=== PATIENT | female | born 1965 | race Caucasian/White ===

== ENCOUNTER → 2016-09-20 | Outpatient (CLI) | payer MEDICARE ==
--- NOTE | 2016-09-21 13:15 | XR ---
EXAMINATION TYPE: XR Hip Bilateral and AP pelvis DATE OF EXAM: 09/20/2016 2:24 PM COMPARISON: NONE HISTORY: Gait disturbance, multiple sclerosis, spasm TECHNIQUE: A single AP view of the pelvis is obtained. Two views of the bilateral hips are obtained. FINDINGS: There is no acute fracture/dislocation evident in the pelvis. The hip and sacroiliac join ts appear symmetric and unremarkable. The overlying soft tissue appears unremarkable. There is a lum bar scoliosis. Two views of bilateral hips show no acute fracture or dislocation. Loss of joint space present at the right hip with subchondral sclerosis, geode formation. Coxa valga deformity is suspected in the righ t hip, acetabular coverage thought to be shallow possibly due to developmental dysplasia of the hip. The overlying soft tissue is unremarkable. IMPRESSION: There is no acute fracture or dislocation in the pelvis or bilateral hips. Osteoarthriti c change in the right hip. Additional findings above.
== END | disposition home or self-care (01) ==
LOC: RADXRYALE 13:55
PROVIDERS: ATTEND Physical Medicine & Rehabilitation
DX: G35 Multiple sclerosis (principal); M16.11 Unilateral primary osteoarthritis, right hip
CPT/HCPCS: 73521

== ENCOUNTER → 2017-01-10 | Outpatient (CLI) | payer MEDICARE ==
[2017-01-10 11:56] LABS: Basophils % (A) 1 %; CHCM 31.7; Eosinophils # (A) 0.1 k/uL (0-0.7); Eosinophils % (A) 2 %; HCT 40.6 % (34.0-46.0); HDW 2.44; HGB 12.8 gm/dL (11.4-16.0); Luc # (Auto) 0.11; Luc % (Auto) 2; Lymphocytes # (A) 1.7 k/uL (1.0-4.8); Lymphocytes % (A) 24 %; MCH 29.1 pg (25.0-35.0); MCHC 31.6 g/dL (31.0-37.0); MCV 91.9 fL (80.0-100.0); Mean Platelet Volume 6.9; Monocytes # (A) 0.5 k/uL (0-1.0); Monocytes % (A) 7 %; Neutrophils # (A) 4.7 k/uL (1.3-7.7); Neutrophils % (A) 66 %; RBC 4.42 m/uL (3.80-5.40); RDW 13.5 % (11.5-15.5); WBC 7.1 k/uL (3.8-10.6); WBC (Perox) 7.16
[2017-01-10 11:59] LABS: Non-African American GFR(MDRD) >60 (>60 ml/min/1.73 sqM)
[2017-01-10 12:42] LABS: ALT 30 U/L (9-52); AST 17 U/L (14-36); Alkaline Phosphatase 69 U/L (38-126); Anion Gap 7 mmol/L; Blood Urea Nitrogen 13 mg/dL (7-17); Calcium 9.4 mg/dL (8.4-10.2); Carbon Dioxide 31 mmol/L (22-30); Chloride 104 mmol/L (98-107); Glucose 99 mg/dL (74-99); Non-African American GFR(MDRD) >60 (>60 ml/min/1.73 sqM); Potassium 4.2 mmol/L (3.5-5.1); Sodium 142 mmol/L (137-145); Total Bilirubin 0.4 mg/dL (0.2-1.3); Total Protein 6.6 g/dL (6.3-8.2)
[2017-01-10 13:14] LABS: Hepatitis B Surface Ag Index 0.07
[2017-01-10 13:19] LABS: Hepatitis B Core IgM Index 0.02
[2017-01-10 13:31] LABS: Hepatitis C Virus IgG Ab Negative (Negative); Hepatitis C Virus IgG Index 0.13
--- NOTE | 2017-01-10 15:34 | MR ---
MRI brain with and without contrast EXAMINATION TYPE: MR brain wo/w con DATE OF EXAM: 01/10/2017 1:02 PM COMPARISON: NONE HISTORY: ms TECHNIQUE: Multiplanar, multisequence images of the brain and brainstem is performed without and with utilizing 15 mL intravenous MultiHance gadolinium contrast. Demyelinating disease protocol with additional Sag ittal Flair sequence performed. FINDINGS: T2 Lesions Present : Yes Approximate Number of Lesions: Stable, similar number, periventricular confluent and scattered hyperi ntensities are present on T2 and inversion recovery Locations Identified : Pericallosal, periventricular, juxtacortical Enhancing Lesion(s) Present: No T1 Hypointense Lesion(s) Present: Yes Change from Prior: None Diffusion weighted images demonstrate no evidence of a recent infarct or other diffusion abnormality. Stable probable arachnoid cyst at the level of the posterior lateral ventricles. The ventricular sys tem and cisternal spaces are otherwise normal in size and appearance. The brain volume is age approp riate. Corpus callosum and pituitary, cervical medullary junction are stable. The craniocervical junction a ppears within normal limits. Post contrast images demonstrate no abnormal enhancement. The dural bhakti ous sinuses appear patent. The visualized sinuses are clear and the globes are intact. IMPRESSION: Stable exam, findings compatible with patient's history of multiple sclerosis
== END | disposition home or self-care (01) ==
LOC: RADMRIMAIN 11:21
PROVIDERS: ATTEND Psychiatry & Neurology Neurology
DX: G35 Multiple sclerosis (principal); N28.9 Disorder of kidney and ureter, unspecified; E55.9 Vitamin D deficiency, unspecified; R60.9 Edema, unspecified
CPT/HCPCS: 82784 ×3; 82785; 80053; 80074; 82565; 85025; 82306; 70553; A9577

== ENCOUNTER → 2017-03-02 | Outpatient (CLI) | payer MEDICARE ==
--- NOTE | 2017-03-06 07:34 | MM ---
Reason for exam: screening (asymptomatic). Last mammogram was performed 10 years and 11 months ago. History: Patient had first child at age 38. Family history of breast cancer in grandmother. Physical Findings: A clinical breast exam by your physician is recommended on an annual basis and results should be correlated with mammographic findings. MG 3D Screening Mammo W/Cad Bilateral CC and MLO view(s) were taken. No prior studies available for comparison. The breast tissue is heterogeneously dense. This may lower the sensitivity of mammography. Subtle partially obscured, partially circumscribed nodularity in the left anterior upper outer quadrant warrants further evaluation. Patient previous 2005 exam is no longer available. ASSESSMENT: Incomplete: need additional imaging evaluation, BI-RAD 0 RECOMMENDATION: Special view mammogram of the left breast. If lesion persists on supplemental views, image directed ultrasound is recommended. [facility] will attempt to contact patient to return for supplemental views and ultrasound if indicated.
== END | disposition home or self-care (01) ==
LOC: RADMAMWWP 13:23
PROVIDERS: ATTEND Family Medicine
DX: Z12.31 Encounter for screening mammogram for malignant neoplasm of breast (principal); R92.8 Other abnormal and inconclusive findings on diagnostic imaging of breast
CPT/HCPCS: 77063; G0202

== ENCOUNTER → 2017-03-14 | Outpatient (CLI) | payer MEDICARE ==
--- NOTE | 2017-03-15 08:48 | MM ---
Reason for exam: additional evaluation requested from abnormal screening. Last mammogram was performed less than 1 month ago. History: Patient had first child at age 38. Family history of breast cancer in grandmother. Physical Findings: Nurse did not find any significant physical abnormalities on exam. MG 3D Work Up W/Cad LT CC and MLO view(s) were taken of the left breast. Prior study comparison: March 02, 2017, bilateral MG 3d screening mammo w/cad. The breast tissue is heterogeneously dense. This may lower the sensitivity of mammography. 5mm nodularity persists in the anterior upper outer quadrant. Ultrasound is recommended. These results were verbally communicated with the patient and result sheet given to the patient on 03/14/17. ASSESSMENT: Incomplete: need additional imaging evaluation, BI-RAD 0 RECOMMENDATION: Ultrasound of the left breast. (upper outer quadrant)
--- NOTE | 2017-03-15 08:52 | USB ---
Reason for exam: additional evaluation requested from abnormal screening. History: Patient had first child at age 38. Family history of breast cancer in grandmother. US Breast Workup Limited LT Right breast ultrasound demonstrates a 0.7 x 0.3 x 0.5cm oval, mixed lesion at 12 o'clock and a 0.5 x 0.3 x 0.5cm oval, mixed lesion at 12 o'clock, both possibly 1 contiguous lesion. As no other lesion is seen in the upper outer quadrant, this probably corresponds to the mammographic finding. Biopsy with clip placement is recommended. These results were verbally communicated with the patient and result sheet given to the patient on 03/14/17. ASSESSMENT: Suspicious, BI-RAD 4 RECOMMENDATION: Surgical consultation and ultrasound core biopsy of the left breast. Called Dr. Johnson with mammographic findings and has scheduled an appointment for the patient for 04/06/17 at 9:[address] Harris. Biopsy schedule for 03/21/17 at 12:20. PRELIMINARY REPORT CALLED AND FAXED TO DR. HARRIS ON 03/15/17 /ROWAN. RYAN
== END | disposition home or self-care (01) ==
LOC: RADMAMWWP 13:09
PROVIDERS: ATTEND Family Medicine
DX: R92.8 Other abnormal and inconclusive findings on diagnostic imaging of breast (principal)
CPT/HCPCS: 76642; G0206; G0279

== ENCOUNTER → 2017-03-21 | Day surgery (SDC) | payer MEDICARE ==
[2017-03-21 12:11] VITALS: RESP 16; TEMP 97.9; BMI 29.9
[2017-03-21 14:03] VITALS: BP 130/80; PULSE 74
--- NOTE | 2017-03-21 15:49 | USB ---
EXAMINATION TYPE: US biopsy breast VAD LT DATE OF EXAM: 03/21/2017 CLINICAL HISTORY: R92.8 ABN Mammogram. TECHNIQUE: Ultrasound guided core biopsy of left breast. COMPARISON: NONE FINDINGS: The procedure of ultrasound guided core biopsy was explained to the patient. Benefits, alt ernatives, and risks were discussed. An informed consent was then obtained. The patient was placed in supine positioning for imaging and for the procedure. The overlying skin w as prepped and draped in usual sterile fashion. Lidocaine was used as anesthetic into the skin and s ubcutaneous tissue up to area of concern in the left breast. A luis was made with surgical scalpel. Under ultrasound guidance, a 12-gauge vacuum assisted biopsy gun device was used to obtain 13 core sa mples. The mammotome needle was placed under the lesion and upward sequential samples were obtained. Following 6 samples did not appear to be significant reduction in the size of the lesion. The lesion appeared very hard during the biopsy there was some upward movement of the lesion with the cutting s ection of the core. For this reason additional sections are obtained. The second set of 7 core sample s obtained following additional lidocaine administration did appear to reduce the size of the lesion and with adequate samples competently obtained the procedure was finished. Following this, a biopsy c lip was left in lesion. No significant hemorrhaging was evident. The patient tolerated the procedure well without any immediate complication. The patient was kept in the radiology department for short stay after the procedure and then discharged home in stable condi tion. Discharge instructions were discussed patient. Postprocedure mammogram is obtained. Clip placement is in the anterior upper outer left breast. IMPRESSION: Successful ultrasound guided core biopsy of area of concern in the left breast. Recommendations: 1. Recommendations are pending pathology results.
== END ==
LOC: RADUSWWP 11:50
PROVIDERS: ATTEND Surgery
DX: N60.12 Diffuse cystic mastopathy of left breast (principal); N60.82 Other benign mammary dysplasias of left breast; R92.8 Other abnormal and inconclusive findings on diagnostic imaging of breast
CPT/HCPCS: 88305; 19083; G0206; A4648; J2001

== ENCOUNTER → 2017-05-12 | Outpatient (CLI) | payer MEDICARE ==
[2017-05-12 13:15] LABS: Blood Urea Nitrogen 15 mg/dL (7-17); Non-African American GFR(MDRD) >60 (>60 ml/min/1.73 sqM)
--- NOTE | 2017-05-12 14:14 | MR ---
EXAMINATION TYPE: MR lumbar spine wo con DATE OF EXAM: 05/12/2017 COMPARISON: 08/10/2015 HISTORY: ms TECHNIQUE: T1 and T2 axial and sagittal images of the lumbar spine are submitted. Correlate with th e numbering system prior to any surgical intervention used on the MRI. FINDINGS: There is no abnormal signal seen within the visualized spinal cord or paraspinal soft tissu es. Multilevel degenerative disc disease noted. At T12-L1, diffuse disc bulge mild facet arthropathy. Changes mildly narrow the spinal canal without significant foraminal stenosis. Hypertrophic change of the facets. At L1-L2, trace retrolisthesis with right paracentral bulging disc and facet arthropathy. Changes cau se mild spinal canal stenosis without significant foraminal stenosis. There is facet arthropathy. At L2-L3, diffuse disc bulge with posterior annular tear and hypertrophic facet arthropathy. Changes result in moderate spinal canal stenosis with mild bilateral neuroforaminal stenosis. At L3-L4, there is trace retrolisthesis with diffuse disc bulge greater paracentrally and laterally t o the right and hypertrophic facet arthropathy. Additional ligamentum flavum thickening and resultant mild left and moderate right neuroforaminal stenosis with mild spinal canal stenosis. At L4-L5, there is anterolisthesis with broad-based disc bulging with a more focal right paracentral disc protrusion. And facet arthropathy with ligamentum flavum thickening. Changes result in moderate right neuroforaminal stenosis with mild spinal canal stenosis. There appears to be abutment of the tr aversing right L5 nerve. At L5-S1, diffuse bulging disc with hypertrophic facet arthropathy. Changes result in moderate left a nd mild right neuroforaminal stenosis without spinal canal stenosis. No prevertebral or paravertebral soft tissue abnormality seen. IMPRESSION: 1. Multilevel disc/endplate degenerative change as well as hypertrophic facet arthropathy, progressed from 04/11/2012. Posterior annular fissure is at T12-L1, L2-L3, and L5-S1. 2. New edematous Modic type I endplate change towards the right at L4-L5. Rightward truncal shift or leftward spinal curvature probably positional or due to muscle spasm as this is new from 2011. 3. New grade 1 anterolisthesis at L4-L5 and new trace retrolisthesis at L1-L2, L2-L3, and L4-L5. 4. Mild spinal canal stenoses throughout, though, moderate at L2-L3. 5. Variable mild to moderate neuroforaminal stenoses as outlined above. There is also abutment of the traversing right L5 nerve root at the L4-L5 level. IMPRESSION: 1.
--- NOTE | 2017-05-12 19:01 | MR ---
EXAMINATION TYPE: MR cervical spine wo/w con DATE OF EXAM: 05/12/2017 COMPARISON: Prior cervical MRI 10/30/2015 HISTORY: ms TECHNIQUE: Multiplanar, multisequence images of the cervical spine were acquired utilizing 8 mL intravenous Gada vist gadolinium contrast. Diffusion weighted imaging was performed. C2-C3: No evidence for degenerative disc disease. No disc bulge/herniation or protrusion. No Canal stenosis. Foramina are patent bilaterally. C3-C4: Posterior disc bulge in the left posterior paracentral location is again noted causing anterol ateral mass effect on the thecal sac. There is some left-sided foraminal encroachment.. C4-C5: Small posterior disc bulge causes minimal anterior mass effect on the thecal sac. Right-sided foraminal encroachment is present greater than left. C5-C6: Stable posterior disc herniation is present contacting the anterior cervical cord.. C6-C7: Small posterior disc bulge causes minimal anterior mass effect on the thecal sac. C7-T1: No evidence for degenerative disc disease. No disc bulge/herniation or protrusion. No Canal stenosis. Foramina are patent bilaterally. Cervical segments are intact. There is normal alignment. Cervical spinal cord shows stable abnormal signal. Increased signal on T2-weighted sequences is present at C5-6. Increased signal more inferio rly within the cord is not as well seen but is present. Suspect abnormal signal also present within t he medulla seen on sagittal image is similar to prior exam as well as likely within the cervical cord at C2-3 seen on axial images at or than on sagittal images. No abnormal enhancement following contra st administration.. Craniovertebral junction relationships are within normal limits. IMPRESSION: Stable abnormal signal within the cervical cord is suspected, correlate for multiple sclerosis. Addit ional findings above. Degenerative disc changes are again noted.
== END | disposition home or self-care (01) ==
LOC: RADMRIMAIN 12:15
PROVIDERS: ATTEND Psychiatry & Neurology Neurology
DX: M48.06 Spinal stenosis, lumbar region (principal); M43.16 Spondylolisthesis, lumbar region; M47.816 Spondylosis without myelopathy or radiculopathy, lumbar region; M46.86 Other specified inflammatory spondylopathies, lumbar region; M47.812 Spondylosis without myelopathy or radiculopathy, cervical region; G35 Multiple sclerosis; N28.9 Disorder of kidney and ureter, unspecified
CPT/HCPCS: 82565; 84520; 72148; 72156; 36415; A9581

== ENCOUNTER → 2017-10-09 | Outpatient (CLI) | payer MEDICARE ==
--- NOTE | 2017-10-09 11:21 | MM ---
Reason for exam: follow-up at short interval from prior study. Last mammogram was performed 7 months ago. History: Patient had first child at age 38. Family history of breast cancer in grandmother. Benign US biopsy breast VAD LT of the left breast, March 21, 2017. Physical Findings: Nurse did not find any significant physical abnormalities on exam. MG 3D Diag Mammo W/Cad LT CC and MLO view(s) were taken of the left breast. Prior study comparison: March 21, 2017, left breast MG diagnostic mammo LT wo CAD. March 14, 2017, left breast MG 3d work up w/cad LT. The breast tissue is heterogeneously dense. This may lower the sensitivity of mammography. 1 o'clock focal asymmetry redemonstrated. Coil clip is located here. These results were verbally communicated with the patient and result sheet given to the patient on 10/06/17. ASSESSMENT: Incomplete: need additional imaging evaluation, BI-RAD 0 RECOMMENDATION: Ultrasound of the left breast.
--- NOTE | 2017-10-09 11:23 | USB ---
Reason for exam: additional evaluation requested from abnormal screening. History: Patient had first child at age 38. Family history of breast cancer in grandmother. Benign US biopsy breast VAD LT of the left breast, March 21, 2017. US Breast LT Left breast ultrasound includes all four quadrants, the retroareolar region and axilla. Finding demonstrates a 0.5 x 0.5 x 0.3cm area of previous biopsy at 12 o'clock. This is smaller post biopsy, previously measuring 7 x 5 x 3mm. As the patient's baseline exam was performed on 03/02/17, additional short term mammogram follow up recommended. These results were verbally communicated with the patient and result sheet given to the patient on 10/09/17. ASSESSMENT: Probably benign, BI-RAD 3 RECOMMENDATION: Follow-up diagnostic mammogram of both breasts in 6 months.
== END | disposition home or self-care (01) ==
LOC: RADMAMWWP 09:28
PROVIDERS: ATTEND Surgery
DX: R92.8 Other abnormal and inconclusive findings on diagnostic imaging of breast (principal); Z80.3 Family history of malignant neoplasm of breast
CPT/HCPCS: 77065; 76641; G0279

== ENCOUNTER → 2017-10-12 | Outpatient (CLI) | payer MEDICARE ==
[2017-10-12 10:28] LABS: Blood Urea Nitrogen 18 mg/dL (7-17)
--- NOTE | 2017-10-12 11:45 | MR ---
EXAMINATION TYPE: MR brain wo/w con DATE OF EXAM: 10/12/2017 COMPARISON: 01/10/2017 HISTORY: 52 year-old female follow-up Multiple sclerosis TECHNIQUE: Multiplanar, multisequence images of the brain and brainstem is performed without and with utilizing 8.5 mL intravenous Gadavist gadolinium contrast. Demyelinating disease protocol with eli tional Sagittal Flair sequence performed. FINDINGS: T2 Lesions Present : Yes Approximate Number of Lesions: Approximately 20-25 in the left cerebral hemisphere and 15 in the righ t cerebral hemisphere. Locations Identified : Only a couple juxta cortical. Many periventricular and deep white matter lesio ns with Posey finger appearance. Size of Reference Lesion(s): 1. 7 x 7 mm in the left periatrial white matter, axial image 18, unchanged. 2. 1.7 x 0.6 cm left paraventricular region between the atrium and temporal horn, sagittal image 10, unchanged. Enhancing Lesion(s) Present: No T1 Hypointense Lesion(s) Present: Yes Change from Prior: None Diffusion weighted images demonstrate no evidence of a recent infarct or other diffusion abnormality. There is some T2 shine through in the left paraventricular region. Incidental choroid plexus cysts are unchanged. There is no worrisome extra-axial fluid collection. The ventricular system and cisternal spaces are normal in size and appearance. The brain volume is age appropriate. Persistent cavum vergae. Midline structures otherwise demonstrate normal morphology. The craniocervi nadja junction appears within normal limits. Post contrast images demonstrate no abnormal enhancement. The dural venous sinuses appear patent. Mild mucosal thickening left maxillary sinus. Globes are intact. IMPRESSION: 1. Stable chronic T2 bright white matter change with moderate scattered burden primarily in the periv entricular and deep white matter. Findings in keeping with the patient's MS. 2. No appreciable change or enhancing lesions.
== END | disposition home or self-care (01) ==
LOC: RADMRIMAIN 09:47
PROVIDERS: ATTEND Psychiatry & Neurology Neurology
DX: R93.0 Abnormal findings on diagnostic imaging of skull and head, not elsewhere classified (principal); G35 Multiple sclerosis; I10 Essential (primary) hypertension
CPT/HCPCS: 82565; 84520; 70553; 36415; A9581

== ENCOUNTER → 2018-03-30 | Outpatient (CLI) | payer MEDICARE ==
--- NOTE | 2018-03-31 15:06 | MR ---
EXAMINATION TYPE: MR brain wo/w con DATE OF EXAM: 03/30/2018 COMPARISON: 10/12/2017 HISTORY: MS CONTRAST: Performed utilizing 8.5 mL intravenous Gadavist gadolinium contrast. TECHNIQUE: Multiplanar, multisequence imaging of the brain is performed on a 3.0 [place] magnet. Demye linating disease protocol with additional Sagittal Flair sequence is performed. Study is performed wi thin 24 hours of arrival to the hospital. FINDINGS: T2 White Matter Lesions Present : Yes Approximate Number of Lesions: Multiple scattered Locations Identified : Periventricular oriented perpendicular to the corpus callosum, centrum semiova le ovale bilaterally. Size of Largest Lesion(s): 1. 1.2 x 0.8 x 0.7 cm. Location: Posterior right periventricular. Sequence 501 Image 21 (axial) and Sequence 601 Image 22 (sagittal). 2. 0.8 x 0.6 x 0.6 cm. Location: Periventricular adjacent to the occipital horn of the left lateral ventricle Sequence 501 Image 18 (axial) and Sequence 601 Image 11 (sagittal). Enhancing Lesion(s) Present: No Change from Prior: Stable Diffusion-weighted imaging is performed. There may be some stable subtle uptake in the left centrum semiovale this area appears to correspond to hyperintensity on T2 and inversion recovery weighted seq uences. This could be an active plaque. This was present previously and appears stable in size and co nfiguration. Ventricles and sulci are appropriate for the patient age. There is a patent cavum vergae, a normal va riant. There are no abnormal extra-axial fluid collections. The ventricular system and cisternal spaces are normal in size and appearance. The brain volume is age appropriate. The craniocervical junction homero ears within normal limits. The dural venous sinuses appear patent. No abnormal enhancement is present on post contrast images. . The visualized sinuses are clear. Visu alized orbits are unremarkable. IMPRESSION: 1. Scattered multiple bilateral periventricular lesions and atypical configuration from multiple scl erosis. Findings are stable from the comparison of 10/12/2017. A subtle active plaque may be adjacent to the superior left lateral ventricle and appears stable from October 10, 2017
== END ==
LOC: RADMRIMAIN 11:31
PROVIDERS: ATTEND Psychiatry & Neurology Neurology
DX: G35 Multiple sclerosis (principal)
CPT/HCPCS: 70553; A9581

== ENCOUNTER → 2018-03-30 | Outpatient (CLI) | payer MEDICARE ==
--- NOTE | 2018-03-31 10:55 | MM ---
Reason for exam: additional evaluation requested from prior study. Last mammogram was performed 6 months ago. History: Patient had first child at age 38. Family history of breast cancer in grandmother. Benign US biopsy breast VAD LT of the left breast, March 21, 2017. Physical Findings: Nurse did not find any significant physical abnormalities on exam. MG 3D Diag Mammo W/Cad [place] Bilateral CC and MLO view(s) were taken. Prior study comparison: October 09, 2017, left breast MG 3d diag mammo w/cad LT. March 21, 2017, left breast MG diagnostic mammo LT wo CAD. The breast tissue is heterogeneously dense. This may lower the sensitivity of mammography. Left breast biopsy marker noted around stable subcentimeter masses. These results were verbally communicated with the patient and result sheet given to the patient on 03/30/18. ASSESSMENT: Benign, BI-RAD 2 RECOMMENDATION: Routine screening mammogram of both breasts in 1 year.
== END | disposition home or self-care (01) ==
LOC: RADMAMWWP 10:35
PROVIDERS: ATTEND Surgery
DX: R92.8 Other abnormal and inconclusive findings on diagnostic imaging of breast (principal)
CPT/HCPCS: 77066; G0279; 77062

== ENCOUNTER → 2018-09-28 | Outpatient (CLI) | payer MEDICARE ==
[2018-09-28 16:19] LABS: ALT 40 U/L (9-52); AST 22 U/L (14-36); Albumin 3.9 g/dL (3.5-5.0); Alkaline Phosphatase 64 U/L (38-126); Anion Gap 5 mmol/L; Blood Urea Nitrogen 14 mg/dL (7-17); Calcium 9.9 mg/dL (8.4-10.2); Carbon Dioxide 33 mmol/L (22-30); Chloride 104 mmol/L (98-107); Glucose 92 mg/dL (74-99); Potassium 4.2 mmol/L (3.5-5.1); Sodium 142 mmol/L (137-145); Total Bilirubin 0.4 mg/dL (0.2-1.3); Total Protein 6.9 g/dL (6.3-8.2)
[2018-09-28 16:30] LABS: Basophils % (A) 1 %; Eosinophils # (A) 0.1 k/uL (0-0.7); Eosinophils % (A) 2 %; HCT 43.9 % (34.0-46.0); HGB 14.1 gm/dL (11.4-16.0); Lymphocytes # (A) 1.4 k/uL (1.0-4.8); Lymphocytes % (A) 23 %; MCH 28.4 pg (25.0-35.0); MCHC 32.2 g/dL (31.0-37.0); MCV 88.2 fL (80.0-100.0); Mean Platelet Volume 7.1; Monocytes # (A) 0.5 k/uL (0-1.0); Monocytes % (A) 8 %; Neutrophils % (A) 66 %; Platelet Count 309 k/uL (150-450); RBC 4.98 m/uL (3.80-5.40); RDW 14.5 % (11.5-15.5)
[2018-09-28 23:10] LABS: Immunoglobulin E 13.4 IU/mL (0.00-114.00)
--- NOTE | 2018-09-29 19:13 | MR ---
EXAMINATION TYPE: MR brain wo/w con DATE OF EXAM: 09/28/2018 COMPARISON: 03/30/2018 and 10/12/2017 HISTORY: HX of MS, Previous MRI on PACS, Gadavist 7.5ml TECHNIQUE: Multiplanar, multisequence images of the brain and brainstem is performed without and with utilizing 7.5 mL intravenous Gadavist gadolinium contrast. Demyelinating disease protocol with additional Sagi ttal Flair sequence performed. FINDINGS: T2 Lesions Present : Yes Approximate Number of Lesions: Multiple scattered, predominantly in a pericallosal distribution with a Posey finger appearance typical of multiple sclerosis. Overall there are approximately 26 within t he left cerebral hemisphere and 15 within the right cerebral hemisphere. Locations Identified : Pericallosal and periventricular again with a Posey's finger appearance. Size of Reference Lesion(s): 1. 0.8 cm x 0.6 cm x 0.6 cm on axial image 18 and sagittal image 15 , stable from the prior 2 1.1 cm x 0.5 cm x 0.9 cm on axial image 22 and sagittal image 25 , stable from the prior Enhancing Lesion(s) Present: No T1 Hypointense Lesion(s) Present: Yes Change from Prior: No significant change Diffusion weighted images demonstrate no evidence of a recent infarct or other diffusion abnormality. There is no worrisome extra-axial fluid collection. The ventricular system and cisternal spaces ar e prominent in size symmetrically compatible with mild age-related volume loss incidentally noted cav um septum pellucidum et verge, normal variant. Incidentally noted choroid plexus cysts are again pres ent. Midline structures demonstrate normal morphology. The craniocervical junction appears within normal limits. Post contrast images demonstrate no abnormal enhancement. The dural venous sinuses appear pa tent. The visualized sinuses are clear and the globes are intact. IMPRESSION: Overall stable appearance of the pericallosal demyelinating plaques in keeping with the patient's his tory of multiple sclerosis. No enhancing lesions or lesions that demonstrate restricted diffusion to indicate active demyelination at this time.
== END | disposition home or self-care (01) ==
LOC: RADMRIMAIN 15:41
PROVIDERS: ATTEND Psychiatry & Neurology Neurology
DX: G35 Multiple sclerosis (principal)
CPT/HCPCS: 80053; 85025; 82784 ×3; 82785; 70553; A9585; 86355; 86357; 86359; 86360

== ENCOUNTER → 2020-01-31 | Outpatient (CLI) | payer MEDICARE ==
--- NOTE | 2020-02-02 19:11 | MR ---
EXAMINATION TYPE: MR brain wo/w con DATE OF EXAM: 01/31/2020 COMPARISON: 09/28/2018 HISTORY: 54-year-old female MS follow-up TECHNIQUE: Multiplanar, multisequence images of the brain and brainstem is performed without and with utilizing 8.5 mL intravenous Gadavist gadolinium contrast. Demyelinating disease protocol with eli tional Sagittal Flair sequence performed. FINDINGS: T2 Lesions Present : Yes Approximate Number of Lesions: 20 - 25 in the left cerebral hemisphere and 10 - 15 in the right cereb ral hemisphere. Locations Identified : Pericallosal, periatrial, deep white matter. Some Posey finger configuration. Size of Reference Lesion(s): 1. 7 mm left periatrial region, axial image 20, unchanged. 2. 1.2 x 0.6 cm in the right pericallosal region, axial image 23, unchanged. Enhancing Lesion(s) Present: None T1 Hypointense Lesion(s) Present: Yes Change from Prior: None Diffusion weighted images demonstrate no evidence of a recent infarct or other diffusion abnormality. There is no worrisome extra-axial fluid collection. The ventricular system and cisternal spaces ar e normal in size and appearance. The brain volume is age appropriate. Redemonstrated normal variation cavum vergae. Midline structures demonstrate normal morphology. The craniocervical junction appears within normal limits. Post contrast images demonstrate no abnormal enhancement. The dural venous sinuses appear patent. The visualized sinuses are clear and the globes are intact. IMPRESSION: Stable moderate scattered burden of pericallosal and periatrial white matter change in keeping with p atient's history of multiple sclerosis. No enhancing plaques or acute intracranial abnormality seen.
== END | disposition home or self-care (01) ==
LOC: RADMRIMAIN 13:48
PROVIDERS: ATTEND Psychiatry & Neurology Neurology
DX: G35 Multiple sclerosis (principal)
CPT/HCPCS: 70553; A9585

== ENCOUNTER → 2020-08-07 | Outpatient (CLI) | payer MEDICARE ==
--- NOTE | 2020-08-07 11:10 | US ---
EXAMINATION TYPE: US kidneys/renal and bladder DATE OF EXAM: 08/07/2020 COMPARISON: NONE CLINICAL HISTORY: N39.0 frequent uti. HX uti. Patient was scanned in a motorized chair. EXAM MEASUREMENTS: Right Kidney: 8.9 x 3.8 x 3.8 cm Left Kidney: 7.8 x 3.7 x 4.0 cm Limited visualization due to bowel gas and patient position Right Kidney: Limited visualization of medial and lower pole kidney Left Kidney: Lateral mid cystic appearing lesion = 1.1 x 1.2 x 1.2 cm Bladder: Internal debris seen Bilateral Jets seen IMPRESSION: 1. Left small renal cyst. 2. Debris within the urinary bladder
== END | disposition home or self-care (01) ==
LOC: RADUSWWP 10:27
PROVIDERS: ATTEND Urology
DX: N28.1 Cyst of kidney, acquired (principal); N39.0 Urinary tract infection, site not specified
CPT/HCPCS: 76770

== ENCOUNTER → 2020-08-24 | Outpatient (CLI) | payer MEDICARE ==
[2020-08-24 12:25] LABS: Basophils # (A) 0.1 k/uL (0-0.2); Basophils % (A) 1 %; Eosinophils # (A) 0.3 k/uL (0-0.7); Eosinophils % (A) 5 %; HCT 40.9 % (34.0-46.0); HGB 13.7 gm/dL (11.4-16.0); Lymphocytes # (A) 1.3 k/uL (1.0-4.8); Lymphocytes % (A) 25 %; MCH 30.2 pg (25.0-35.0); MCHC 33.5 g/dL (31.0-37.0); MCV 90.3 fL (80.0-100.0); Mean Platelet Volume 7.3; Monocytes # (A) 0.5 k/uL (0-1.0); Monocytes % (A) 10 %; Neutrophils % (A) 57 %; Platelet Count 242 k/uL (150-450); RBC 4.53 m/uL (3.80-5.40); RDW 13.8 % (11.5-15.5); WBC 5.2 k/uL (3.8-10.6)
[2020-08-24 12:43] LABS: Appearance,Urine Cloudy (Clear); Bilirubin,Urine Negative (Negative); Blood,Urine Negative (Negative); Calcium Oxalate Crystals,Urine Few /hpf; Color,Urine Yellow; Glucose,Urine (UA) Negative (Negative); Ketones,Urine Negative (Negative); Leukocyte Esterase,Urine Moderate (Negative); Mucus,Urine Rare /hpf; Nitrite,Urine Negative (Negative); Protein,Urine Negative (Negative); Specific Gravity,Urine 1.016 (1.001-1.035); Squamous Epithelial Cell,Urine 2 /hpf (0-4); Urobilinogen,Urine <2.0 mg/dL (<2.0); WBC,Urine 22 /hpf (0-5)
[2020-08-24 13:54] LABS: Erythrocyte Sedimentation Rate 11 mm/hr (0-20)
[2020-08-24 19:55] LABS: African American GFR (CKD) 120.6 (60.0-200.0); Anion Gap 4.6 mmol/L (4.00-12.00); BUN/Creat Ratio 26.67 Ratio (12.00-20.00); Calcium 9.6 mg/dL (8.7-10.3); Carbon Dioxide 31.4 mmol/L (21.6-31.8); Non-African American GFR(CKD) 104.1 (60.0-200.0); Potassium 4.1 mmol/L (3.5-5.5); Total Bilirubin 0.6 mg/dL (0.3-1.2)
[2020-08-24 21:14] LABS: Immunoglobulin E 7.07 IU/mL (0.00-114.00)
[2020-08-25 12:31] LABS: Natural Killer Cell (CD16/56) 145 cell/ul (60-500); Natural Killer Cell (CD16/56)% 10 % (3-24); T Helper Cell (CD4) 1065 cell/ul (443-1471); T Helper Cell (CD4) % 69 % (35-66); T Suppressor Cell (CD8) 289 cell/ul (190-832); T Suppressor Cell (CD8) % 19 % (9-37); T4/T8 Ratio (CD4:CD8) 3.7 (1.0-3.7); Total B Cell (CD19) <5 cell/ul (100-524); Total T Cell (CD3) 1365 cell/ul (704-2138); Total T Cell (CD3)% 89 % (55-86)
== END | disposition home or self-care (01) ==
LOC: LABWHC1 11:02
PROVIDERS: ATTEND Internal Medicine Infectious Disease
DX: N39.0 Urinary tract infection, site not specified (principal); N31.9 Neuromuscular dysfunction of bladder, unspecified; G35 Multiple sclerosis
CPT/HCPCS: 36415; 80053; 81001; 82784; 82785; 85025; 85652; 86355; 86357; 86359; 86360; 87040; 87086

== ENCOUNTER 2020-10-23 11:31 | Emergency (ER) | payer MEDICARE ==
[2020-10-23] MEDS ORDERED: ONDANSETRON 4 MG/2 ML VIAL IVP STA (11:52)
[2020-10-23] MEDS ORDERED: SODIUM CHLORIDE 0.9% 1,000 ML IV STA (11:52)
--- NOTE | 2020-10-23 12:04 | ED ---
Weakness HPI - General Source: patient, EMS Mode of arrival: EMS Limitations: physical limitation <Kathryn Johnson - Last Filed: 10/23/20 12:01> <Rui Andrade - Last Filed: 10/23/20 14:17> - General Chief complaint: Weakness Stated complaint: Weakness Time Seen by Provider: 10/23/20 11:35 - History of Present Illness Initial comments: Patient is a 55-year-old female with history of multiple sclerosis, uses w heelchair, presenting to the emergency Department with complaints of weakness, and poor appetite as been increasing over the past few days. Patient states that she finished a course of Keflex for a UTI about 3 days ago but feels like she is still having symptoms and concerned that the infection did not clear up. She states she's been having intermittent fevers at home. She does have some intermittent nausea, no vomiting, no diarrhea. She denies any abdominal pain. She denies chest pain or shortness of breath. She does admit to a cough over the last few days. She denies having a headache. She has no further complaints at this time. Upon arrival to the ER, patient's temperature is 99.0, pulse is 101, BP is 129/91, respiratory rate 20. (Kathryn Johnson) - Related Data Home Medications Medication Instructions Recorded Confirmed Gabapentin [Neurontin] 600 mg PO BID 03/16/17 10/23/20 tiZANidine HCL [Zanaflex] 8 mg PO BID 03/16/17 10/23/20 Gabapentin 600 mg PO DAILY PRN 10/23/20 10/23/20 Omeprazole [PriLOSEC] 20 mg PO DAILY 10/23/20 10/23/20 Solifenacin Succinate [Vesicare] 10 mg PO HS 10/23/20 10/23/20 Previous Rx's Medication Instructions Recorded Levofloxacin [Levaquin] 750 mg PO DAILY 10 Days #10 tab 10/23/20 Allergies Allergy/AdvReac Type Severity Reaction Status Date / Time No Known Allergies Allergy Verified 10/23/20 14:00 Review of Systems ROS Other: All systems not noted in ROS Statement are negative. <Kathryn Johnson - Last Filed: 10/23/20 12:01> ROS Other: All systems not noted in ROS Statement are negative. <Rui Andrade - Last Filed: 10/23/20 14:17> ROS Statement: Those systems with pertinent positive or pertinent negative responses have been documented in the HPI. Past Medical History Additional Past Medical History / Comment(s): Multiple sclerosis, spastic colon, left leg edema History of Any Multi-Drug Resistant Organisms: None Reported Past Surgical History: No Surgical Hx Reported Additional Past Surgical History / Comment(s): MS Past Anesthesia/Blood Transfusion Reactions: No Reported Reaction Past Psychological History: No Psychological Hx Reported Smoking Status: Never smoker Past Alcohol Use History: None Reported Past Drug Use History: None Reported <Kathryn Johnson - Last Filed: 10/23/20 12:01> General Exam Limitations: physical limitation <Kathryn Johnson - Last Filed: 10/23/20 12:01> - General Exam Comments Initial Comments: GENERAL: Patient is well-developed and well-nourished. Patient is nontoxic and in no acute distress, does appear fatigued. HEAD: Atraumatic, normocephalic. EYES: Pupils equal round and reactive to light, extraocular movements intact, sclera anicteric, conjunctiva are normal. Eyelids were unremarkable. ENT: TMs normal, nares patent, oropharynx clear without exudates. Dry mucous membranes. NECK: Normal range of motion, supple without lymphadenopathy or JVD. LUNGS: Unlabored respirations. Breath sounds clear to auscultation bilaterally and equal. No wheezes rales or rhonchi. HEART: Regular rate and rhythm without murmurs, rubs or gallops. ABDOMEN: Soft, nontender, normoactive bowel sounds. No guarding, no rebound. No masses appreciated. : Deferred MUSCULOSKELETAL: Patient has history of MS, multiple muscle contractures, patient uses wheelchair. No swelling or erythema, neurovascular intact. NEUROLOGICAL: Patient is alert and oriented x 3. Motor and sensory are also intact. Cranial nerves II through XII grossly intact. Symmetrical smile. Normal speech. PSYCH: Normal mood, normal affect. SKIN: Warm, Dry, normal turgor, no rashes or lesions noted. (Kathryn Johnson) Course Vital Signs 10/23/20 10/23/20 11:32 13:29 Temperature 99.0 F Pulse Rate 101 H 99 Respiratory 20 20 Rate Blood Pressure 129/91 130/86 O2 Sat by Pulse 99 99 Oximetry EKG Findings - EKG Comments: EKG Findings:: Ventricular rate 97 bpm, HI interval 130 ms, QRS duration 82 ms, QT/QTC 344/436 ms, PareT axes 46/49/28. Normal sinus rhythm, low voltage QRS, borderline ECG. <Rui Andrade - Last Filed: 10/23/20 14:17> Medical Decision Making - Lab Data Result diagrams: 10/23/20 12:11 10/23/20 12:11 - EKG Data -: EKG Interpreted by Me EKG shows normal: sinus rhythm Rate: normal - Radiology Data Radiology results: report reviewed, image reviewed <Rui Andrade - Last Filed: 10/23/20 14:17> - Medical Decision Making Case was taken over from Sherrill Johnson PA-C. She ordered labs, 4 mg Zofran, 1 L normal saline, EKG. Urine showed high levels white blood cells, 1 g of Rocephin ordered. Case discussed with Dr. Bro, decided was located discharge patient home with follow-up to urologist. (Rui Andrade) - Lab Data Lab Results 10/23/20 10/23/20 10/23/20 Range/Units 12:11 12:11 12:11 WBC 7.0 (3.8-10.6) k/uL RBC 5.19 (3.80-5.40) m/uL Hgb 14.6 (11.4-16.0) gm/dL Hct 44.0 (34.0-46.0) % MCV 84.7 D (80.0-100.0) fL MCH 28.2 (25.0-35.0) pg MCHC 33.3 (31.0-37.0) g/dL RDW 13.6 (11.5-15.5) % Plt Count 253 (150-450) k/uL MPV 7.5 Neutrophils % 83 % Lymphocytes % 7 % Monocytes % 8 % Eosinophils % 0 % Basophils % 1 % Neutrophils # 5.8 (1.3-7.7) k/uL Lymphocytes # 0.5 L (1.0-4.8) k/uL Monocytes # 0.6 (0-1.0) k/uL Eosinophils # 0.0 (0-0.7) k/uL Basophils # 0.1 (0-0.2) k/uL PT 11.3 (9.0-12.0) sec INR 1.1 (<1.2) APTT 27.8 (22.0-30.0) sec Sodium 136 L (137-145) mmol/L Potassium 4.1 (3.5-5.1) mmol/L Chloride 96 L (98-107) mmol/L Carbon Dioxide 33 H (22-30) mmol/L Anion Gap 7 mmol/L BUN 14 (7-17) mg/dL Creatinine 0.71 (0.52-1.04) mg/dL Est GFR (CKD-EPI)AfAm >90 (>60 ml/min/1.73 sqM) Est GFR (CKD-EPI)NonAf >90 (>60 ml/min/1.73 sqM) Glucose 139 H (74-99) mg/dL Plasma Lactic Acid Gavino (0.7-2.0) mmol/L Calcium 9.4 (8.4-10.2) mg/dL Magnesium 2.1 (1.6-2.3) mg/dL Total Bilirubin 0.6 (0.2-1.3) mg/dL AST 40 H (14-36) U/L ALT 21 (4-34) U/L Alkaline Phosphatase 78 (38-126) U/L Troponin I (0.000-0.034) ng/mL Total Protein 6.0 L (6.3-8.2) g/dL Albumin 3.2 L (3.5-5.0) g/dL Urine Color Urine Appearance (Clear) Urine pH (5.0-8.0) Ur Specific Forman (1.001-1.035) Urine Protein (Negative) Urine Glucose (UA) (Negative) Urine Ketones (Negative) Urine Blood (Negative) Urine Nitrite (Negative) Urine Bilirubin (Negative) Urine Urobilinogen (<2.0) mg/dL Ur Leukocyte Esterase (Negative) Urine RBC (0-5) /hpf Urine WBC (0-5) /hpf Urine WBC Clumps (None) /hpf Ur Squamous Epith Cells (0-4) /hpf Urine Bacteria (None) /hpf Urine Mucus (None) /hpf 10/23/20 10/23/20 10/23/20 Range/Units 12:11 12:11 12:58 WBC (3.8-10.6) k/uL RBC (3.80-5.40) m/uL Hgb (11.4-16.0) gm/dL Hct (34.0-46.0) % MCV (80.0-100.0) fL MCH (25.0-35.0) pg MCHC (31.0-37.0) g/dL RDW (11.5-15.5) % Plt Count (150-450) k/uL MPV Neutrophils % % Lymphocytes % % Monocytes % % Eosinophils % % Basophils % % Neutrophils # (1.3-7.7) k/uL Lymphocytes # (1.0-4.8) k/uL Monocytes # (0-1.0) k/uL Eosinophils # (0-0.7) k/uL Basophils # (0-0.2) k/uL PT (9.0-12.0) sec INR (<1.2) APTT (22.0-30.0) sec Sodium (137-145) mmol/L Potassium (3.5-5.1) mmol/L Chloride (98-107) mmol/L Carbon Dioxide (22-30) mmol/L Anion Gap mmol/L BUN (7-17) mg/dL Creatinine (0.52-1.04) mg/dL Est GFR (CKD-EPI)AfAm (>60 ml/min/1.73 sqM) Est GFR (CKD-EPI)NonAf (>60 ml/min/1.73 sqM) Glucose (74-99) mg/dL Plasma Lactic Acid Gavino 1.3 (0.7-2.0) mmol/L Calcium (8.4-10.2) mg/dL Magnesium (1.6-2.3) mg/dL Total Bilirubin (0.2-1.3) mg/dL AST (14-36) U/L ALT (4-34) U/L Alkaline Phosphatase (38-126) U/L Troponin I <0.012 (0.000-0.034) ng/mL Total Protein (6.3-8.2) g/dL Albumin (3.5-5.0) g/dL Urine Color Yellow Urine Appearance Cloudy H (Clear) Urine pH 6.0 (5.0-8.0) Ur Specific Forman 1.014 (1.001-1.035) Urine Protein 1+ H (Negative) Urine Glucose (UA) Negative (Negative) Urine Ketones Trace H (Negative) Urine Blood Small H (Negative) Urine Nitrite Negative (Negative) Urine Bilirubin Negative (Negative) Urine Urobilinogen <2.0 (<2.0) mg/dL Ur Leukocyte Esterase Large H (Negative) Urine RBC 15 H (0-5) /hpf Urine WBC 135 H (0-5) /hpf Urine WBC Clumps Moderate H (None) /hpf Ur Squamous Epith Cells <1 (0-4) /hpf Urine Bacteria Rare H (None) /hpf Urine Mucus Rare H (None) /hpf - EKG Data EKG Comments: Ventricular rate 97 bpm, HI interval 130 ms, QRS duration 82 ms, QT/QTC 344/436 ms, PareT axes 46/49/28. Normal sinus rhythm, low voltage QRS, borderline ECG. (Rui Andrade) - Radiology Data Chest x-ray: Some probable subsegmental atelectasis noted, consider follow-up (Rui Andrade) Disposition <Kathryn Johnson - Last Filed: 10/23/20 12:01> Is patient prescribed a controlled substance at d/c from ED?: No Time of Disposition: 14:17 <Rui Andrade - Last Filed: 10/23/20 14:17> Clinical Impression: Chronic urinary tract infection Disposition: HOME SELF-CARE Condition: Stable Instructions (If sedation given, give patient instructions): Urinary Tract Infection in Women (ED) Additional Instructions: Please return to the Emergency Department if symptoms worsen or any other concerns. Line take antibiotics as prescribed until complete. Follow-up with primary care 1-2 days. Follow-up with urologist as soon as possible. Increase oral fluid intake. Prescriptions: Levofloxacin [Levaquin] 750 mg PO DAILY 10 Days #10 tab Referrals: Myranda Pascual MD [Primary Care Provider] - 1-2 days
[2020-10-23 12:22] LABS: Basophils # (A) 0.1 k/uL (0-0.2); Basophils % (A) 1 %; Eosinophils % (A) 0 %; HGB 14.6 gm/dL (11.4-16.0); Lymphocytes # (A) 0.5 k/uL (1.0-4.8); Lymphocytes % (A) 7 %; MCH 28.2 pg (25.0-35.0); MCHC 33.3 g/dL (31.0-37.0); Mean Platelet Volume 7.5; Monocytes # (A) 0.6 k/uL (0-1.0); Monocytes % (A) 8 %; Neutrophils # (A) 5.8 k/uL (1.3-7.7); Neutrophils % (A) 83 %; Platelet Count 253 k/uL (150-450); RBC 5.19 m/uL (3.80-5.40); RDW 13.6 % (11.5-15.5)
[2020-10-23 12:34] LABS: ALT 21 U/L (4-34); AST 40 U/L (14-36); African American GFR (CKD) >90 (>60 ml/min/1.73 sqM); Albumin 3.2 g/dL (3.5-5.0); Alkaline Phosphatase 78 U/L (38-126); Anion Gap 7 mmol/L; Blood Urea Nitrogen 14 mg/dL (7-17); Calcium 9.4 mg/dL (8.4-10.2); Carbon Dioxide 33 mmol/L (22-30); Chloride 96 mmol/L (98-107); Glucose 139 mg/dL (74-99); Magnesium 2.1 mg/dL (1.6-2.3); Non-African American GFR(CKD) >90 (>60 ml/min/1.73 sqM); Potassium 4.1 mmol/L (3.5-5.1); Sodium 136 mmol/L (137-145); Total Bilirubin 0.6 mg/dL (0.2-1.3)
[2020-10-23 12:37] LABS: MCV 84.7 fL (80.0-100.0)
[2020-10-23 12:40] LABS: INR 1.1 (<1.2); Partial Thromboplastin Time 27.8 sec (22.0-30.0); Prothrombin Time 11.3 sec (9.0-12.0)
[2020-10-23 13:26] LABS: Appearance,Urine Cloudy (Clear); Bacteria,Urine Rare /hpf; Bilirubin,Urine Negative (Negative); Blood,Urine Small (Negative); Color,Urine Yellow; Glucose,Urine (UA) Negative (Negative); Ketones,Urine Trace (Negative); Leukocyte Esterase,Urine Large (Negative); Mucus,Urine Rare /hpf; Nitrite,Urine Negative (Negative); Protein,Urine 1+ (Negative); RBC,Urine 15 /hpf (0-5); Specific Gravity,Urine 1.014 (1.001-1.035); Squamous Epithelial Cell,Urine <1 /hpf (0-4); Urobilinogen,Urine <2.0 mg/dL (<2.0); WBC,Urine 135 /hpf (0-5)
--- NOTE | 2020-10-23 13:27 | XR ---
EXAMINATION TYPE: XR chest 2V DATE OF EXAM: 10/23/2020 COMPARISON: Prior chest x-ray 12/22/2014 HISTORY: Weakness TECHNIQUE: Frontal and lateral views of the chest are obtained. FINDINGS: There is no pleural effusion or pneumothorax seen. Bandlike area of increased attenuation is superimposed over the heart the lateral exam and is present in the right middle lobe. The cardiac silhouette size is within normal limits. The osseous structures are intact, there is a spinal curva ture and the patient is rotated, there are overlying leads. IMPRESSION: Some probable subsegmental atelectasis is noted, consider follow-up.
[2020-10-23] MEDS ORDERED: cefTRIAXone IN SWFI 1,000 MG/10 ML SYRINGE IVP STA (13:43)
[2020-10-23 15:22] VITALS: BP 135/78; PULSE 94; RESP 16; TEMP 98
== END 2020-10-23 18:56 | disposition home or self-care (01) ==
LOC: EC 11:31
DX: N39.0 Urinary tract infection, site not specified (principal); G35 Multiple sclerosis; Z79.899 Other long term (current) drug therapy
CPT/HCPCS: 36415; 93005; 80053; 83605; 83735; 84484; 85025; 85610; 85730; 81001; 87086; 87077; 87186; 71046; 99285; 96374; 96375; 96361; J2405; J0696

== ENCOUNTER 2020-10-30 17:29 | Inpatient (IN) | payer MEDICARE ==
[2020-10-30] MEDS ORDERED: CEFEPIME 1 GM in SODIUM CHLORIDE 0.9% 50 ML IVPB STA (17:55)
[2020-10-30] MEDS ORDERED: SODIUM CHLORIDE 0.9% 1,000 ML IV ONE (17:56)
--- NOTE | 2020-10-30 17:56 | ED ---
Female Urogenital HPI - General Chief complaint: Urogenital Stated complaint: UTI Time Seen by Provider: 10/30/20 17:33 Source: patient Mode of arrival: wheelchair Limitations: physical limitation - History of Present Illness Initial comments: 55-year-old female presenting to the ER today for chief complaint of called back for a urine sensitivities. Patient states she was called secondary to her urine cultures. Patient states that she has MS and has been struggling with recurrent UTIs since April. Patient states that she was told that no oral medication would be sufficient to cover the bacteria growing in the culture and patient was told to return. Patient states she has felt overall unwell decreased appetite with generalized weakness. She states she does not feel like she is having a MS exacerbation she denies any eye pain localized weakness speech changes. Patient denies any known fevers denies chills. Patient admits to some nausea. She denies any chest pain short of breath abdominal pain back pain. Patient denies any history of stones. Remaining review of system negative patient's heart rate elevated upon arrival. - Related Data Home Medications Medication Instructions Recorded Confirmed Gabapentin [Neurontin] 600 mg PO BID 03/16/17 10/23/20 tiZANidine HCL [Zanaflex] 8 mg PO BID 03/16/17 10/23/20 Gabapentin 600 mg PO DAILY PRN 10/23/20 10/23/20 Omeprazole [PriLOSEC] 20 mg PO DAILY 10/23/20 10/23/20 Solifenacin Succinate [Vesicare] 10 mg PO HS 10/23/20 10/23/20 Previous Rx's Medication Instructions Recorded Levofloxacin [Levaquin] 750 mg PO DAILY 10 Days #10 tab 10/23/20 Allergies Allergy/AdvReac Type Severity Reaction Status Date / Time No Known Allergies Allergy Verified 10/30/20 17:32 Review of Systems ROS Statement: Those systems with pertinent positive or pertinent negative responses have been documented in the HPI. ROS Other: All systems not noted in ROS Statement are negative. Past Medical History Additional Past Medical History / Comment(s): Multiple sclerosis, spastic colon, left leg edema History of Any Multi-Drug Resistant Organisms: None Reported Past Surgical History: No Surgical Hx Reported Additional Past Surgical History / Comment(s): MS Past Anesthesia/Blood Transfusion Reactions: No Reported Reaction Past Psychological History: No Psychological Hx Reported Smoking Status: Never smoker Past Alcohol Use History: None Reported Past Drug Use History: None Reported General Exam - General Exam Comments Initial Comments: General: The patient is awake and alert, in no distress Eye: Pupils are equal, round and reactive to light, extra-ocular movements are intact. No nystagmus. There is normal conjunctiva bilaterally. No signs of icterus. Ears, nose, mouth and throat: There are moist mucous membranes and no oral lesions. Neck: The neck is supple, there is no tenderness or JVD. Cardiovascular: There is a regular rate and rhythm. No murmur, rub or gallop is appreciated. Respiratory: Lungs are clear to auscultation, respirations are non-labored, breath sounds are equal. No wheezes, stridor, rales, or rhonchi. Gastrointestinal: Soft, non-distended, non-tender abdomen without masses or organomegaly noted. There is no rebound or guarding present. No CVA tenderness. Musculoskeletal: Normal ROM, no tenderness. Strength 5/5 of the UE. weakness appreciated of the LE b/l (pt states this is baseline-she is wheelchair bound). Sensation intact. Radidal and DP pulses equal bilaterally 2+. Neurological: A&O x 3. CN II-XII intact grossly, There are no obvious motor or sensory deficits. Coordination appears grossly intact. Speech is normal. Skin: Skin is warm and dry and no rashes or lesions are noted. Psychiatric: Cooperative, appropriate mood & affect, normal judgment. Limitations: physical limitation Course Vital Signs 10/30/20 17:29 Temperature 97.9 F Pulse Rate 122 H Respiratory 20 Rate Blood Pressure 121/78 O2 Sat by Pulse 96 Oximetry Medical Decision Making - Medical Decision Making 55-year-old female presenting today for chief complaint of oral abx resistant UTI. Sensitivities reviewed by attending provider Dr. Mishra. Only IV agents appear to cover the bacteria grown. pt has some constitutional symptoms, tachycardia on arrival. blood cultures pending. Discussed case with Juanita [facility] covering for Dr. Mckinney she is agreeable to admission. Cefepime initiated. Disposition Clinical Impression: Failure of outpatient treatment, Antibiotic-resistant bacterial infection, UTI (urinary tract infection), Generalized weakness Disposition: ADMITTED IP TO THIS HOSP Condition: Stable Is patient prescribed a controlled substance at d/c from ED?: No Referrals: Myranda Pascual MD [Primary Care Provider] - 1-2 days Time of Disposition: 17:56 Decision to Admit Reason: Admit from EC Decision Date: 10/30/20 Decision Time: 17:56
[2020-10-30] MEDS ORDERED: NALOXONE 0.4 MG/ML 1 ML VIAL IV PRN (18:01)
[2020-10-30 18:46] LABS: Basophils # (A) 0.1 k/uL (0-0.2); Basophils % (A) 1 %; Eosinophils # (A) 0.1 k/uL (0-0.7); Eosinophils % (A) 1 %; Lymphocytes # (A) 1.1 k/uL (1.0-4.8); Lymphocytes % (A) 14 %; MCH 27.9 pg (25.0-35.0); MCHC 33.3 g/dL (31.0-37.0); MCV 83.8 fL (80.0-100.0); Mean Platelet Volume 7.4; Monocytes # (A) 0.6 k/uL (0-1.0); Monocytes % (A) 8 %; Neutrophils # (A) 5.7 k/uL (1.3-7.7); Neutrophils % (A) 75 %; Platelet Count 320 k/uL (150-450); RBC 5.37 m/uL (3.80-5.40); RDW 13.9 % (11.5-15.5); WBC 7.6 k/uL (3.8-10.6)
[2020-10-30 18:56] LABS: ALT 32 U/L (4-34); AST 32 U/L (14-36); African American GFR (CKD) >90 (>60 ml/min/1.73 sqM); Albumin 3.6 g/dL (3.5-5.0); Alkaline Phosphatase 76 U/L (38-126); Anion Gap 10 mmol/L; Blood Urea Nitrogen 13 mg/dL (7-17); Carbon Dioxide 31 mmol/L (22-30); Chloride 93 mmol/L (98-107); Glucose 107 mg/dL (74-99); Non-African American GFR(CKD) >90 (>60 ml/min/1.73 sqM); Potassium 3.8 mmol/L (3.5-5.1); Sodium 134 mmol/L (137-145); Total Bilirubin 0.8 mg/dL (0.2-1.3); Total Protein 6.6 g/dL (6.3-8.2)
[2020-10-30 20:15] LABS: Appearance,Urine Cloudy (Clear); Bacteria,Urine Rare /hpf; Bilirubin,Urine Negative (Negative); Blood,Urine Small (Negative); Color,Urine Yellow; Glucose,Urine (UA) Negative (Negative); Ketones,Urine 1+ (Negative); Leukocyte Esterase,Urine Large (Negative); Mucus,Urine Rare /hpf; Nitrite,Urine Positive (Negative); Protein,Urine 1+ (Negative); RBC,Urine 10 /hpf (0-5); Squamous Epithelial Cell,Urine <1 /hpf (0-4); Urobilinogen,Urine <2.0 mg/dL (<2.0); WBC,Urine 33 /hpf (0-5)
[2020-10-30] MEDS: SODIUM CHLORIDE 0.9% 1,000 ML IV SCH (21:16)
[2020-10-30] MEDS ORDERED: GABAPENTIN 300 MG CAP PO PRN (21:45)
[2020-10-30] MEDS: GABAPENTIN 300 MG CAP PO SCH (22:22)
[2020-10-30] MEDS: tiZANidine 4 MG TAB PO SCH (22:22)
[2020-10-30] MEDS: TROSPIUM CHLORIDE 20 MG TABLET PO SCH (22:22)
[2020-10-31] MEDS: SODIUM CHLORIDE 0.9% 1,000 ML IV SCH ×2 (04:45→20:13)
[2020-10-31] MEDS: GABAPENTIN 300 MG CAP PO SCH ×2 (08:05→20:13)
[2020-10-31] MEDS: PANTOPRAZOLE 40 MG TABLET PO SCH (08:05)
[2020-10-31] MEDS: tiZANidine 4 MG TAB PO SCH ×2 (08:06→20:13)
[2020-10-31] MEDS: TROSPIUM CHLORIDE 20 MG TABLET PO SCH ×2 (08:06→20:13)
[2020-10-31 11:49] VITALS: BMI 31.6
[2020-10-31] MEDS: CEFEPIME 2 GM in SODIUM CHLORIDE 0.9% 100 ML IVPB SCH ×2 (12:33→20:13)
--- NOTE | 2020-10-31 14:33 | P.HPIM ---
History of Present Illness 55-year-old pleasant female came in for possibility of urinary tract infection patient history is vague she says she always has UTI symptoms including dysuria. Patient urine is fairly abnormal with highly elevated white blood cell count and RBCs. Patient does have history of seconded progressive multiple sclerosis. She does have fevers and chills patient the symptoms of fever has been going on for last couple days. Patient was having some nausea as well patient denied any increased weakness or new weakness of sensory changes. Patient is found to have Covid 19. Patient has Pseudomonas in the urine in the past because of which patient was given a dose of cefepime which will be continued during this hospital physician as well. Because of the complicated urinary tract infection, infectious disease will be consulted. Patient was comparing of lightheadedness and is bit hyponatremic and probably bit dehydrated Review of Systems PHYSICAL EXAMINATION: GENERAL: The patient is alert and oriented x3, not in any acute distress. Well developed, well nourished. HEENT: Pupils are round and equally reacting to light. EOMI. No scleral icterus. No conjunctival pallor. Normocephalic, atraumatic. No pharyngeal erythema. No thyromegaly. CARDIOVASCULAR: S1 and S2 present. No murmurs, rubs, or gallops. PULMONARY: Chest is clear to auscultation, no wheezing or crackles. ABDOMEN: Soft, nontender, nondistended, normoactive bowel sounds. No palpable organomegaly. MUSCULOSKELETAL: No joint swelling or deformity. EXTREMITIES: No cyanosis, clubbing, or pedal edema. NEUROLOGICAL: Gross neurological examination did not reveal any focal deficits. SKIN: No rashes. Past Medical History Additional Past Medical History / Comment(s): Multiple sclerosis, spastic colon, left leg edema, right buttocks decub History of Any Multi-Drug Resistant Organisms: None Reported Past Surgical History: No Surgical Hx Reported Additional Past Surgical History / Comment(s): MS Past Anesthesia/Blood Transfusion Reactions: No Reported Reaction Past Psychological History: No Psychological Hx Reported Smoking Status: Never smoker Past Alcohol Use History: None Reported Past Drug Use History: None Reported Medications and Allergies Home Medications Medication Instructions Recorded Confirmed Type Gabapentin [Neurontin] 600 mg PO BID 03/16/17 10/30/20 History tiZANidine HCL [Zanaflex] 8 mg PO BID 03/16/17 10/30/20 History Gabapentin 600 mg PO DAILY PRN 10/23/20 10/30/20 History Levofloxacin [Levaquin] 750 mg PO DAILY 10 Days #10 tab 10/23/20 10/30/20 Rx Omeprazole [PriLOSEC] 20 mg PO DAILY 10/23/20 10/30/20 History Solifenacin Succinate [Vesicare] 10 mg PO HS 10/23/20 10/30/20 History Allergies Allergy/AdvReac Type Severity Reaction Status Date / Time No Known Allergies Allergy Verified 10/30/20 19:40 Physical Exam Vitals: Vital Signs Temp Pulse Pulse Resp BP BP Pulse Ox 10/31/20 09:34 97.7 F 96 16 113/70 98 10/31/20 08:06 96 16 10/31/20 04:56 97.7 F 79 15 101/67 98 10/31/20 02:22 97.7 F 77 16 99/62 98 10/30/20 21:58 97.9 F 104 H 16 131/86 99 10/30/20 17:29 97.9 F 122 H 20 121/78 96 Intake and Output 10/30/20 10/31/20 10/31/20 22:59 06:59 14:59 Other: Voiding Method Bedside Commode Bedpan Bedpan Diaper Diaper Incontinent Incontinent # Voids 1 Weight 86.183 kg 86.183 kg PHYSICAL EXAMINATION: GENERAL: The patient is alert and oriented x3, not in any acute distress. Well developed, well nourished. HEENT: Pupils are round and equally reacting to light. EOMI. No scleral icterus. No conjunctival pallor. Normocephalic, atraumatic. No pharyngeal erythema. No thyromegaly. CARDIOVASCULAR: S1 and S2 present. No murmurs, rubs, or gallops. PULMONARY: Chest is clear to auscultation, no wheezing or crackles. ABDOMEN: Soft, nontender, nondistended, normoactive bowel sounds. No palpable organomegaly. MUSCULOSKELETAL: No joint swelling or deformity. EXTREMITIES: No cyanosis, clubbing, or pedal edema. NEUROLOGICAL: No new focal deficits SKIN: No rashes. Results CBC & Chem 7: 10/30/20 18:42 10/30/20 18:42 Labs: Abnormal Lab Results - Last 24 Hours (Table) 10/30/20 10/30/2010/30/21 Range/Units 18:42 18:44 20:03 Sodium 134 L (137-145) mmol/L Chloride 93 L (98-107) mmol/L Carbon Dioxide 31 H (22-30) mmol/L Creatinine 0.51 L (0.52-1.04) mg/dL Glucose 107 H (74-99) mg/dL Urine Appearance Cloudy H (Clear) Urine Protein 1+ H (Negative) Urine Ketones 1+ H (Negative) Urine Blood Small H (Negative) Urine Nitrite Positive H (Negative) Ur Leukocyte Esterase Large H (Negative) Urine RBC 10 H (0-5) /hpf Urine WBC 33 H (0-5) /hpf Urine WBC Clumps Few H (None) /hpf Urine Bacteria Rare H (None) /hpf Urine Mucus Rare H (None) /hpf Coronavirus (PCR) Detected A (Not Detectd) Microbiology - Last 24 Hours (Table) 10/30/20 20:03 Urine Culture - Preliminary Urine,Catheterized Thrombosis Risk Factor Assmnt - Choose All That Apply Each Factor Represents 1 point: Age 41-60 years, Medical pt on bed rest, Obesity (BMI >25), Swollen legs (current) Thrombosis Risk Factor Assessment Total Risk Factor Score: 4 Thrombosis Risk Factor Assessment Level: Moderate Risk Assessment and Plan Plan: -sepsis most probably secondary to urinary tract infection patient has Pseudomonas urinary UTI in the past patient will be started on cefepime infectious disease will be consulted. Patient has Covid 19 as well. -Dizziness: Secondary to hypervolemia patient was started on IV fluids -hypovolemic hyponatremia -Tachycardia secondary to fever and hypokalemia IV fluids as mentioned above -History of multiple sclerosis: Supportive care. -Gastroesophageal reflux disease Hyperlipidemia -DVT prophylaxis with Lovenox
[2020-10-31] MEDS ORDERED: CEFEPIME 2 GM in SODIUM CHLORIDE 0.9% 100 ML IVPB SCH (16:00)
[2020-11-01] MEDS: CEFEPIME 2 GM in SODIUM CHLORIDE 0.9% 100 ML IVPB SCH ×3 (04:02→20:26)
[2020-11-01] MEDS: SODIUM CHLORIDE 0.9% 1,000 ML IV SCH ×3 (04:02→20:28)
[2020-11-01] MEDS: PANTOPRAZOLE 40 MG TABLET PO SCH (07:34)
[2020-11-01] MEDS: ENOXAPARIN 40 MG/0.4 ML SYRINGE SQ SCH (07:34)
[2020-11-01] MEDS: TROSPIUM CHLORIDE 20 MG TABLET PO SCH ×2 (07:34→20:25)
[2020-11-01] MEDS: GABAPENTIN 300 MG CAP PO SCH ×2 (07:34→20:26)
[2020-11-01] MEDS: tiZANidine 4 MG TAB PO SCH ×2 (07:35→20:25)
--- NOTE | 2020-11-01 07:57 | XR ---
EXAMINATION TYPE: XR chest 1V portable DATE OF EXAM: 11/01/2020 COMPARISON: 10/23/2020 HISTORY: Shortness of breath TECHNIQUE: Single frontal view of the chest is obtained. FINDINGS: There are new partially consolidative airspace opacities in the right lung base laterally. Left lung remains clear. The pulmonary vasculature is not congested and the heart size is normal. The osseous structures are intact. IMPRESSION: Multifocal consolidative opacities in the right lung base laterally consistent with inflammation or e pao. Follow-up to resolution is recommended.
--- NOTE | 2020-11-01 09:11 | US ---
EXAMINATION TYPE: US kidneys/renal and bladder DATE OF EXAM: 11/01/2020 COMPARISON: 2019 CLINICAL HISTORY: uti and bacteremia Exam done portable. EXAM MEASUREMENTS: Right Kidney: 9.0 x 4.6 x 5.0 cm Left Kidney: 9.1 x 3.9 x 4.1 cm Difficult and limited study due to rib shadowing, overlying bowel gas and patient position Right Kidney: visualized portions appear wnl Left Kidney: 1.2 x 1.2cm cystic lesion lateral inferior pole Bladder: not distended There is no evidence for hydronephrosis at this point in time. No nephrolithiasis is seen. No oneil s are identified. The urinary bladder is anechoic. Bilateral ureteral jets are seen. IMPRESSION: No significant abnormality seen. There is no renal calcification or hydronephrosis.
--- NOTE | 2020-11-01 09:25 | CONS ---
CONSULTATION DATE OF SERVICE: 10/31/2020 REASON FOR CONSULTATION: 1. Recurrent urinary tract infection. 2. Positive Covid test. HISTORY OF PRESENT ILLNESS: The patient is a 55-year-old female with a past medical history significant for MRSA in this patient who did have a history of recurrent UTI infection in April 2020. The patient apparently did have a recent urine culture done in outpatient setting by her primary care physician that did grow Pseudomonas resistant to Cipro. Hence, the patient was advised to go to the hospital. The patient denies having any high-grade fever, rigors or chills. The patient denies any headache no chest pain, shortness of breath or cough. No abdominal pain. No diarrhea. Patient has been complaining of generalized not feeling well. Decreased appetite and weakness. The patient did have some incontinence of urine. Denies significant burning or frequency though. No flank pain. On presentation to the hospital, the patient has been was afebrile. No fever has been recorded in the last 24 hours. The patient is currently sating 98% on room air. The patient did have normal white count with no left shift. BUN of 13, creatinine 0.51. Urine was cloudy with large leukocyte esterase, 33 WBCs. [place] PCR came back positive. Urine culture done on the shows a Pseudomonas and E coli. The patient was started on cefepime. Infectious Disease was consulted for further management of antibiotic therapy. REVIEW OF SYSTEMS: Positive points have been mentioned in HPI. Rest of the systems are negative. PAST MEDICAL HISTORY: Multiple sclerosis, recurrent urinary tract infection. PAST SURGICAL HISTORY: No major surgery. SOCIAL HISTORY: Denies smoking, drinking or drug use. FAMILY HISTORY: No pertinent findings noticed. ALLERGIES: No known drug allergies. MEDICATIONS: The patient is currently Cefepime 2 grams q.8 hours, Lovenox, Neurontin, Narcan, Protonix, IV fluids and . PHYSICAL EXAMINATION: Her blood pressure 113/79 and pulse 105, temperature 97.8. She is 98% on room air. General description: The patient is a middle-aged female lying in bed in no distress. No tachypnea or accessory muscles of respiration use. HEENT: Examination shows no pallor or scleral icterus. Oral mucous membranes is dry. NECK: Trachea central. No thyromegaly. LUNGS: Unlabored breathing, clear to auscultation with no wheeze or crackles. HEART: S1-S2 regular rate and rhythm. ABDOMEN: Soft, no tenderness. No guarding. No rigidity. EXTREMITIES: No edema of the feet. SKIN EXAMINATION: No rash or mass palpable. NEUROLOGICAL: The patient is awake, alert and oriented times three. Mood and affect normal. LABS: Hemoglobin is 15.5, white count 7.7, BUN of 13, creatinine 0.51. Urine was positive. Urine culture on October 23 was positive for E coli and Pseudomonas. Covid testing is positive. DIAGNOSTIC IMPRESSION AND PLAN: 1. Patient admitted to the hospital with urinary symptoms and the outpatient urine culture positive for Pseudomonas that was resistant to the oral Cipro which could have been used to treat his infection. However, the patient does not have any fever or elevated white count. Clinical suspicion low for any deep infection. 2. Patient with a positive Covid test, but no need significant respiratory symptoms. PLAN: 1. We will obtain ultrasound of the kidney to make sure no evidence of any abnormality. 2. We will check a chest x-ray, CRP, procalcitonin and LDH to see any Covid infection. 3. Droplet isolation and respiratory support. 4. We will follow on clinical condition and investigation to further adjust medication if needed. Thank you for this consultation. Will follow this patient along with you. MMODL / IJN: [id number] /
--- NOTE | 2020-11-01 11:31 | P.GSCN ---
History of Present Illness Consult date: 11/01/20 History of present illness: I was asked to see this 55-year-old female for urinary retention. She has slowly progressive multiple sclerosis. She is immobilized by this. She has lower extremity spasticity. She has diminished hand usage. She is cared for by her most of the time. The patient was brought into the hospital for a urinary tract infection. The urine culture however is no growth. Her white count is normal. She has been found to be in urinary retention with a postvoid residual of 491 mL. The patient is interviewed at the bedside. She states she's had urologic evaluation in the past and was told she was not having recurrent infection. She has lower urinary tract symptoms. She had her renal ultrasound that showed no abnormalities. She does have spontaneous and occasional urgency incontinence. She has difficulty transferring by herself. Review of Systems All systems: negative - Constitutional Denies fever, Denies weight loss - EENT Eyes: denies blurred vision Ears, nose, mouth and throat: Denies dysphagia - Cardiovascular Denies chest pain, Denies shortness of breath - Respiratory Denies cough, Denies 7 - Gastrointestinal Reports as per HPI - Genitourinary Genitourinary: Reports as per HPI, Denies dysuria, Denies hematuria - Musculoskeletal Reports as per HPI - Integumentary Denies rash, Denies unusual bruising - Neurological Denies headaches, Denies syncope - Hematologic/Lymphatic Denies easy bleeding, Denies easy bruising Past Medical History Additional Past Medical History / Comment(s): Multiple sclerosis, spastic colon, left leg edema, right buttocks decub History of Any Multi-Drug Resistant Organisms: None Reported Past Surgical History: No Surgical Hx Reported Additional Past Surgical History / Comment(s): MS Past Anesthesia/Blood Transfusion Reactions: No Reported Reaction Past Psychological History: No Psychological Hx Reported Smoking Status: Never smoker Past Alcohol Use History: None Reported Past Drug Use History: None Reported Medications and Allergies Home Medications Medication Instructions Recorded Confirmed Type Gabapentin [Neurontin] 600 mg PO BID 03/16/17 10/30/20 History tiZANidine HCL [Zanaflex] 8 mg PO BID 03/16/17 10/30/20 History Gabapentin 600 mg PO DAILY PRN 10/23/20 10/30/20 History Levofloxacin [Levaquin] 750 mg PO DAILY 10 Days #10 tab 10/23/20 10/30/20 Rx Omeprazole [PriLOSEC] 20 mg PO DAILY 10/23/20 10/30/20 History Solifenacin Succinate [Vesicare] 10 mg PO HS 10/23/20 10/30/20 History Allergies Allergy/AdvReac Type Severity Reaction Status Date / Time No Known Allergies Allergy Verified 10/30/20 19:40 Surgical - Exam Vital Signs Temp Pulse Resp BP Pulse Ox 97.9 F 122 H 20 121/78 96 10/30/20 17:29 10/30/20 17:29 10/30/20 17:29 10/30/20 17:29 10/30/20 17:29 - General well developed, well nourished, no distress - Eyes PERRL - ENT no hearing loss - Neck trachea midline - Respiratory normal expansion, normal respiratory effort - Cardiovascular Rhythm: regular - Abdomen Abdomen: soft, non tender - Neurologic Lower extremity spasm - Psychiatric oriented to time, oriented to person, oriented to place, speech is normal, memory intact Results - Labs 10/30/20 18:42 10/30/20 18:42 Abnormal Lab Results - Last 24 Hours (Table) 11/01/20 11/01/20 Range/Units 06:09 06:09 D-Dimer 1.25 H (<0.60) mg/L FEU Procalcitonin 0.10 H (0.02-0.09) ng/mL Microbiology - Last 24 Hours (Table) 10/30/20 18:42 Blood Culture - Preliminary Blood No Growth after 24 hours 10/30/20 18:42 Blood Culture - Preliminary Blood No Growth after 24 hours 10/30/20 20:03 Urine Culture - Final Urine,Catheterized - Imaging US - kidney/bladder: report reviewed, image reviewed Assessment and Plan Assessment: Impression: Multiple sclerosis, advanced. Lower urinary tract issues including possible recurrent infection, incontinence and urine retention. Recommendations: I had a lengthy discussion with the patient about a neurogenic bladder associated with multiple sclerosis. She appears to have incomplete bladder emptying leading to aggravating situation such as incontinence, infection, smell and perhaps decubiti. We discussed management of this scenario including intermittent catheterization or indwelling catheter. Her , her laborer electroplating, was wondering about a suprapubic tube. I discussed the pros and cons of the suprapubic tube. I think she would be best served with a urethral Myers at present. She seems to want one as her incontinence and other issues have become bothersome to both her and her . Fortunately she does not have any upper tract issues. From a urologic standpoint it would be okay to discharge her home with a Myers and then see her in follow-up in the office with me. Time with Patient: Greater than 30
--- NOTE | 2020-11-01 15:28 | P.PN ---
Subjective 55-year-old pleasant female came in for possibility of urinary tract infection patient history is vague she says she always has UTI symptoms including dysuria. Patient urine is fairly abnormal with highly elevated white blood cell count and RBCs. Patient does have history of seconded progressive multiple sclerosis. She does have fevers and chills patient the symptoms of fever has been going on for last couple days. Patient was having some nausea as well patient denied any increased weakness or new weakness of sensory changes. Patient is found to have Covid 19. Patient has Pseudomonas in the urine in the past because of which patient was given a dose of cefepime which will be continued during this hospital physician as well. Because of the complicated urinary tract infection, infectious disease will be consulted. Patient was comparing of lightheadedness and is bit hyponatremic and probably bit dehydrated. 11/01/2020 Patient has stage II decubitus ulcers. Patient has a Myers cath. Urology evaluated the patient patient has a spastic bladder. Urine cultures so far did not show anything patient will be continued on cefepime discussed with the infectious disease plan is to continue cefepime for a total of 3 days depending on the culture patient will be made whether to continue this antibiotic. Objective - Vital Signs Vital signs: Vital Signs Temp 98.9 F 11/01/20 14:00 Pulse 85 11/01/20 14:00 Resp 17 11/01/20 14:00 BP 97/65 11/01/20 14:00 Pulse Ox 94 L 11/01/20 14:00 Intake & Output 10/31/20 11/01/20 11/01/20 17:59 06:59 18:59 Intake Total Output Total 300 Balance -300 Weight Intake: Intake, IV Titration Amount Cefepime 2 gm In Sodium Chloride 0.9% 100 ml @ 25 mls/hr IVPB Q8H IRCARDA Rx#: [id number] Sodium Chloride 0.9% 1, 000 ml @ 100 mls/hr IV . Q10H RICARDA Rx#:[id number] Output: Urine 300 Other: Voiding Method Bedpan Diaper - Exam PHYSICAL EXAMINATION: GENERAL: The patient is alert and oriented x3, not in any acute distress. Well developed, well nourished. HEENT: Pupils are round and equally reacting to light. EOMI. No scleral icterus. No conjunctival pallor. Normocephalic, atraumatic. No pharyngeal erythema. No thyromegaly. CARDIOVASCULAR: S1 and S2 present. No murmurs, rubs, or gallops. PULMONARY: Chest is clear to auscultation, no wheezing or crackles. ABDOMEN: Soft, nontender, nondistended, normoactive bowel sounds. No palpable organomegaly. MUSCULOSKELETAL: No joint swelling or deformity. EXTREMITIES: No cyanosis, clubbing, or pedal edema. NEUROLOGICAL: No new focal deficits, well bilateral lower extremity spasticity which is chronic SKIN: Stage II sacral decubitus ulcers - Labs CBC & Chem 7: 10/30/20 18:42 10/30/20 18:42 Labs: Abnormal Lab Results - Last 24 Hours (Table) 11/01/20 11/01/20 Range/Units 06:09 06:09 D-Dimer 1.25 H (<0.60) mg/L FEU Procalcitonin 0.10 H (0.02-0.09) ng/mL Microbiology - Last 24 Hours (Table) 10/31/20 10:00 Blood Culture - Preliminary Blood No Growth after 24 hours 10/30/20 18:42 Blood Culture - Preliminary Blood No Growth after 24 hours 10/30/20 18:42 Blood Culture - Preliminary Blood No Growth after 24 hours 10/30/20 20:03 Urine Culture - Final Urine,Catheterized Assessment and Plan Plan: -sepsis most probably secondary to urinary tract infection patient has Pseudomonas urinary UTI in the past patient will be continued on cefepime , continue with Myers catheter, urology evaluated the patient patient has a spastic urinary bladder from multiple sclerosis, no evidence of hydronephrosis on the ultrasound of the kidneys. Patient has stage II sacral decubitus ulcers. Patient has Covid 19 as well. -Dizziness: Secondary to hypervolemia patient was started on IV fluids -hypovolemic hyponatremia, resolved at this time -Tachycardia secondary to fever and hypokalemia IV fluids as mentioned above -History of multiple sclerosis: Supportive care. -Gastroesophageal reflux disease Hyperlipidemia -DVT prophylaxis with Lovenox
--- NOTE | 2020-11-01 18:50 | PN ---
PROGRESS NOTE DATE OF SERVICE: 11/01/2020 REASON FOR FOLLOWUP: 1. UTI. 2. Covid infection. 3. Right posterior thigh pressure ulcer stage II. INTERVAL HISTORY: Patient is currently afebrile. The patient is feeling better. Breathing comfortably. Denies having any chest pain or shortness of breath. Minimal cough. No sputum production. No abdominal pain or diarrhea. She did have a pressure ulcer to the right posterior upper thigh with no pain, swelling, redness or any drainage. PHYSICAL EXAMINATION: Blood pressure 160/79, pulse of 90, temperature 98.1. She is 97% on room air. General description is a middle-aged female lying in bed in no distress. Respiratory system: Unlabored breathing, decreased intensity of breath sounds. No wheeze. HEART: S1, S2. Regular rate and rhythm. ABDOMEN: Soft, no tenderness. Right upper posterior thigh stage II pressure ulcer with no cellulitis. LABS: Urine culture so far negative. DIAGNOSTIC IMPRESSION/PLAN: 1. Patient with recurrent Pseudomonas urinary tract infection, could be related to her urinary retention from underlying MS. Myers catheter has been placed with culture coming back negative at this time and possible mild cystitis adequately treated. No need for antibiotic on discharge. 2. Patient with Covid infection. The patient seems to be asymptomatic from it. Chest x-ray did show some infiltrate, however, the patient is afebrile. We will consider zinc, Lovenox, multivitamin, no need for steroids. 3. Patient with right upper posterior thigh pressure ulcer, local care with zinc, skin protective cream and keep the area off the pressure. MMODL / IJN: [id number] /
[2020-11-01] MEDS ORDERED: SODIUM CHLORIDE 0.9% 500 ML 500 ML IV ONE (22:21)
[2020-11-02] MEDS: CEFEPIME 2 GM in SODIUM CHLORIDE 0.9% 100 ML IVPB SCH ×2 (04:21→11:53)
[2020-11-02] MEDS: SODIUM CHLORIDE 0.9% 1,000 ML IV SCH (05:49)
[2020-11-02] MEDS: GABAPENTIN 300 MG CAP PO SCH (07:26)
[2020-11-02] MEDS: PANTOPRAZOLE 40 MG TABLET PO SCH (07:26)
[2020-11-02] MEDS: tiZANidine 4 MG TAB PO SCH (07:27)
[2020-11-02] MEDS: TROSPIUM CHLORIDE 20 MG TABLET PO SCH (07:27)
[2020-11-02] MEDS: ENOXAPARIN 40 MG/0.4 ML SYRINGE SQ SCH (07:28)
[2020-11-02 10:19] VITALS: BP 83/54; PULSE 75; RESP 19; TEMP 98.6
[2020-11-02 11:10] LABS: African American GFR (CKD) 137.8 (60.0-200.0); Anion Gap 2.1 mmol/L (4.00-12.00); BUN/Creat Ratio 12.5 Ratio (12.00-20.00); Calcium 8.6 mg/dL (8.7-10.3); Carbon Dioxide 29.9 mmol/L (21.6-31.8); Non-African American GFR(CKD) 118.9 (60.0-200.0); Potassium 3.6 mmol/L (3.5-5.5)
--- NOTE | 2020-11-02 13:43 | P.DS ---
Providers Date of admission: 10/30/20 18:01 Expected date of discharge: 11/02/20 Attending physician: Carol Mckinney Consults: 10/30/20 18:00 Consult Physician Routine Consulting Provider: Jessy Bacon Consult Reason/Comments: recurrent UTIs, requiring IV agents Do you want consulting provider notified?: Yes, Notify in am 11/01/20 10:30 Consult Physician Routine Consulting Provider: Brendan Sánchez Consult Reason/Comments: Retention Do you want consulting provider notified?: Yes Primary care physician: Myranda Pascual Hospital Course: Final diagnosis -sepsis most probably secondary to urinary tract infection patient has Pseudomonas urinary UTI in the past -spastic urinary bladder from multiple sclerosis, no evidence of hydronephrosis on the ultrasound of the kidneys -Patient has stage II sacral decubitus ulcers. -Covid 19 -Dizziness: Secondary to hypervolemia, improved -hypovolemic hyponatremia, resolved at this time -Tachycardia secondary to fever and hypokalemia, improved -History of multiple sclerosis: Supportive care. -Gastroesophageal reflux disease -Hyperlipidemia -DVT prophylaxis Discharge disposition Patient is being discharged in a stable condition with guarded prognosis to home. Patient will follow-up with Dr. Pascual in the outpatient setting upon discharge. Patient is to continue with indwelling Myers catheter and follow-up with urology outpatient. Patient also instructed to follow-up with neurology in the outpatient setting. She will continue with home care as needed. Total time taken is greater than 35 minutes. Hospital course 55-year-old pleasant female came in for possibility of urinary tract infection patient history is vague she says she always has UTI symptoms including dysuria. Patient urine is fairly abnormal with highly elevated white blood cell count and RBCs. Patient does have history of seconded progressive multiple sclerosis. She does have fevers and chills patient the symptoms of fever has been going on for last couple days. Patient was having some nausea as well patient denied any increased weakness or new weakness of sensory changes. Patient is found to have Covid 19. Patient has Pseudomonas in the urine in the past because of which patient was given a dose of cefepime which will be continued during this hospital physician as well. Because of the complicated urinary tract infection, infectious disease will be consulted. Patient was comparing of lightheadedness and is bit hyponatremic and probably bit dehydrated. 11/01/2020 Patient has stage II decubitus ulcers. Patient has a Myers cath. Urology evaluated the patient patient has a spastic bladder. Urine cultures so far did not show anything patient will be continued on cefepime discussed with the infectious disease plan is to continue cefepime for a total of 3 days depending on the culture patient will be made whether to continue this antibiotic. 11/02/2020 Patient is seen and evaluated in follow-up with no acute overnight issues. Patient was seen and evaluated by urology recommending outpatient follow-up and continued indwelling Myers catheter. Patient will not require antibiotics on discharge and infectious disease was following. Patient also instructed to continue with local wound care and will have home care in the outpatient setting. Patient was also found to have Covid 19. Patient instructed to continue to isolate for an additional 7 days along with wearing a mask, social distancing, and frequent handwashing. Patient also instructed to continue monitor for fevers or worsening shortness of breath. Currently no reports of chest pain, shortness of breath, or palpitations. Patient is afebrile. No reports of nausea or vomiting and patient is tolerating diet. Patient will be discharged home today. On exam vital signs are stable. Cardio S1, S2 are muffled. Respiratory system shows diminished breath sounds at the bases with no wheezing or rhonchi noted. Abdomen is soft and and nontender. Nervous system shows diffuse weakness. Please refer to medication reconciliation sheet for a list of medications. Patient Condition at Discharge: Stable Plan - Discharge Summary New Discharge Prescriptions: Continue tiZANidine HCL [Zanaflex] 8 mg PO BID Gabapentin [Neurontin] 600 mg PO BID Omeprazole [PriLOSEC] 20 mg PO DAILY Gabapentin 600 mg PO DAILY PRN PRN Reason: Pain Solifenacin Succinate [Vesicare] 10 mg PO HS Discontinued Levofloxacin [Levaquin] 750 mg PO DAILY 10 Days #10 tab Discharge Medication List Gabapentin [Neurontin] 600 mg PO BID 03/16/17 [History] tiZANidine HCL [Zanaflex] 8 mg PO BID 03/16/17 [History] Gabapentin 600 mg PO DAILY PRN 10/23/20 [History] Omeprazole [PriLOSEC] 20 mg PO DAILY 10/23/20 [History] Solifenacin Succinate [Vesicare] 10 mg PO HS 10/23/20 [History] Follow up Appointment(s)/Referral(s): [facility] , [REFERRING] - As Needed Myranda Pascual MD [Primary Care Provider] - 11/03/20 1:40 pm (TeleHealth. Please call office to set up for the telehealth) Patient Instructions/Handouts: Coronavirus Disease 2019 (COVID-19), Myers Catheter Placement and Care (DC) Activity/Diet/Wound Care/Special Instructions: Activity Limited until follow-up follow up with primary care provider upon discharge Follow-up with urology outpatient Follow-up Neurology outpatient Continue with home care and local wound care Discharge Disposition: HOME WITH HOME HEALTH SERVICES
--- NOTE | 2020-11-02 14:10 | PN ---
PROGRESS NOTE DATE OF SERVICE: 11/02/2020 REASON FOR FOLLOWUP: 1. Recurrent Pseudomonas urinary tract infection. 2. COVID-19. 3. Left posterior thigh stage II pressure ulcer. INTERVAL HISTORY: The patient is currently afebrile. Patient is breathing comfortably. Patient denies having any chest pain. Occasional cough. No nausea, no vomiting. No abdominal pain or diarrhea. PHYSICAL EXAMINATION: Blood pressure 108/69, pulse of 80, temperature 98.4. She is 95% on room air. General description is a middle-aged female lying in bed in no distress. RESPIRATORY SYSTEM: Unlabored breathing, clear to auscultation anteriorly. HEART: S1, S2. Regular rate and rhythm. ABDOMEN: Soft, no tenderness. LABS: BUN of 5 creatinine 0.4. Urine is negative. Blood culture negative. DIAGNOSTIC IMPRESSION AND PLAN: 1. Patient admitted to hospital with concern for a recurrent Pseudomonas urinary tract infection. However, urine culture has been negative so far. Some of her symptoms could be related to urinary retention from her multiple sclerosis and Myers catheter has been placed with the culture negative. No need for antibiotic on discharge. 2. Patient with COVID-19 infection, however, the patient is currently not hypoxic, though she has risk of thrombotic complication because of bedridden status and may benefit from a short course of anticoagulation, had discussion with family member. 3. Stage II pressure ulcer to the posterior upper thigh area. Local care with dry Aquacel Silver dressing, keep the area off the pressure. MMODL / IJN: [id number] /
== END 2020-11-02 14:50 | disposition home health service (06) | DRG 871 ==
LOC: EC 17:29 → 5NMEDONC 18:01 → 4SSUR 19:24
PROVIDERS: ADMIT Hospitalist; ATTEND Hospitalist
DX: A41.9 Sepsis, unspecified organism (principal); U07.1 COVID-19; N39.0 Urinary tract infection, site not specified; E87.1 Hypo-osmolality and hyponatremia; Z16.30 Resistance to unspecified antimicrobial drugs; N32.89 Other specified disorders of bladder; L89.152 Pressure ulcer of sacral region, stage 2; E78.5 Hyperlipidemia, unspecified; E86.0 Dehydration; E86.1 Hypovolemia; E87.6 Hypokalemia; G35 Multiple sclerosis; K21.9 Gastro-esophageal reflux disease without esophagitis; N39.41 Urge incontinence; Z74.01 Bed confinement status; Z79.899 Other long term (current) drug therapy; Z87.440 Personal history of urinary (tract) infections; E66.9 Obesity, unspecified; Z68.31 Body mass index [BMI] 31.0-31.9, adult
CPT/HCPCS: 36415; 71045; 76770; 80048; 80053; 81001; 83605; 83615; 84145; 85025; 85379; 87040; 87086; 87635; 96365; 99284

== ENCOUNTER 2021-04-18 18:54 | Inpatient (IN) | payer MEDICARE ==
[2021-04-18] MEDS ORDERED: ACETAMINOPHEN TAB 500 MG TAB PO STA (19:19)
--- NOTE | 2021-04-18 19:22 | ED ---
General Adult HPI - General Chief complaint: Fever Stated complaint: MS Exacerbation,UTI Time Seen by Provider: 04/18/21 19:05 Source: patient, EMS, RN notes reviewed Mode of arrival: EMS Limitations: no limitations - History of Present Illness Initial comments: Patient is a pleasant 55-year-old female presenting to the emergency department with fever and increased weakness. Patient has secondary progressive MS. Patient is not ambulatory. Patient recently was diagnosed with urinary tract infection. Patient was started on Macrobid around 5 days ago. Patient has fevers and general weakness increasing. No upper respiratory symptoms. No abdominal pain. - Related Data Home Medications Medication Instructions Recorded Confirmed Gabapentin [Neurontin] 600 mg PO BID 03/16/17 04/18/21 tiZANidine HCL [Zanaflex] 8 mg PO HS 03/16/17 04/18/21 Omeprazole [PriLOSEC] 20 mg PO DAILY 10/23/20 04/18/21 Solifenacin Succinate [Vesicare] 10 mg PO HS 10/23/20 04/18/21 Cholecalciferol [Vitamin D3 (25 25 mcg PO DAILY 04/18/21 04/18/21 Mcg = 1000 Iu)] Furosemide [Lasix] 20 mg PO DAILY 04/18/21 04/18/21 Multivitamins, Thera [Multivitamin 1 tab PO DAILY 04/18/21 04/18/21 (formulary)] Nitrofurantoin Monohyd/M-Cryst 100 mg PO Q12HR 04/18/21 04/18/21 [Macrobid] Ocrevus 1 dose IV Q182D 04/18/21 04/18/21 tiZANidine HCL 4 mg PO DAILY 04/18/21 04/18/21 traMADol HCL [Ultram] 50 mg PO BID 04/18/21 04/18/21 Allergies Allergy/AdvReac Type Severity Reaction Status Date / Time No Known Allergies Allergy Verified 04/18/21 20:13 Review of Systems ROS Statement: Those systems with pertinent positive or pertinent negative responses have been documented in the HPI. ROS Other: All systems not noted in ROS Statement are negative. Constitutional: Denies: fever Eyes: Denies: eye pain ENT: Denies: ear pain Respiratory: Denies: cough, dyspnea Cardiovascular: Denies: chest pain Endocrine: Denies: fatigue Gastrointestinal: Denies: abdominal pain Genitourinary: Reports: as per HPI (patient uses a Myers catheter) Musculoskeletal: Denies: back pain Skin: Denies: rash Neurological: Denies: weakness Past Medical History Additional Past Medical History / Comment(s): Multiple sclerosis, spastic colon, left leg edema, right buttocks decub History of Any Multi-Drug Resistant Organisms: None Reported Past Surgical History: No Surgical Hx Reported Additional Past Surgical History / Comment(s): MS Past Anesthesia/Blood Transfusion Reactions: No Reported Reaction Past Psychological History: No Psychological Hx Reported Smoking Status: Never smoker Past Alcohol Use History: None Reported Past Drug Use History: None Reported General Exam Limitations: no limitations General appearance: alert, in no apparent distress Head exam: Present: normocephalic Eye exam: Present: normal appearance ENT exam: Present: normal oropharynx Neck exam: Present: normal inspection Respiratory exam: Present: normal lung sounds bilaterally Cardiovascular Exam: Present: normal rhythm, tachycardia GI/Abdominal exam: Present: soft. Absent: distended, tenderness Extremities exam: Present: normal inspection Neurological exam: Present: alert Psychiatric exam: Present: normal affect, normal mood Skin exam: Present: normal color Course Vital Signs 04/18/21 19:00 Temperature 102.7 F H Pulse Rate 127 H Respiratory 18 Rate Blood Pressure 111/68 O2 Sat by Pulse 94 L Oximetry - Reevaluation(s) Reevaluation #1: 04/18/21 20:24 Patient meet sepsis criteria diagnosed at 2014. Blood culture and lactic acid ordered. IV antibiotics will be ordered. EKG Findings - EKG Comments: EKG Findings:: Sinus tachycardia 123. WI 136. QRS 86. QT 306. QTc 438. Left axis. Low QRS voltage. Nonspecific T waves. Medical Decision Making - Medical Decision Making Reevaluated and updated Case discussed with Dr. Mckinney, covering for Dr. Pascual, who will admit. - Lab Data Result diagrams: 04/18/21 19:40 04/18/21 19:40 Lab Results 04/18/21 04/18/21 04/18/21 Range/Units 19:40 19:40 19:40 WBC 14.8 H (3.8-10.6) k/uL RBC 4.84 (3.80-5.40) m/uL Hgb 15.2 (11.4-16.0) gm/dL Hct 44.6 (34.0-46.0) % MCV 92.1 (80.0-100.0) fL MCH 31.4 (25.0-35.0) pg MCHC 34.0 (31.0-37.0) g/dL RDW 14.4 (11.5-15.5) % Plt Count 248 (150-450) k/uL MPV 7.1 Neutrophils % 90 % Lymphocytes % 4 % Monocytes % 4 % Eosinophils % 0 % Basophils % 0 % Neutrophils # 13.3 H (1.3-7.7) k/uL Lymphocytes # 0.6 L (1.0-4.8) k/uL Monocytes # 0.6 (0-1.0) k/uL Eosinophils # 0.0 (0-0.7) k/uL Basophils # 0.1 (0-0.2) k/uL Sodium 138 (137-145) mmol/L Potassium 3.7 (3.5-5.1) mmol/L Chloride 100 (98-107) mmol/L Carbon Dioxide 26 (22-30) mmol/L Anion Gap 12 mmol/L BUN 13 (7-17) mg/dL Creatinine 0.77 (0.52-1.04) mg/dL Est GFR (CKD-EPI)AfAm >90 (>60 ml/min/1.73 sqM) Est GFR (CKD-EPI)NonAf 88 (>60 ml/min/1.73 sqM) Glucose 97 (74-99) mg/dL Plasma Lactic Acid Gavino (0.7-2.0) mmol/L Calcium 9.8 (8.4-10.2) mg/dL Total Bilirubin 0.7 (0.2-1.3) mg/dL AST 22 (14-36) U/L ALT 14 (4-34) U/L Alkaline Phosphatase 108 (38-126) U/L Creatine Kinase 21 L (30-135) U/L Total Protein 6.8 (6.3-8.2) g/dL Albumin 4.2 (3.5-5.0) g/dL Urine Color Yellow Urine Appearance Turbid H (Clear) Urine pH 7.5 (5.0-8.0) Ur Specific [place] 1.017 (1.001-1.035) Urine Protein 1+ H (Negative) Urine Glucose (UA) Negative (Negative) Urine Ketones 2+ H (Negative) Urine Blood Small H (Negative) Urine Nitrite Negative (Negative) Urine Bilirubin Negative (Negative) Urine Urobilinogen <2.0 (<2.0) mg/dL Ur Leukocyte Esterase Large H (Negative) Urine RBC 29 H (0-5) /hpf Urine WBC >182 H (0-5) /hpf Urine WBC Clumps Many H (None) /hpf Urine Bacteria Moderate H (None) /hpf Urine Mucus Rare H (None) /hpf 04/18/21 Range/Units 19:40 WBC (3.8-10.6) k/uL RBC (3.80-5.40) m/uL Hgb (11.4-16.0) gm/dL Hct (34.0-46.0) % MCV (80.0-100.0) fL MCH (25.0-35.0) pg MCHC (31.0-37.0) g/dL RDW (11.5-15.5) % Plt Count (150-450) k/uL MPV Neutrophils % % Lymphocytes % % Monocytes % % Eosinophils % % Basophils % % Neutrophils # (1.3-7.7) k/uL Lymphocytes # (1.0-4.8) k/uL Monocytes # (0-1.0) k/uL Eosinophils # (0-0.7) k/uL Basophils # (0-0.2) k/uL Sodium (137-145) mmol/L Potassium (3.5-5.1) mmol/L Chloride (98-107) mmol/L Carbon Dioxide (22-30) mmol/L Anion Gap mmol/L BUN (7-17) mg/dL Creatinine (0.52-1.04) mg/dL Est GFR (CKD-EPI)AfAm (>60 ml/min/1.73 sqM) Est GFR (CKD-EPI)NonAf (>60 ml/min/1.73 sqM) Glucose (74-99) mg/dL Plasma Lactic Acid Gavino 1.0 (0.7-2.0) mmol/L Calcium (8.4-10.2) mg/dL Total Bilirubin (0.2-1.3) mg/dL AST (14-36) U/L ALT (4-34) U/L Alkaline Phosphatase (38-126) U/L Creatine Kinase (30-135) U/L Total Protein (6.3-8.2) g/dL Albumin (3.5-5.0) g/dL Urine Color Urine Appearance (Clear) Urine pH (5.0-8.0) Ur Specific [place] (1.001-1.035) Urine Protein (Negative) Urine Glucose (UA) (Negative) Urine Ketones (Negative) Urine Blood (Negative) Urine Nitrite (Negative) Urine Bilirubin (Negative) Urine Urobilinogen (<2.0) mg/dL Ur Leukocyte Esterase (Negative) Urine RBC (0-5) /hpf Urine WBC (0-5) /hpf Urine WBC Clumps (None) /hpf Urine Bacteria (None) /hpf Urine Mucus (None) /hpf Critical Care Time Critical Care Time: Yes Total Critical Care Time: 31 Disposition Clinical Impression: UTI (urinary tract infection), Sepsis Disposition: ADMITTED IP TO THIS HOSP Is patient prescribed a controlled substance at d/c from ED?: No Referrals: Myranda Pascual MD [Primary Care Provider] - 1-2 days Decision Time: 20:24
--- NOTE | 2021-04-18 19:46 | XR ---
EXAMINATION TYPE: XR chest 1V portable DATE OF EXAM: 04/18/2021 COMPARISON: 11/01/2020 HISTORY: Fever TECHNIQUE: Single view FINDINGS: Heart and mediastinum are normal. Lungs are clear. Diaphragm is normal. There are chest bienvenido ds. The bony thorax is intact. IMPRESSION: Normal chest. There is complete clearing of the bilateral lower lobe pneumonia compared t o old exam.
[2021-04-18] MEDS: SODIUM CHLORIDE 0.9% 1,000 ML IV SCH (19:54)
[2021-04-18 20:04] LABS: Basophils # (A) 0.1 k/uL (0-0.2); Basophils % (A) 0 %; Eosinophils % (A) 0 %; HCT 44.6 % (34.0-46.0); HGB 15.2 gm/dL (11.4-16.0); Lymphocytes # (A) 0.6 k/uL (1.0-4.8); Lymphocytes % (A) 4 %; MCH 31.4 pg (25.0-35.0); MCV 92.1 fL (80.0-100.0); Mean Platelet Volume 7.1; Monocytes # (A) 0.6 k/uL (0-1.0); Monocytes % (A) 4 %; Neutrophils # (A) 13.3 k/uL (1.3-7.7); Neutrophils % (A) 90 %; Platelet Count 248 k/uL (150-450); RBC 4.84 m/uL (3.80-5.40); RDW 14.4 % (11.5-15.5); WBC 14.8 k/uL (3.8-10.6)
[2021-04-18 20:15] LABS: Appearance,Urine Turbid (Clear); Bacteria,Urine Moderate /hpf; Bilirubin,Urine Negative (Negative); Blood,Urine Small (Negative); Color,Urine Yellow; Glucose,Urine (UA) Negative (Negative); Ketones,Urine 2+ (Negative); Leukocyte Esterase,Urine Large (Negative); Mucus,Urine Rare /hpf; Nitrite,Urine Negative (Negative); PH, Urine 7.5 (5.0-8.0); Protein,Urine 1+ (Negative); RBC,Urine 29 /hpf (0-5); Specific Gravity,Urine 1.017 (1.001-1.035); Urobilinogen,Urine <2.0 mg/dL (<2.0); WBC,Urine >182 /hpf (0-5)
[2021-04-18 20:17] LABS: ALT 14 U/L (4-34); AST 22 U/L (14-36); African American GFR (CKD) >90 (>60 ml/min/1.73 sqM); Albumin 4.2 g/dL (3.5-5.0); Alkaline Phosphatase 108 U/L (38-126); Anion Gap 12 mmol/L; Blood Urea Nitrogen 13 mg/dL (7-17); Calcium 9.8 mg/dL (8.4-10.2); Carbon Dioxide 26 mmol/L (22-30); Chloride 100 mmol/L (98-107); Creatine Kinase 21 U/L (30-135); Glucose 97 mg/dL (74-99); Non-African American GFR(CKD) 88 (>60 ml/min/1.73 sqM); Potassium 3.7 mmol/L (3.5-5.1); Sodium 138 mmol/L (137-145); Total Bilirubin 0.7 mg/dL (0.2-1.3); Total Protein 6.8 g/dL (6.3-8.2)
[2021-04-18] MEDS ORDERED: cefTRIAXone IN SWFI 1,000 MG/10 ML SYRINGE IVP STA (20:25)
[2021-04-18] MEDS ORDERED: NALOXONE 0.4 MG/ML 1 ML VIAL IV PRN (20:25)
[2021-04-18 20:31] LABS: Partial Thromboplastin Time 26.1 sec (22.0-30.0); Prothrombin Time 10.8 sec (9.0-12.0)
[2021-04-18] MEDS ORDERED: SODIUM CHLORIDE 0.9% 500 ML 500 ML IV STA (20:46)
[2021-04-18] MEDS: IBUPROFEN 400 MG TAB PO PRN (20:49)
--- NOTE | 2021-04-18 21:52 | HP ---
HISTORY AND PHYSICAL DATE OF SERVICE: 04/18/2021 CHIEF COMPLAINTS: Fever and UTI. HISTORY OF PRESENT ILLNESS: This 55-year-old woman with a past medical history of multiple medical problems, including multiple sclerosis, spastic colon, history of left leg edema, history of right buttock decubitus, being followed by Dr. Pascual in the outpatient setting, was also seeing Dr. Mejia for multiple sclerosis. The patient is currently having fever, rigor, chills, and the patient was being treated with outpatient Macrobid for about 5 days. Because of lack of improvement in the symptoms and increasing weakness, the patient came to [facility] and was admitted for further evaluation and treatment. There is no history of any headache, loss of consciousness, seizures. UA showed significant UTI. Covid-19 is negative. PAST MEDICAL HISTORY: History of multiple sclerosis, spastic colon, left leg edema, right buttock decubitus. HOME MEDICATIONS: Zanaflex, Vesicare, Ultram, multivitamins, vitamin D3, tizanidine, Prilosec, Macrobid, Neurontin, Lasix. ALLERGIES: NONE. FAMILY HISTORY: No history of heart disease or strokes. SOCIAL HISTORY: No history of smoking. No history of alcohol intake. REVIEW OF SYSTEMS: ENT: No diminished hearing. No diminished vision. CARDIOVASCULAR SYSTEM: No angina, palpitations. RESPIRATORY SYSTEM: No cough, hemoptysis. GI: As mentioned earlier. : As mentioned earlier. NERVOUS SYSTEM: As mentioned earlier. ALLERGY/IMMUNOLOGY: No asthma or hay fever. MUSCULOSKELETAL: As mentioned earlier. HEMATOLOGY/ONCOLOGY: No history of anemia. ENDOCRINE: No history of diabetes, hypothyroidism. CONSTITUTIONAL: As mentioned earlier. DERMATOLOGY: Negative. RHEUMATOLOGY: Negative. PSYCHIATRY: As mentioned earlier. PHYSICAL EXAMINATION: Patient alert and oriented x3. Pulse is 127, blood pressure 111/68, respiration 18, temperature 100.2, pulse ox 94% on room air. HEENT: Conjunctivae normal. Oral mucosa moist. NECK: No jugular venous distention. No carotid bruit. No lymph node enlargement. CARDIOVASCULAR: S1, S2 muffled. RESPIRATION: Breath sounds diminished at the bases. A few scattered rhonchi. ABDOMEN: Soft, nontender. No mass palpable. LEGS: No edema. No swelling. NERVOUS SYSTEM: Higher functions as mentioned earlier. Moves all 4 limbs. Mild diffuse weakness and wasting and contractures also present. SKIN: No ulcer, rash, bleeding. JOINTS: No active deforming arthropathy. LABS: WBC 14.8, hemoglobin 15.8. UA noted. ASSESSMENT: 1. Acute urinary tract infection with sepsis with failure of outpatient treatment. 2. Increased white count. 3. History of multiple sclerosis. 4. History of spastic colon. 5. History of left leg edema. 6. History of right buttock decubitus. 7. FULL CODE. RECOMMENDATIONS AND DISCUSSION: In this 55-year-old woman who presented with multiple complex medical issues, we will monitor the patient closely, continue the current medications, continue symptomatic treatment. Broad-spectrum IV antibiotics. Cultures. Otherwise, continue to monitor. PT/OT evaluation. Repeat labs. Prognosis guarded because of multiple complex medical problems. Further recommendations to follow. A copy of this dictation is being forwarded to Dr. Pascual, who is the primary physician. MMODL / KERAN: [id number] /
[2021-04-18] MEDS: ACETAMINOPHEN TAB 325 MG TAB PO PRN (22:15)
[2021-04-18] MEDS: tiZANidine 4 MG TAB PO SCH (22:15)
[2021-04-18] MEDS: GABAPENTIN 300 MG CAP PO SCH (22:15)
[2021-04-18] MEDS: traMADol 50 MG TAB PO SCH (22:16)
[2021-04-18] MEDS: TROSPIUM CHLORIDE 20 MG TABLET PO SCH (22:16)
[2021-04-19] MEDS: IBUPROFEN 400 MG TAB PO PRN ×2 (02:02→18:39)
[2021-04-19] MEDS: ACETAMINOPHEN TAB 325 MG TAB PO PRN ×2 (04:44→21:09)
[2021-04-19] MEDS: SODIUM CHLORIDE 0.9% 1,000 ML IV SCH ×3 (04:51→18:55)
--- NOTE | 2021-04-19 07:59 | P.EN ---
I responded to a rapid response called by nursing staff secondary to hypotension. On arrival to the room, patient was awake and alert. Blood pressure was 74/45. Patient was afebrile and heart rate was 89. Nursing staff informed me that patient received 500 mL IV bolus in the ER. Upon chart review, patient is a 55-year-old female admitted to the hospital with sepsis secondary to catheter associated UTI. Patient herself reports feeling fairly well. I ordered a stat lactic acid. Ordered 1.5 L of normal saline as a bolus. After 400 mL of fluid infusion recheck blood pressure was 82/54. Advised to finish IV bolus as directed. Awaiting lactic acid. Notify attending provider. If blood pressure not improving consider transfer to the ICU. Patient is maintained on ceftriaxone 1 g twice a day.
[2021-04-19] MEDS: traMADol 50 MG TAB PO SCH ×3 (08:01→21:07)
[2021-04-19] MEDS: GABAPENTIN 300 MG CAP PO SCH ×2 (08:02→21:06)
[2021-04-19] MEDS: FUROSEMIDE 20 MG TAB PO SCH (08:02)
[2021-04-19] MEDS: tiZANidine 4 MG TAB PO SCH ×2 (08:05→22:24)
[2021-04-19] MEDS: TROSPIUM CHLORIDE 20 MG TABLET PO SCH ×3 (08:05→22:23)
[2021-04-19 08:09] LABS: Basophils % (A) 0 %; Eosinophils % (A) 0 %; HCT 31.7 % (34.0-46.0); Lymphocytes # (A) 0.9 k/uL (1.0-4.8); Lymphocytes % (A) 10 %; MCH 31.6 pg (25.0-35.0); MCHC 34.3 g/dL (31.0-37.0); MCV 92.1 fL (80.0-100.0); Mean Platelet Volume 7.1; Monocytes # (A) 0.4 k/uL (0-1.0); Monocytes % (A) 5 %; Neutrophils # (A) 7.8 k/uL (1.3-7.7); Neutrophils % (A) 84 %; Platelet Count 185 k/uL (150-450); RBC 3.44 m/uL (3.80-5.40); RDW 14.4 % (11.5-15.5); WBC 9.3 k/uL (3.8-10.6)
[2021-04-19 08:10] LABS: HGB 10.9 gm/dL (11.4-16.0)
[2021-04-19] MEDS ORDERED: PIPERACILLIN-TAZOBACTAM 3.375 GM in SODIUM CHLORIDE 0.9% 100 ML IVPB SCH (08:15)
[2021-04-19] MEDS: MULTIVITAMINS, THERA 1 EACH TAB PO SCH (08:20)
[2021-04-19] MEDS ORDERED: NON FORMULARY DRUG (Omeprazole 20 MG Capsule.Dr) PO SCH (09:00)
[2021-04-19] MEDS ORDERED: PANTOPRAZOLE 40 MG/10 ML VIAL IV SCH (09:00)
[2021-04-19] MEDS ORDERED: SODIUM CHLORIDE 0.9% 1,000 ML IV ONE ×2 (10:17→10:34)
[2021-04-19 10:30] LABS: Glucose,Whole Blood 173 mg/dL (75-99)
[2021-04-19] MEDS: CHOLECALCIFEROL 25 MCG (1000 IU) TABLET PO SCH (11:50)
--- NOTE | 2021-04-19 13:19 | P.CNPUL ---
History of Present Illness Consult date: 04/12/21 Requesting physician: Myranda Pascual Reason for consult: other Chief complaint: Hypotension, sepsis, urinary tract infection. History of present illness: Pulmonary consult dated 04/19/2021. 55-year-old female with a history of progressive multiple sclerosis, and indwelling Myers catheter. The patient presented to the emergency department on April 18, complaining of fever, weakness, and possible recurrent urinary tract infection. The patient was recently started on Macrobid, about 5 days prior to admission. Unfortunately, the patient got progressively weaker, with fevers, and came into the emergency room where she was admitted with a diagnosis of probable urinary tract infection/we were called to see her today because she became hypotensive. She received 1/2 L of fluid on the floor. She is currently on antibiotics. Despite that, she was still hypotensive, and we decided to transfer her to the intensive care unit. Reactive examine her and spoke to her on the floor. White count was 9.3, hemoglobin 10.9, hematocrit 31.7, and platelet count 185,000. Sodium 138, potassium 3.7, chlorides 100, CO2 26, anion gap 12, BUN 13, and creatinine 0.77. Urine from yesterday was yellow and turbid. It was 1+ protein 2+ ketones and small amount of blood. Leukocyte esterase was large positive. There are 29 RBCs, greater than then 182 WBCs, with a white blood cell clumps, and moderate bacteria. Coronavirus testing was negative. Currently, the patient is on Fortaz, because her previous pathogens were sensitive to this antibiotic. She is in no distress. Review of Systems REVIEW OF SYSTEMS: CONSTITUTIONAL: Fever and weakness. NEUROLOGIC: [ Negative.] HEENT: [ Negative.] CARDIAC: Hypotension. PULMONARY: [Negative.] GI: [Negative.] : Suspected recurrent urinary tract infection. RHEUMATOLOGIC: [ Negative.] IMMUNOLOGIC: [ Negative.] ENDOCRINE: [Negative. ] DERMATOLOGIC: [Negative.] Past Medical History Additional Past Medical History / Comment(s): Multiple sclerosis, spastic colon, left leg edema, right buttocks decub History of Any Multi-Drug Resistant Organisms: None Reported Past Surgical History: No Surgical Hx Reported Additional Past Surgical History / Comment(s): MS Past Anesthesia/Blood Transfusion Reactions: No Reported Reaction Past Psychological History: No Psychological Hx Reported Smoking Status: Never smoker Past Alcohol Use History: None Reported Past Drug Use History: None Reported - Past Family History Mother Additional Family Medical History / Comment(s): Brain tumor Father Family Medical History: CVA/TIA Additional Family Medical History / Comment(s): from stroke Medications and Allergies Home Medications Medication Instructions Recorded Confirmed Type Gabapentin [Neurontin] 600 mg PO BID 03/16/17 04/18/21 History tiZANidine HCL [Zanaflex] 8 mg PO HS 03/16/17 04/18/21 History Omeprazole [PriLOSEC] 20 mg PO DAILY 10/23/20 04/18/21 History Solifenacin Succinate [Vesicare] 10 mg PO HS 10/23/20 04/18/21 History Cholecalciferol [Vitamin D3 (25 25 mcg PO DAILY 04/18/21 04/18/21 History Mcg = 1000 Iu)] Furosemide [Lasix] 20 mg PO DAILY 04/18/21 04/18/21 History Multivitamins, Thera [Multivitamin 1 tab PO DAILY 04/18/21 04/18/21 History (formulary)] Nitrofurantoin Monohyd/M-Cryst 100 mg PO Q12HR 04/18/21 04/18/21 History [Macrobid] Ocrevus 1 dose IV Q182D 04/18/21 04/18/21 History tiZANidine HCL 4 mg PO DAILY 04/18/21 04/18/21 History traMADol HCL [Ultram] 50 mg PO BID 04/18/21 04/18/21 History Allergies Allergy/AdvReac Type Severity Reaction Status Date / Time No Known Allergies Allergy Verified 04/18/21 20:13 Physical Exam Osteopathic Statement: *. No significant issues noted on an osteopathic structural exam other than those noted in the History and Physical/Consult. Vitals: Vital Signs Temp Pulse Pulse Resp BP BP Pulse Ox 04/19/21 13:00 81 12 97/70 94 L 04/19/21 12:45 82 13 98/62 94 L 04/19/21 12:30 80 11 L 95/60 94 L 04/19/21 12:15 98 F 80 15 99/59 95 04/19/21 12:00 79 16 98/67 93 L 04/19/21 11:45 76 17 92/57 96 04/19/21 11:30 78 16 93/57 96 04/19/21 11:15 77 18 88/61 94 L 04/19/21 11:00 19 86/49 96 04/19/21 10:45 81 18 84/46 95 04/19/21 10:30 10 L 85/49 94 L 04/19/21 10:26 94 L 04/19/21 07:17 98.5 F 04/19/21 07:16 62/40 04/19/21 07:00 98.4 F 73 18 97 04/19/21 01:35 100.1 F H 112 H 19 115/68 99 04/18/21 21:55 99.5 F 122 H 18 122/77 96 04/18/21 21:38 18 04/18/21 20:44 102.2 F H 130 H 18 114/73 95 04/18/21 19:00 102.7 F H 127 H 18 111/68 94 L Intake and Output 04/18/21 04/19/21 04/19/21 22:59 06:59 14:59 Intake Total 200 Output Total 580 110 Balance -580 90 Intake: Oral 200 Output: Urine 580 110 Other: Voiding Method Indwelling Catheter Indwelling Catheter # Bowel Movements 0 Weight 70.624 kg No acute distress, oriented 3. Room air saturations are mid 90s. No respiratory distress. HEENT examination is grossly unremarkable. Neck supple. Full range of motion. No adenopathy thyromegaly or neck vein distention. Cardiovascular examination reveals regular rhythm rate. S1-S2 normal. No S3 or S4. No discernible murmur noted. Heart rate 82 bpm. Lungs reveal clear breath sounds. Breath sounds are equal bilaterally. No adventitious lung sounds including wheezes rhonchi or crackles. Abdomen soft with bowel sounds. Mild suprapubic tenderness is appreciated. Extremities are intact. No cyanosis clubbing or edema. Skin is without rash or lesion. Neurologic examination is brief but nonfocal. Results - Laboratory Findings CBC and BMP: 04/19/21 07:53 04/18/21 19:40 PT/INR, D-dimer PT 10.8 sec (9.0-12.0) 04/18/21 19:40 INR 1.0 (<1.2) 04/18/21 19:40 Abnormal lab findings: Abnormal Labs 0804/18/21 04/18/21 19:40 19:40 19:40 WBC 14.8 H RBC Hgb Hct Neutrophils # 13.3 H Lymphocytes # 0.6 L POC Glucose (mg/dL) Plasma Lactic Acid Gavino Creatine Kinase 21 L Urine Appearance Turbid H Urine Protein 1+ H Urine Ketones 2+ H Urine Blood Small H Ur Leukocyte Esterase Large H Urine RBC 29 H Urine WBC >182 H Urine WBC Clumps Many H Urine Bacteria Moderate H Urine Mucus Rare H 04/19/21 04/19/21 04/19/21 07:43 07:53 10:28 WBC RBC 3.44 L Hgb 10.9 L D Hct 31.7 L Neutrophils # 7.8 H Lymphocytes # 0.9 L POC Glucose (mg/dL) 173 H Plasma Lactic Acid Gavino 0.6 L Creatine Kinase Urine Appearance Urine Protein Urine Ketones Urine Blood Ur Leukocyte Esterase Urine RBC Urine WBC Urine WBC Clumps Urine Bacteria Urine Mucus - Diagnostic Findings Chest x-ray: image reviewed Assessment and Plan Assessment: Acute urinary tract infection, with possible bacteremia and septic shock. History of recurrent urinary tract infections, most recently secondary to pseudomonas aeruginosa and Escherichia coli. History of progressive multiple sclerosis. History of spastic colon. History of right buttock decubitus ulcer. Lifelong nontobacco user. Plan: Plan dated 04/19/2021. Because of her ongoing hypotension, despite 2-1/2 L of fluids, the patient be transferred to the intensive care unit. Also, because her previous urinary tract infection was caused by Pseudomonas aeruginosa and Escherichia coli, her antibiotic is switched to ceftazidime. We will continue to give her fluids. She seems relatively stable. We will check a TSH level and a random cortisol level. Additional recommendations and suggestions are forthcoming. Also, her that urine and blood cultures have been sent. Time with Patient: Greater than 30
[2021-04-19] MEDS ORDERED: HYDROcodone/APAP 5-325MG 1 EACH TAB PO PRN (14:16)
[2021-04-19] MEDS ORDERED: ALPRAZolam 0.25 MG TAB PO PRN (14:16)
[2021-04-19 14:26] LABS: Basophils # (A) 0.03 X 10*3/uL (0.00-0.10); Basophils % (A) 0.3 %; Eosinophils # (A) 0 X 10*3/uL (0.04-0.35); Eosinophils % (A) 0 %; HGB 11.1 g/dL (12.0-15.0); Lymphocytes # (A) 0.81 X 10*3/uL (0.90-5.00); Lymphocytes % (A) 8.1 %; MCH 30.7 pg (27.0-32.0); MCHC 32.6 g/dL (32.0-37.0); MCV 94.2 fL (80.0-97.0); Mean Platelet Volume 11.2 fL (9.5-12.2); Monocytes # (A) 0.83 X 10*3/uL (0.20-1.00); Monocytes % (A) 8.3 %; Neutrophils # (A) 8.32 X 10*3/uL (1.80-7.70); Neutrophils % (A) 82.9 %; Platelet Count 198 X 10*3/uL (140-440); RBC 3.61 X 10*6/uL (4.10-5.20); RDW 14.1 % (11.5-14.5); WBC 10.03 X 10*3/uL (4.50-10.00)
[2021-04-19] MEDS ORDERED: cefTAZidime 2 GM in SODIUM CHLORIDE 0.9% 50 ML IVPB SCH (16:00)
[2021-04-19 16:33] LABS: African American GFR (CKD) 114.6 (60.0-200.0); Albumin/Globulin Ratio 1.76 (1.60-3.17); Anion Gap 5.5 mmol/L (4.00-12.00); BUN/Creat Ratio 21.43 Ratio (12.00-20.00); Calcium 8.6 mg/dL (8.7-10.3); Carbon Dioxide 25.5 mmol/L (21.6-31.8); Globulin 1.7 g/dL (1.6-3.3); Non-African American GFR(CKD) 98.9 (60.0-200.0); Potassium 3.4 mmol/L (3.5-5.5); Total Bilirubin 0.4 mg/dL (0.3-1.2); Total Protein 4.7 g/dL (6.2-8.2)
--- NOTE | 2021-04-19 17:56 | PN ---
PROGRESS NOTE DATE OF SERVICE: 04/19/2021 This 55-year-old woman with a past medical history of multiple medical problems, including multiple sclerosis, was admitted with fever and UTI. The patient was started on IV antibiotics; however, the patient developed hypotension secondary to sepsis. The patient was given multiple IV fluid boluses. The blood pressures are in 100 systolic range. The patient was transferred to ICU. Lactic acid is only 0.6. Infectious disease as well as critical care consultation has been sought. Patient is being closely monitored at this time. Past medical history reviewed. REVIEW OF SYSTEMS: CARDIOVASCULAR SYSTEM: No angina, palpitations. RESPIRATORY SYSTEM: As mentioned earlier. GI: As mentioned earlier. : No dysuria. NERVOUS SYSTEM: No numbness, weakness. MEDICATIONS: Current medications are reviewed and include Tylenol, gabapentin, Motrin, Narcan, Protonix, Ultram. PHYSICAL EXAMINATION: Patient is alert, oriented x3. Pulse is 86, blood pressure 106/ respiration 18, temperature 97.7, pulse ox 94% on room air. HEENT: Conjunctivae normal. Oral mucosa moist. NECK: No jugular venous distention. No carotid bruit. No lymph node enlargement. CARDIOVASCULAR: S1, S2 muffled. RESPIRATION: Breath sounds diminished at the bases. A few scattered rhonchi and crackles. ABDOMEN: Soft, nontender. No mass palpable. LEGS: No edema. No swelling. NERVOUS SYSTEM: Diffusely weak. Some contractures and wasting also present. SKIN: No ulcer, rash, bleeding. LABS: Labs at this time show WBC 9.3, hemoglobin 10.9, glucose 173. Cortisol is 11. Previous cultures are showing Pseudomonas, E coli and Ludmila glabrata. ASSESSMENT: 1. Acute urinary tract infection with severe sepsis and septic shock and hypotension with failure of outpatient treatment. 2. Increased white count. 3. Previous history of Pseudomonas and multiple urinary tract infections. 4. History of multiple sclerosis. 5. History of spastic colon. 6. History of left leg edema. 7. History of right buttock decubitus. 8. FULL CODE. RECOMMENDATIONS AND DISCUSSION: I recommend to continue current medications, continue with symptomatic treatment. Continue with the broad-spectrum IV antibiotics. The patient is started on ceftazidime. We will follow the cultures. Other than that, continue to monitor. Repeat labs. DVT prophylaxis. Monitor closely. Prognosis guarded. Further recommendations to follow. I would also check a set of troponins. MMODL / IJN: [id number] /
[2021-04-19] MEDS: HEPARIN SODIUM,PORCINE/PF 5,000 UNIT/0.5 ML SYRINGE SQ SCH (21:06)
[2021-04-19] MEDS: PANTOPRAZOLE 40 MG/10 ML VIAL IVP SCH (21:07)
--- NOTE | 2021-04-19 22:37 | P.CONS ---
History of Present Illness - Reason for Consult Consult date: 04/19/21 sepsis Requesting physician: Carol Mckinney - Chief Complaint weakness and fever x few days - History of Present Illness History of present illness : Patient is 55-year female with a past medical history significant for MS history of recurrent urinary tract infection presenting to [facility] yesterday evening for evaluation of fever and increased weakness in this patient symptom has been going on for about 3 days patient was diagnosed with a UTI about 5 days ago and was started on Macrobid however the patient did have increasing weakness no energy and started having a fever over the weekend patient denies having any headache or URI symptoms no chest pain shortness of breath or cough no abdominal pain no diarrhea on presentation the hospital patient with did have a fever 102.7 degree form height patient was tachycardic no hypoxemia do not did have a white count of 10.03 with a left shift creatinine was normal did have a positive UA patient was started on Rocephin and was admitted to the floor patient did have a chest x-ray that was negative for any pneumonia early this morning the patient had did have a rapid response secondary to hypotension patient was noticed to have blood pressures in 74/45 he did receive 500 cc bolus and subsequently patient was transferred to the ICU antibiotic were adjusted to Fortaz 1 g every 12 as the patient has recently grown Pseudomonas infectious disease was consulted for further management of antibiotic therapy, patient did have indwelling Myers catheter that was changed over the weekend at home and home care nurse, patient be complaining of some dark urine and also complaining of some suprapubic discomfort but no flank pain did have nausea and vomiting no diarrhea Review of system: CONSTITUTIONAL: Positive for weakness along with the fever. EYES: No complaint. ENT: No complaint. RESPIRATORY: No complaint. CARDIOVASCULAR: No complaint. GENITOURINARY: As per history of present illness GASTROINTESTINAL: No complaint. MUSCULOSKELETAL: No complaint. INTEGUMENTARY: No complaint. PSYCHOLOGIC: No complaint. ENDOCRINE: No complaint. NEUROLOGIC: No complaint. Past medical history : Reviewed, documented below Past surgical history : Reviewed, documented below Social history: Reviewed, documented below Medications: Reviewed, as documented below GENERAL DESCRIPTION: Middle-aged female lying in bed, no distress. No tachypnea or accessory muscle of respiration use. HEENT: Shows Pallor , no scleral icterus. Oral mucous membrane is dry. NECK: Trachea central, no thyromegaly. LUNGS: Unlabored breathing. Clear to auscultation anteriorly. No wheeze or crackle. HEART: S1, S2, regular rate and rhythm. ABDOMEN: Soft, no tenderness , guarding or rigidity EXTREMITIES: No edema of feet. SKIN: No rash, no masses palpable. NEUROLOGICAL: The patient is awake, alert, oriented x3, mood and affect normal. LABS AND RADIOLOGY: Reviewed results see below Assessment : Patient presented to hospital with sepsis in this patient who did have a fever tachycardia hypotension secondary to urinary source this patient did have a significantly positive UA did have risk factors of Myers catheter and history of recurrent UTI last urine culture positive for Pseudomonas Plan: 1-adjust the dose of Fortaz to 2 g every 8 hour 2-IV fluid We will follow on clinical condition and cultures to further adjust medication if needed Thank you for this consultation we will follow the patient along with you Past Medical History Additional Past Medical History / Comment(s): Multiple sclerosis, spastic colon, left leg edema, right buttocks decub History of Any Multi-Drug Resistant Organisms: None Reported Past Surgical History: No Surgical Hx Reported Additional Past Surgical History / Comment(s): MS Past Anesthesia/Blood Transfusion Reactions: No Reported Reaction Past Psychological History: No Psychological Hx Reported Smoking Status: Never smoker Past Alcohol Use History: None Reported Past Drug Use History: None Reported - Past Family History Mother Additional Family Medical History / Comment(s): Brain tumor Father Family Medical History: CVA/TIA Additional Family Medical History / Comment(s): from stroke Medications and Allergies Home Medications Medication Instructions Recorded Confirmed Type Gabapentin [Neurontin] 600 mg PO BID 03/16/17 04/18/21 History tiZANidine HCL [Zanaflex] 8 mg PO HS 03/16/17 04/18/21 History Omeprazole [PriLOSEC] 20 mg PO DAILY 10/23/20 04/18/21 History Solifenacin Succinate [Vesicare] 10 mg PO HS 10/23/20 04/18/21 History Cholecalciferol [Vitamin D3 (25 25 mcg PO DAILY 04/18/21 04/18/21 History Mcg = 1000 Iu)] Furosemide [Lasix] 20 mg PO DAILY 04/18/21 04/18/21 History Multivitamins, Thera [Multivitamin 1 tab PO DAILY 04/18/21 04/18/21 History (formulary)] Nitrofurantoin Monohyd/M-Cryst 100 mg PO Q12HR 04/18/21 04/18/21 History [Macrobid] Ocrevus 1 dose IV Q182D 04/18/21 04/18/21 History tiZANidine HCL 4 mg PO DAILY 04/18/21 04/18/21 History traMADol HCL [Ultram] 50 mg PO BID 04/18/21 04/18/21 History Allergies Allergy/AdvReac Type Severity Reaction Status Date / Time No Known Allergies Allergy Verified 04/18/21 20:13 Physical Exam Vitals: Vital Signs Temp Pulse Pulse Resp BP BP Pulse Ox 04/19/21 11:00 19 86/49 96 04/19/21 10:45 81 18 84/46 95 04/19/21 10:30 10 L 85/49 94 L 04/19/21 10:26 94 L 04/19/21 07:17 98.5 F 04/19/21 07:16 62/40 04/19/21 07:00 98.4 F 73 18 97 04/19/21 01:35 100.1 F H 112 H 19 115/68 99 04/18/21 21:55 99.5 F 122 H 18 122/77 96 04/18/21 21:38 18 04/18/21 20:44 102.2 F H 130 H 18 114/73 95 04/18/21 19:00 102.7 F H 127 H 18 111/68 94 L Intake and Output 04/18/21 04/19/21 04/19/21 22:59 06:59 14:59 Intake Total 100 Output Total 580 75 Balance -580 25 Intake: Oral 100 Output: Urine 580 75 Other: Voiding Method Indwelling Catheter # Bowel Movements 0 Weight 70.624 kg Results CBC & Chem 7: 04/19/21 07:53 04/19/21 06:39 Labs: Abnormal Lab Results - Last 24 Hours (Table) 04/18/21 04/18/21 04/18/21 Range/Units 19:40 19:40 19:40 WBC 14.8 H (3.8-10.6) k/uL RBC (3.80-5.40) m/uL Hgb (11.4-16.0) gm/dL Hct (34.0-46.0) % Neutrophils # 13.3 H (1.3-7.7) k/uL Lymphocytes # 0.6 L (1.0-4.8) k/uL POC Glucose (mg/dL) (75-99) mg/dL Plasma Lactic Acid Gavino (0.7-2.0) mmol/L Creatine Kinase 21 L (30-135) U/L Urine Appearance Turbid H (Clear) Urine Protein 1+ H (Negative) Urine Ketones 2+ H (Negative) Urine Blood Small H (Negative) Ur Leukocyte Esterase Large H (Negative) Urine RBC 29 H (0-5) /hpf Urine WBC >182 H (0-5) /hpf Urine WBC Clumps Many H (None) /hpf Urine Bacteria Moderate H (None) /hpf Urine Mucus Rare H (None) /hpf 04/19/21 04/19/21 04/19/21 Range/Units 07:43 07:53 10:28 WBC (3.8-10.6) k/uL RBC 3.44 L (3.80-5.40) m/uL Hgb 10.9 L D (11.4-16.0) gm/dL Hct 31.7 L (34.0-46.0) % Neutrophils # 7.8 H (1.3-7.7) k/uL Lymphocytes # 0.9 L (1.0-4.8) k/uL POC Glucose (mg/dL) 173 H (75-99) mg/dL Plasma Lactic Acid Gavino 0.6 L (0.7-2.0) mmol/L Creatine Kinase (30-135) U/L Urine Appearance (Clear) Urine Protein (Negative) Urine Ketones (Negative) Urine Blood (Negative) Ur Leukocyte Esterase (Negative) Urine RBC (0-5) /hpf Urine WBC (0-5) /hpf Urine WBC Clumps (None) /hpf Urine Bacteria (None) /hpf Urine Mucus (None) /hpf Microbiology - Last 24 Hours (Table) 04/18/21 19:40 Urine Culture - Preliminary Urine,Voided
[2021-04-20] MEDS: SODIUM CHLORIDE 0.9% 1,000 ML IV SCH ×2 (03:35→11:23)
[2021-04-20 04:08] LABS: Basophils % (A) 0 %; Eosinophils % (A) 0 %; HCT 34.6 % (34.0-46.0); HGB 11.3 gm/dL (11.4-16.0); Lymphocytes # (A) 1.2 k/uL (1.0-4.8); Lymphocytes % (A) 14 %; MCH 31.1 pg (25.0-35.0); MCHC 32.8 g/dL (31.0-37.0); Mean Platelet Volume 8.2; Monocytes # (A) 0.5 k/uL (0-1.0); Monocytes % (A) 6 %; Neutrophils # (A) 6.4 k/uL (1.3-7.7); Neutrophils % (A) 77 %; Platelet Count 143 k/uL (150-450); RBC 3.65 m/uL (3.80-5.40); RDW 14.2 % (11.5-15.5); WBC 8.3 k/uL (3.8-10.6)
[2021-04-20 04:33] LABS: African American GFR (CKD) >90 (>60 ml/min/1.73 sqM); Anion Gap 6 mmol/L; Blood Urea Nitrogen 10 mg/dL (7-17); Carbon Dioxide 21 mmol/L (22-30); Chloride 112 mmol/L (98-107); Glucose 89 mg/dL (74-99); Non-African American GFR(CKD) >90 (>60 ml/min/1.73 sqM); Potassium 3.4 mmol/L (3.5-5.1); Sodium 139 mmol/L (137-145)
[2021-04-20] MEDS ORDERED: Potassium Replacement Protocol 1 EACH MISC MISCELLANE PRN ×2 (06:58→14:06)
[2021-04-20] MEDS: POTASSIUM CHLORIDE ER 20 MEQ TAB.ER PO SCH ×2 (07:09→09:28)
[2021-04-20] MEDS: IBUPROFEN 400 MG TAB PO PRN (07:12)
[2021-04-20] MEDS: traMADol 50 MG TAB PO SCH ×2 (09:24→21:11)
[2021-04-20] MEDS: GABAPENTIN 300 MG CAP PO SCH ×2 (09:25→21:11)
[2021-04-20] MEDS: tiZANidine 4 MG TAB PO SCH ×2 (09:26→21:14)
[2021-04-20] MEDS: PANTOPRAZOLE 40 MG/10 ML VIAL IVP SCH ×2 (09:27→21:13)
[2021-04-20] MEDS: TROSPIUM CHLORIDE 20 MG TABLET PO SCH ×2 (09:27→21:17)
[2021-04-20] MEDS: HEPARIN SODIUM,PORCINE/PF 5,000 UNIT/0.5 ML SYRINGE SQ SCH ×2 (09:28→21:12)
--- NOTE | 2021-04-20 10:55 | P.PN ---
Subjective Progress Note Date: 04/20/21 55-year-old female with a history of progressive multiple sclerosis, and indwelling Myers catheter. The patient presented to the emergency department on April 18, complaining of fever, weakness, and possible recurrent urinary tract infection. The patient was recently started on Macrobid, about 5 days prior to admission. Unfortunately, the patient got progressively weaker, with fevers, and came into the emergency room where she was admitted with a diagnosis of probable urinary tract infection/we were called to see her today because she became hypotensive. She received 1/2 L of fluid on the floor. She is currently on antibiotics. Despite that, she was still hypotensive, and we decided to ernandez sfer her to the intensive care unit. Reactive examine her and spoke to her on the floor. White count was 9.3, hemoglobin 10.9, hematocrit 31.7, and platelet count 185,000. Sodium 138, potassium 3.7, chlorides 100, CO2 26, anion gap 12, BUN 13, and creatinine 0.77. Urine from yesterday was yellow and turbid. It was 1+ protein 2+ ketones and small amount of blood. Leukocyte esterase was large positive. There are 29 RBCs, greater than then 182 WBCs, with a white blood cell clumps, and moderate bacteria. Coronavirus testing was negative. Currently, the patient is on Fortaz, because her previous pathogens were sensitive to this antibiotic. She is in no distress. The patient is seen today 04/20/2021 in follow-up in the intensive care unit. He was transferred here yesterday for hypotension secondary to sepsis. Currently she is awake and alert in no acute distress. She is maintaining O2 saturation on the 90s on room air. Blood cultures revealing no growth to date. Urine culture pending. White count 8.3. Hemoglobin 11.3. Platelet count 143. Sodium 139. Potassium 3.4. Bicarb 21. Creatinine 0.66. Cortisol level 11. She is currently afebrile. Did have a T-max last evening at 102.7. She has 0.9 normal saline 130 ML's per hour. She is on antibiotics in the form of cef tazidime. Objective - Vital Signs Vital signs: Vital Signs Temp 98.9 F 04/20/21 08:00 Pulse 93 04/20/21 10:00 Resp 15 04/20/21 10:00 BP 97/65 04/20/21 10:00 Pulse Ox 91 L 04/20/21 10:00 Intake & Output 04/19/21 04/20/21 04/20/21 18:59 06:59 18:59 Intake Total 300 1745 590 Output Total 515 510 180 Balance -215 1235 410 Weight 76.6 kg Intake: IV 260 Sodium Chloride 0.9% 1, 260 000 ml @ 130 mls/hr IV . Q7H42M [facility] Rx#:[id number] Intake, IV Titration 1555 130 Amount Sodium Chloride 0.9% 1, 1430 130 000 ml @ 130 mls/hr IV . Q7H42M [facility] Rx#:[id number] cefTAZidime 2 gm In 125 Sodium Chloride 0.9% 100 ml @ 25 mls/hr IVPB Q8HR [facility] Rx#:[id number] Oral 300 190 200 Output: Urine 515 510 180 Other: Voiding Method Indwelling Catheter Indwelling Catheter Indwelling Catheter - Exam GENERAL EXAM: Alert, pleasant 55-year-old female patient, on room air, comfortable in no apparent distress. HEAD: Normocephalic. EYES: Normal reaction of pupils, equal size. NOSE: Clear with pink turbinates. THROAT: No erythema or exudates. NECK: No masses, no JVD. CHEST: No chest wall deformity. LUNGS: Equal air entry with no crackles, wheeze, rhonchi or dullness. CVS: S1 and S2 normal with no audible murmur, regular rhythm. ABDOMEN: No hepatosplenomegaly, normal bowel sounds, no guarding or rigidity. SPINE: No scoliosis or deformity SKIN: No rashes CENTRAL NERVOUS SYSTEM: No focal deficits, tone is normal in all 4 extremities. EXTREMITIES: There is no peripheral edema. No clubbing, no cyanosis. Peripheral pulses are intact. - Labs CBC & Chem 7: 04/20/21 03:39 04/20/21 03:39 Labs: Abnormal Lab Results - Last 24 Hours (Table) 04/19/21 04/19/21 04/20/21 Range/Units 06:39 06:39 03:39 WBC 10.03 H (4.50-10.00) X 10*3/uL RBC 3.61 L 3.65 L (4.10-5.20) X 10*6/uL Hgb 11.1 L 11.3 L (12.0-15.0) g/dL Hct 34.0 L (37.2-46.3) % Plt Count 143 L (150-450) k/uL Neutrophils # 8.32 H (1.80-7.70) X 10*3/uL Lymphocytes # 0.81 L (0.90-5.00) X 10*3/uL Eosinophils # 0 L (0.04-0.35) X 10*3/uL Potassium 3.4 L (3.5-5.5) mmol/L Chloride (98-107) mmol/L Carbon Dioxide (22-30) mmol/L BUN/Creatinine Ratio 21.43 H (12.00-20.00) Ratio Glucose 147 H (70-110) mg/dL Calcium 8.6 L (8.7-10.3) mg/dL Total Protein 4.7 L (6.2-8.2) g/dL Albumin 3.00 L (3.80-4.90) g/dL 04/20/21 Range/Units 03:39 WBC (4.50-10.00) X 10*3/uL RBC (4.10-5.20) X 10*6/uL Hgb (12.0-15.0) g/dL Hct (37.2-46.3) % Plt Count (150-450) k/uL Neutrophils # (1.80-7.70) X 10*3/uL Lymphocytes # (0.90-5.00) X 10*3/uL Eosinophils # (0.04-0.35) X 10*3/uL Potassium 3.4 L (3.5-5.5) mmol/L Chloride 112 H (98-107) mmol/L Carbon Dioxide 21 L (22-30) mmol/L BUN/Creatinine Ratio (12.00-20.00) Ratio Glucose (70-110) mg/dL Calcium (8.7-10.3) mg/dL Total Protein (6.2-8.2) g/dL Albumin (3.80-4.90) g/dL Microbiology - Last 24 Hours (Table) 04/18/21 20:00 Blood Culture - Preliminary Blood No Growth after 24 hours 04/18/21 19:40 Blood Culture - Preliminary Blood No Growth after 24 hours 04/18/21 19:40 Urine Culture - Preliminary Urine,Voided Assessment and Plan Assessment: 1 Acute urinary tract infection, with possible bacteremia and septic shock. Initial blood cultures revealing no growth. 2 History of recurrent urinary tract infections, most recently secondary to pseudomonas aeruginosa and Escherichia coli. 3 History of progressive multiple sclerosis. 4 History of spastic colon. 5 History of right buttock decubitus ulcer. 6 Lifelong nontobacco user. Plan: The patient was seen and evaluated by Dr. Cantrell Continue fluid resuscitation Continue ceftazidime Add hydrocortisone 50 mg every 6 hours IV Continue to follow here in the ICU Will make further recommendations based on her clinical status I, the cosigning physician, performed a history & physical examination of the patient. Lungs sounds are clear. Maintaining good O2 saturations in the 90s on room air. I discussed the assessment and plan of care with my nurse practitioner, Jovana Wallace. I attest to the above note as dictated by her.
--- NOTE | 2021-04-20 12:32 | PN ---
PROGRESS NOTE DATE OF SERVICE: 04/20/2021 REASON FOR FOLLOWUP: UTI, complicated. INTERVAL HISTORY: The patient is afebrile. The patient is feeling slightly better. The patient is breathing comfortably. The patient denies having any chest pain, shortness of breath or cough. No nausea, no vomiting. No abdominal pain or diarrhea. PHYSICAL EXAMINATION: Blood pressure 108/64 with a pulse of , temperature 98. She is 92% on room air. GENERAL DESCRIPTION: General description is a middle-aged female lying in bed in no distress. RESPIRATORY SYSTEM: Unlabored breathing. Clear to auscultation anteriorly. HEART: S1, S2. Regular rate and rhythm. ABDOMEN: Soft. No tenderness. LABS: Hemoglobin is 11.3, white count 8.3, BUN of 10, creatinine 0.66. Cultures are currently pending. DIAGNOSTIC IMPRESSION AND PLAN: Patient admitted to hospital with fever source is likely urinary in this patient with underlying urinary retention from the MS and a catheter-associated UTI. Patient is covered with Fortaz with the recent culture positive for Pseudomonas. She will continue on Fortaz while waiting for the culture to finalize and continue with supportive care. MMODL / IJN: [id number] /
[2021-04-20] MEDS: FUROSEMIDE 20 MG TAB PO SCH (13:35)
[2021-04-20] MEDS: CHOLECALCIFEROL 25 MCG (1000 IU) TABLET PO SCH (13:40)
[2021-04-20] MEDS: HYDROCORTISONE SUCCINATE 100 MG/2 ML VIAL IV SCH ×2 (13:40→18:39)
[2021-04-20] MEDS: MULTIVITAMINS, THERA 1 EACH TAB PO SCH (13:40)
[2021-04-20] MEDS ORDERED: Magnesium Replacement Protocol 1 EACH MISC MISCELLANE PRN (14:06)
--- NOTE | 2021-04-20 15:42 | PN ---
PROGRESS NOTE DATE OF SERVICE: 04/20/2021 INTERVAL HISTORY: This 55-year-old woman was admitted with UTI with sepsis also had hypertension. Patient monitored closely in the ICU. The patient received multiple doses of bolus fluids. Cultures are negative so far. The patient has also been started with IV hydrocortisone. The serum cortisol level is 11. COVID-19 is negative. PAST MEDICAL HISTORY: Reviewed. REVIEW OF SYSTEMS: CARDIOVASCULAR No angina or palpitations. RESPIRATORY No cough, no hemoptysis. GI As mentioned earlier. No dysuria or hematuria. NERVOUS No numbness or weakness. CURRENT MEDICATIONS: Reviewed include Tylenol, [place], ceftazidime, vitamin D3, Lasix, Neurontin, Solu- Cortef, Motrin, multivitamin, Protonix. PHYSICAL EXAMINATION: The patient is alert and oriented x3. Pulse is 68, blood pressure 109/67, respirations 16, temperature 98.4, pulse ox 98% on room air. HEENT: Conjunctivae normal. Oral mucosa moist. NECK: No jugular venous distention. No lymph node enlargement. CARDIOVASCULAR: S1, S2, muffled. No S3, no S4, RESPIRATORY: Diminished breath sounds at the bases. A few rhonchi, no crackles. ABDOMEN: Soft, nontender. LEGS: No edema, no swelling. NERVOUS SYSTEM: Diffusely weak. LABS: Platelets 143, WBC 8.2, sodium 137, potassium 3.3. ASSESSMENT: 1. Acute urinary tract infection with severe sepsis, septic shock and hypotension with failure of outpatient treatment, possibly gram-negative. 2. Increased WBC. 3. Previous history of Pseudomonas and multiple urinary tract infections. 4. History of multiple sclerosis. 5. History of gait dysfunction. 6. History of spastic colon. 7. History of left leg edema. 8. History of right buttocks decubitus. 9. Hypokalemia. RECOMMENDATIONS AND DISCUSSION: I recommend to continue current management and symptomatic treatment. Otherwise, continue with the empiric antibiotics. Follow the cultures. Empiric steroids also been initiated. Otherwise, we will continue to monitor. Guarded prognosis. Further recommendations to follow. See orders for details. MMODL / IJN: [id number] /
[2021-04-20] MEDS: 0.9% NACL WITH KCL 20 MEQ/L 1,000 ML IV SCH (16:20)
[2021-04-21] MEDS: IBUPROFEN 400 MG TAB PO PRN ×2 (00:33→10:40)
[2021-04-21] MEDS: HYDROCORTISONE SUCCINATE 100 MG/2 ML VIAL IV SCH ×2 (00:33→08:57)
[2021-04-21 03:58] LABS: Basophils % (A) 0 %; Eosinophils % (A) 0 %; HCT 33.4 % (34.0-46.0); HGB 11.3 gm/dL (11.4-16.0); Lymphocytes # (A) 0.8 k/uL (1.0-4.8); Lymphocytes % (A) 14 %; MCH 31.5 pg (25.0-35.0); MCHC 33.9 g/dL (31.0-37.0); MCV 92.9 fL (80.0-100.0); Monocytes # (A) 0.2 k/uL (0-1.0); Monocytes % (A) 4 %; Neutrophils # (A) 4.5 k/uL (1.3-7.7); Neutrophils % (A) 80 %; Platelet Count 185 k/uL (150-450); RDW 14.1 % (11.5-15.5); WBC 5.6 k/uL (3.8-10.6)
[2021-04-21 04:16] LABS: African American GFR (CKD) >90 (>60 ml/min/1.73 sqM); Anion Gap 5 mmol/L; Blood Urea Nitrogen 8 mg/dL (7-17); Calcium 9.3 mg/dL (8.4-10.2); Carbon Dioxide 20 mmol/L (22-30); Chloride 114 mmol/L (98-107); Glucose 160 mg/dL (74-99); Magnesium 1.7 mg/dL (1.6-2.3); Non-African American GFR(CKD) >90 (>60 ml/min/1.73 sqM); Potassium 3.9 mmol/L (3.5-5.1); Sodium 139 mmol/L (137-145)
[2021-04-21] MEDS: GABAPENTIN 300 MG CAP PO SCH ×2 (08:57→20:20)
[2021-04-21] MEDS: HEPARIN SODIUM,PORCINE/PF 5,000 UNIT/0.5 ML SYRINGE SQ SCH ×2 (08:57→20:20)
[2021-04-21] MEDS: traMADol 50 MG TAB PO SCH ×2 (08:57→20:21)
[2021-04-21] MEDS: FUROSEMIDE 20 MG TAB PO SCH (08:57)
[2021-04-21] MEDS: PANTOPRAZOLE 40 MG/10 ML VIAL IVP SCH (08:58)
[2021-04-21] MEDS: tiZANidine 4 MG TAB PO SCH ×2 (08:58→20:21)
--- NOTE | 2021-04-21 09:13 | P.PN ---
Subjective Progress Note Date: 04/21/21 55-year-old female with a history of progressive multiple sclerosis, and indwelling Myers catheter. The patient presented to the emergency department on April 18, complaining of fever, weakness, and possible recurrent urinary tract infection. The patient was recently started on Macrobid, about 5 days prior to admission. Unfortunately, the patient got progressively weaker, with fevers, and came into the emergency room where she was admitted with a diagnosis of probable urinary tract infection/we were called to see her today because she became hypotensive. She received 1/2 L of fluid on the floor. She is currently on antibiotics. Despite that, she was still hypotensive, and we decided to ernandez sfer her to the intensive care unit. Reactive examine her and spoke to her on the floor. White count was 9.3, hemoglobin 10.9, hematocrit 31.7, and platelet count 185,000. Sodium 138, potassium 3.7, chlorides 100, CO2 26, anion gap 12, BUN 13, and creatinine 0.77. Urine from yesterday was yellow and turbid. It was 1+ protein 2+ ketones and small amount of blood. Leukocyte esterase was large positive. There are 29 RBCs, greater than then 182 WBCs, with a white blood cell clumps, and moderate bacteria. Coronavirus testing was negative. Currently, the patient is on Fortaz, because her previous pathogens were sensitive to this antibiotic. She is in no distress. The patient is seen today 04/20/2021 in follow-up in the intensive care unit. He was transferred here yesterday for hypotension secondary to sepsis. Currently she is awake and alert in no acute distress. She is maintaining O2 saturation on the 90s on room air. Blood cultures revealing no growth to date. Urine culture pending. White count 8.3. Hemoglobin 11.3. Platelet count 143. Sodium 139. Potassium 3.4. Bicarb 21. Creatinine 0.66. Cortisol level 11. She is currently afebrile. Did have a T-max last evening at 102.7. She has 0.9 normal saline 130 ML's per hour. She is on antibiotics in the form of cef tazidime. She is seen today 04/21/2021 in follow-up in the intensive care unit. She is currently resting fairly comfortably in bed. Awake, alert, no acute distress. She is maintaining O2 saturations in the 90s on room air. She has 0.9 normal saline at 130 ML's per hour. She is continued on Fortaz. Remains afebrile. Hemodynamically stable. Blood cultures reveal no growth. Urine culture pending. White count 5.6. Hemoglobin 11.3. Sodium 139. Potassium 3.9. Creatinine 0.57. Glucose 160. Remains on hydrocortisone 50 mg IV every 6 hours. Heparin for DVT prophylaxis. Objective - Vital Signs Vital signs: Vital Signs Temp 98.4 F 04/21/21 04:00 Pulse 73 04/21/21 07:00 Resp 14 04/21/21 07:00 BP 131/83 04/21/21 07:00 Pulse Ox 92 L 04/21/21 07:00 Intake & Output 04/20/21 04/21/21 04/21/21 18:59 06:59 18:59 Intake Total 1840 1525 590 Output Total 1340 1205 20 Balance 500 320 570 Weight 80.7 kg Intake: IV 1410 1405 110 Sodium Chloride 0.9% 1, 1410 1330 110 000 ml @ 130 mls/hr IV . Q7H42M [facility] Rx#:[id number] cefTAZidime 2 gm In 75 Sodium Chloride 0.9% 100 ml @ 25 mls/hr IVPB Q8HR [facility] Rx#:[id number] Intake, IV Titration 130 Amount Sodium Chloride 0.9% 1, 130 000 ml @ 130 mls/hr IV . Q7H42M [facility] Rx#:[id number] Oral 300 120 480 Output: Urine 1340 1205 20 Other: Voiding Method Indwelling Catheter Indwelling Catheter - Exam GENERAL EXAM: Alert, pleasant 55-year-old female patient, on room air, comfortable in no apparent distress. HEAD: Normocephalic. EYES: Normal reaction of pupils, equal size. NOSE: Clear with pink turbinates. THROAT: No erythema or exudates. NECK: No masses, no JVD. CHEST: No chest wall deformity. LUNGS: Equal air entry with no crackles, wheeze, rhonchi or dullness. CVS: S1 and S2 normal with no audible murmur, regular rhythm. ABDOMEN: No hepatosplenomegaly, normal bowel sounds, no guarding or rigidity. SPINE: No scoliosis or deformity SKIN: No rashes CENTRAL NERVOUS SYSTEM: No focal deficits, tone is normal in all 4 extremities. EXTREMITIES: There is no peripheral edema. No clubbing, no cyanosis. Peripheral pulses are intact. - Labs CBC & Chem 7: 04/21/21 03:08 04/21/21 03:08 Labs: Abnormal Lab Results - Last 24 Hours (Table) 04/20/21 04/21/21 04/21/21 Range/Units 10:40 03:08 03:08 RBC 3.60 L (3.80-5.40) m/uL Hgb 11.3 L (11.4-16.0) gm/dL Hct 33.4 L (34.0-46.0) % Lymphocytes # 0.8 L (1.0-4.8) k/uL Potassium 3.3 L (3.5-5.1) mmol/L Chloride 114 H (98-107) mmol/L Carbon Dioxide 20 L (22-30) mmol/L Glucose 160 H (74-99) mg/dL Microbiology - Last 24 Hours (Table) 04/18/21 20:00 Blood Culture - Preliminary Blood No Growth after 48 hours 04/18/21 19:40 Blood Culture - Preliminary Blood No Growth after 48 hours Assessment and Plan Assessment: 1 Acute urinary tract infection, with possible bacteremia and septic shock. Recovered. Initial blood cultures revealing no growth. Remains on Fortaz. 2 History of recurrent urinary tract infections, most recently secondary to pseudomonas aeruginosa and Escherichia coli. 3 History of secondary progressive multiple sclerosis. 4 History of spastic colon. 5 History of right buttock decubitus ulcer. 6 Lifelong nontobacco user. Plan: The patient was seen and evaluated by Dr. Cantrell Decrease fluids to PIVL Continue ceftazidime Discontinue hydrocortisone Transfer to regular medical floor We will continue to follow I, the cosigning physician, performed a history & physical examination of the patient. Lungs sounds are clear. Maintaining good O2 saturations in the 90s on room air. I discussed the assessment and plan of care with my nurse practitioner, Jovana Wallace. I attest to the above note as dictated by her.
[2021-04-21] MEDS: MULTIVITAMINS, THERA 1 EACH TAB PO SCH (15:52)
[2021-04-21] MEDS: CHOLECALCIFEROL 25 MCG (1000 IU) TABLET PO SCH (15:52)
[2021-04-21] MEDS: PANTOPRAZOLE 40 MG TABLET PO SCH (16:38)
--- NOTE | 2021-04-21 18:38 | PN ---
PROGRESS NOTE DATE OF SERVICE: 04/21/2021 This 55-year-old woman was admitted with UTI, severe sepsis and hypotension. The patient is being closely monitored in the ICU. The urine culture showed gram-negative bacilli #1 and two IDs are pending at this time. No chest pain. No palpitations. No fever. PHYSICAL EXAMINATION: Pulse is 71, blood pressure 127/82, respiration 13, temperature 97.4, pulse ox 94% on room air. HEENT: Conjunctivae normal. Oral mucosa moist. NECK: No jugular venous distention. No lymph node enlargement. CARDIOVASCULAR: S1, S2, muffled. No S3, no S4, RESPIRATORY: Diminished breath sounds at the bases. No rhonchi. ABDOMEN: Soft, nontender. LEGS: No edema, no swelling. NERVOUS SYSTEM: Diffusely weak and wasting. LABS: WBC 5.2, hemoglobin 11.3, potassium 3.9. ASSESSMENT: 1. Acute urinary tract infection with severe sepsis, septic shock and hypotension with failure of outpatient treatment present on admission, caused by gram-negative bacilli in the urine x2. 2. Increased WBC. 3. Previous history of Pseudomonas and multiple UTIs. 4. Generalized weakness. 5. History of multiple sclerosis. 6. Gait dysfunction. 7. History of spastic colon. 8. History of left leg edema. 9. History of right buttock decubitus. 10.Hypokalemia. 11.Anemia, normocytic anemia of chronic disease. 12.FULL CODE. RECOMMENDATIONS: In this 55-year-old woman who presented with multiple complex medical issues, we will monitor the patient closely, continue the current management, continue symptomatic treatment. The patient is currently on ceftazidime. We will await the ID of the organisms. The prognosis guarded because of multiple complex medical issues. Further recommendations to follow. MMODL / IJN: [id number] /
[2021-04-21] MEDS: TROSPIUM CHLORIDE 20 MG TABLET PO SCH (20:21)
[2021-04-21 20:29] VITALS: TEMP 97.9
--- NOTE | 2021-04-21 22:58 | PN ---
PROGRESS NOTE DATE OF SERVICE: 04/21/2021 REASON FOR FOLLOWUP: UTI and sepsis. INTERVAL HISTORY: The patient is afebrile. The patient is feeling better, breathing comfortably. Denies having any chest pain, shortness of breath or cough. No nausea, no vomiting, no abdominal pain or diarrhea. PHYSICAL EXAMINATION: Blood pressure 135/81 with a pulse of 70, temperature 97.9. She is 96% on room air. GENERAL DESCRIPTION: General description is a middle-aged female lying in bed in no distress. RESPIRATORY SYSTEM: Unlabored breathing. Clear to auscultation anteriorly. HEART: S1, S2. Regular rate and rhythm. ABDOMEN: Soft. No tenderness. LABS: Hemoglobin 11.3, white count 5.6, BUN of 8, creatinine 0.57. DIAGNOSTIC IMPRESSION AND PLAN: Patient with Gram-negative catheter-associated urinary tract infection. Cultures are currently pending. Patient to continue Fortaz while waiting for the culture to finalize and monitor her clinical course closely. MMODL / IJN: [id number] /
[2021-04-22] MEDS: 0.9% NACL WITH KCL 20 MEQ/L 1,000 ML IV SCH (02:29)
[2021-04-22 03:58] LABS: Basophils % (A) 0 %; Eosinophils # (A) 0.1 k/uL (0-0.7); Eosinophils % (A) 1 %; HCT 32.6 % (34.0-46.0); HGB 11.2 gm/dL (11.4-16.0); Lymphocytes # (A) 2.5 k/uL (1.0-4.8); Lymphocytes % (A) 33 %; MCH 31.3 pg (25.0-35.0); MCHC 34.3 g/dL (31.0-37.0); MCV 91.2 fL (80.0-100.0); Monocytes # (A) 0.4 k/uL (0-1.0); Monocytes % (A) 5 %; Neutrophils # (A) 4.4 k/uL (1.3-7.7); Neutrophils % (A) 58 %; Platelet Count 215 k/uL (150-450); RBC 3.57 m/uL (3.80-5.40); RDW 14.3 % (11.5-15.5); WBC 7.5 k/uL (3.8-10.6)
[2021-04-22 04:45] LABS: African American GFR (CKD) >90 (>60 ml/min/1.73 sqM); Anion Gap 5 mmol/L; Blood Urea Nitrogen 9 mg/dL (7-17); Calcium 9.3 mg/dL (8.4-10.2); Carbon Dioxide 22 mmol/L (22-30); Chloride 112 mmol/L (98-107); Glucose 102 mg/dL (74-99); Non-African American GFR(CKD) >90 (>60 ml/min/1.73 sqM); Potassium 3.2 mmol/L (3.5-5.1); Sodium 139 mmol/L (137-145)
[2021-04-22] MEDS: POTASSIUM CHLORIDE ER 20 MEQ TAB.ER PO SCH ×4 (05:12→12:17)
[2021-04-22] MEDS: PANTOPRAZOLE 40 MG TABLET PO SCH (06:34)
[2021-04-22] MEDS: HEPARIN SODIUM,PORCINE/PF 5,000 UNIT/0.5 ML SYRINGE SQ SCH (08:54)
[2021-04-22] MEDS: GABAPENTIN 300 MG CAP PO SCH (08:55)
[2021-04-22] MEDS: traMADol 50 MG TAB PO SCH (08:55)
[2021-04-22] MEDS: FUROSEMIDE 20 MG TAB PO SCH (08:55)
[2021-04-22] MEDS: TROSPIUM CHLORIDE 20 MG TABLET PO SCH (08:56)
[2021-04-22] MEDS: tiZANidine 4 MG TAB PO SCH (08:57)
[2021-04-22 09:41] VITALS: BP 130/76; PULSE 79; RESP 14
[2021-04-22] MEDS ORDERED: Potassium Replacement Protocol 1 EACH MISC MISCELLANE PRN (10:10)
[2021-04-22] MEDS ORDERED: Magnesium Replacement Protocol 1 EACH MISC MISCELLANE PRN (10:10)
--- NOTE | 2021-04-22 10:14 | P.PN ---
Subjective Progress Note Date: 04/22/21 55-year-old female with a history of progressive multiple sclerosis, and indwelling Myers catheter. The patient presented to the emergency department on April 18, complaining of fever, weakness, and possible recurrent urinary tract infection. The patient was recently started on Macrobid, about 5 days prior to admission. Unfortunately, the patient got progressively weaker, with fevers, and came into the emergency room where she was admitted with a diagnosis of probable urinary tract infection/we were called to see her today because she became hypotensive. She received 1/2 L of fluid on the floor. She is currently on antibiotics. Despite that, she was still hypotensive, and we decided to ernandez sfer her to the intensive care unit. Reactive examine her and spoke to her on the floor. White count was 9.3, hemoglobin 10.9, hematocrit 31.7, and platelet count 185,000. Sodium 138, potassium 3.7, chlorides 100, CO2 26, anion gap 12, BUN 13, and creatinine 0.77. Urine from yesterday was yellow and turbid. It was 1+ protein 2+ ketones and small amount of blood. Leukocyte esterase was large positive. There are 29 RBCs, greater than then 182 WBCs, with a white blood cell clumps, and moderate bacteria. Coronavirus testing was negative. Currently, the patient is on Fortaz, because her previous pathogens were sensitive to this antibiotic. She is in no distress. The patient is seen today 04/20/2021 in follow-up in the intensive care unit. He was transferred here yesterday for hypotension secondary to sepsis. Currently she is awake and alert in no acute distress. She is maintaining O2 saturation on the 90s on room air. Blood cultures revealing no growth to date. Urine culture pending. White count 8.3. Hemoglobin 11.3. Platelet count 143. Sodium 139. Potassium 3.4. Bicarb 21. Creatinine 0.66. Cortisol level 11. She is currently afebrile. Did have a T-max last evening at 102.7. She has 0.9 normal saline 130 ML's per hour. She is on antibiotics in the form of cef tazidime. She is seen today 04/21/2021 in follow-up in the intensive care unit. She is currently resting fairly comfortably in bed. Awake, alert, no acute distress. She is maintaining O2 saturations in the 90s on room air. She has 0.9 normal saline at 130 ML's per hour. She is continued on Fortaz. Remains afebrile. Hemodynamically stable. Blood cultures reveal no growth. Urine culture pending. White count 5.6. Hemoglobin 11.3. Sodium 139. Potassium 3.9. Creatinine 0.57. Glucose 160. Remains on hydrocortisone 50 mg IV every 6 hours. Heparin for DVT prophylaxis. The patient is seen today 04/22/2021 in follow-up in the intensive care unit. She remains off regular medical floor for. She is currently awake and alert in no acute distress. Sitting up in bed. Maintaining good O2 saturations in the 90s on room air. No IV fluids. Blood cultures reveal no growth. Urine culture is positive for gram-negative bacilli 2. ID pending. She remains on ceftaz edema. Afebrile. White count 7.5. Hemoglobin 11.2. Sodium 139. Potassium 3.2. Chloride 112. Bicarb 22. Creatinine 0.58. Remains on heparin for DVT. Objective - Vital Signs Vital signs: Vital Signs Temp 97.9 F 04/22/21 08:00 Pulse 79 04/22/21 08:00 Resp 14 04/22/21 08:00 BP 130/76 04/22/21 08:00 Pulse Ox 95 04/22/21 08:00 Intake & Output 04/21/21 04/22/21 04/22/21 18:59 06:59 18:59 Intake Total 1290 350 Output Total 400 700 Balance 890 -350 Intake: IV 210 100 Sodium Chloride 0.9% 1, 110 000 ml @ 130 mls/hr IV . [id number] RICARDA Rx#:[id number] cefTAZidime 2 gm In 100 100 Sodium Chloride 0.9% 100 ml @ 25 mls/hr IVPB Q8HR RICARDA Rx#:[id number] Oral 1080 250 Output: Urine 400 700 Other: Voiding Method Indwelling Catheter Indwelling Catheter Indwelling Catheter - Exam GENERAL EXAM: Alert, pleasant 55-year-old female patient, on room air, comfortable in no apparent distress. HEAD: Normocephalic. EYES: Normal reaction of pupils, equal size. NOSE: Clear with pink turbinates. THROAT: No erythema or exudates. NECK: No masses, no JVD. CHEST: No chest wall deformity. LUNGS: Equal air entry with no crackles, wheeze, rhonchi or dullness. CVS: S1 and S2 normal with no audible murmur, regular rhythm. ABDOMEN: No hepatosplenomegaly, normal bowel sounds, no guarding or rigidity. SPINE: No scoliosis or deformity SKIN: No rashes CENTRAL NERVOUS SYSTEM: No focal deficits, tone is normal in all 4 extremities. EXTREMITIES: There is no peripheral edema. No clubbing, no cyanosis. Perip heral pulses are intact. - Labs CBC & Chem 7: 04/22/21 03:29 04/22/21 03:29 Labs: Abnormal Lab Results - Last 24 Hours (Table) 04/22/21 04/22/21 Range/Units 03: 03:29 RBC 3.57 L (3.80-5.40) m/uL Hgb 11.2 L (11.4-16.0) gm/dL Hct 32.6 L (34.0-46.0) % Potassium 3.2 L (3.5-5.1) mmol/L Chloride 112 H (98-107) mmol/L Glucose 102 H (74-99) mg/dL Microbiology - Last 24 Hours (Table) 04/18/21 20:00 Blood Culture - Preliminary Blood No Growth after 72 hours 04/18/21 19:40 Blood Culture - Preliminary Blood No Growth after 72 hours 04/18/21 19:40 Urine Culture - Preliminary Urine,Voided Gram Neg Bacilli Gram Neg Bacilli#2 Assessment and Plan Assessment: 1 Acute urinary tract infection, with possible bacteremia and septic shock. Recovered. Urine culture showing gram-negative bacilli 2. ID pending. Remains on Fortaz. 2 History of recurrent urinary tract infections, most recently secondary to pseudomonas aeruginosa and Escherichia coli. 3 History of secondary progressive multiple sclerosis. 4 History of spastic colon. 5 History of right buttock decubitus ulcer. 6 Lifelong nontobacco user. Plan: The patient was seen and evaluated by Dr. Cantrell Urine culture ID pending Continue ceftazidime Transfer to regular medical floor We will continue to follow I, the cosigning physician, performed a history & physical examination of the patient. Lungs sounds are clear. Maintaining good O2 saturations in the 90s on room air. I discussed the assessment and plan of care with my nurse practitioner, Jovana Wallace. I attest to the above note as dictated by her.
[2021-04-22 10:48] LABS: Magnesium 1.7 mg/dL (1.6-2.3); Potassium 3.5 mmol/L (3.5-5.1)
[2021-04-22] MEDS: CHOLECALCIFEROL 25 MCG (1000 IU) TABLET PO SCH (11:14)
[2021-04-22] MEDS: MULTIVITAMINS, THERA 1 EACH TAB PO SCH (11:16)
[2021-04-22] MEDS: MAGNESIUM SULFATE-D5W PMX 1 GM in DEXTROSE/WATER 1 100ML.BAG IVPB SCH ×2 (11:16→12:17)
--- NOTE | 2021-04-22 13:32 | PN ---
PROGRESS NOTE DATE OF SERVICE: 04/22/2021 REASON FOR FOLLOWUP: Pseudomonas and Citrobacter urinary tract infection. INTERVAL HISTORY: Patient is afebrile. The patient is feeling better. Breathing comfortably. 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 No chest pain, shortness of breath or cough. No abdominal pain or diarrhea. PHYSICAL EXAMINATION: Blood pressure 130/76, pulse 79, temp is 97.9, she is 95% on room air. General description is a middle-aged female lying in bed in no distress. Respiratory system: Unlabored breathing. Clear to auscultation anteriorly. Heart S1, S2. Regular rate and rhythm. Abdomen: Soft, no tenderness. LABS: Hemoglobin is 11.1, white count 7.5. BUN of 9, creatinine 0.58. Urine with Acinetobacter and Pseudomonas. DIAGNOSTIC IMPRESSION AND PLAN: Patient with Acinetobacter Pseudomonas urinary tract infection. Overall improvement on Fortaz to finish therapy with twice a day for 10 days and close outpatient followup. Discussed with the nurse practitioner for admitting team working on discharge. MMODL / IJN: [id number] /
--- NOTE | 2021-04-22 17:41 | DS ---
DISCHARGE SUMMARY DATE OF SERVICE: 04/22/2021 FINAL DIAGNOSIS: 1. Acute urinary tract infection with severe sepsis, septic shock and hypotension with failure of outpatient treatment, present on admission, caused by Pseudomonas aeruginosa and Citrobacter freundii. 2. Increased white count. 3. Previous history of Pseudomonas and multiple urinary tract infections. 4. Generalized weakness. 5. History of multiple sclerosis. 6. Gait dysfunction. 7. History of spastic colon. 8. History of left leg edema. 9. History of right buttock decubitus. 10.Hypokalemia. 11.Anemia, normocytic anemia of chronic disease. 12.FULL CODE. DISCHARGE DISPOSITION: The patient will be discharged in stable condition with guarded prognosis. HISTORY OF PRESENT ILLNESS: This 55-year-old woman with a past medical history of multiple medical problems presented with UTI with sepsis. Patient was treated with broad-spectrum IV antibiotics. At present the patient is keen on going home. The patient will be discharged in stable condition with guarded prognosis. On exam, vitals are stable. CARDIOVASCULAR: S1, S2 muffled. ABDOMEN: Soft. NERVOUS SYSTEM: No focal deficit. The patient was seen by Infectious Disease, Dr. Bacon, also. DISCHARGE ADVICE AND MEDICATIONS: 1. Diet is cardiac. 2. Activity limited until followup. 3. Follow up with Dr. Pascual in 2-3 days. 4. Follow up with Infectious Disease p.r.n. as recommended. 5. Lasix 20 mg daily. 6. Multivitamins 1 p.o. daily. 7. Neurontin 600 mg p.o. b.i.d. 8. Prilosec 20 mg p.o. daily. 9. Tizanidine 4 mg p.o. daily. 10.Ultram mg p.o. b.i.d. 11.VESIcare 10 mg at bedtime. 12.Vitamin D3 25 mcg p.o. daily. 13.Zanaflex 8 mg at bedtime. 14.Cipro 750 mg p.o. b.i.d. for 10 days. 15.Lactobacillus 1 b.i.d. 16.Motrin 400 mg q.6 p.r.n. 17.Robaxin 500 mg p.o. daily. 18.Iron 1000 mg at bedtime. 19.Tylenol p.r.n. Once again, the patient will be discharged in stable condition with guarded prognosis. MMODL / IJN: [id number] / MTDJg
== END 2021-04-22 15:55 | disposition home health service (06) | DRG 698 ==
LOC: EC 18:54 → 4SSUR 20:27 → 2SICU 04-19 10:27
PROVIDERS: ADMIT Hospitalist; ATTEND Hospitalist
DX: T83.518A Infection and inflammatory reaction due to other urinary catheter, initial encounter (principal); A41.9 Sepsis, unspecified organism; R65.21 Severe sepsis with septic shock; N39.0 Urinary tract infection, site not specified; G35 Multiple sclerosis; Z87.440 Personal history of urinary (tract) infections; Y84.6 Urinary catheterization as the cause of abnormal reaction of the patient, or of later complication, without mention of misadventure at the time of the procedure; B96.5 Pseudomonas (aeruginosa) (mallei) (pseudomallei) as the cause of diseases classified elsewhere; Z20.822 Contact with and (suspected) exposure to COVID-19; B96.89 Other specified bacterial agents as the cause of diseases classified elsewhere; E87.6 Hypokalemia; D63.8 Anemia in other chronic diseases classified elsewhere; I10 Essential (primary) hypertension; K58.9 Irritable bowel syndrome, unspecified; R33.8 Other retention of urine; Z82.3 Family history of stroke; Z79.899 Other long term (current) drug therapy
CPT/HCPCS: 36415; 71045; 80048; 80053; 81001; 82533; 82550; 83605; 83735; 84132; 84443; 84484; 85025; 85610; 85730; 87040; 87077; 87086; 87186; 87635; 93005; 99291

== ENCOUNTER → 2021-09-09 | Outpatient (CLI) | payer MEDICARE, SELFPAY ==
--- NOTE | 2021-09-09 16:56 | MR ---
EXAMINATION TYPE: MR brain/cspine wo/w DATE OF EXAM: 09/09/2021 COMPARISON: 08/28/2015 HISTORY: Progressive MS, Headaches CONTRAST: Performed utilizing 8 mL intravenous Gadavist gadolinium contrast. TECHNIQUE: Multiplanar, multisequence imaging of the brain is performed on a 3.0 [place]ene magnet. Demye linating disease protocol with additional Sagittal Flair sequence is performed. Study is performed wi thin 24 hours of arrival to the hospital. FINDINGS: T2 White Matter Lesions Present : Yes Approximate Number of Lesions: Multiple scattered Locations Identified : Periventricular and subcortical deep white matter Size of Largest Lesion(s): 1. 1.0 x 0.7x 1.0 cm. Location: Periventricular Sequence 401 Image 22 (axial) and Sequence 1601 Imag e 167 (sagittal). 2. 0.4 x 1.0 x 0.6 cm. Location: Left centrum semiovale. Ventricular white matter Sequence 401 Imag e 23 (axial) and Sequence 1601 Image 104 (sagittal). Enhancing Lesion(s) Present: No Change from Prior: Stable Diffusion-weighted imaging is performed. A very subtle uptake with in an anterior deep white matter lesion may be present on diffusion suggesting acute plaque. Series 905 image 168. This white matter c hange was present previous exam Ventricles and sulci are prominent for the patient age. There are no abnormal extra-axial fluid collections. The ventricular system and cisternal spaces are somewhat prominent in size. This is not significantly changed from comparison. The craniocervical ju nction appears within normal limits. The dural venous sinuses appear patent. No abnormal enhancement is present on post contrast images. . The visualized sinuses are clear. Visu alized orbits are unremarkable. IMPRESSION: 1. Multiple periventricular white matter changes extending perpendicular to the ventricles are nonsp ecific but can be compatible with multiple sclerosis. These are essentially stable from the compariso n. One white matter change in the anterior left frontal lobe near the lateral ventricle may have slig ht increased signal on diffusion suggesting this could be acute to subacute active plaque. This was p resent previously. EXAMINATION TYPE: MR brain/cspine wo/w DATE OF EXAM: 09/09/2021 COMPARISON: 08/28/2015 HISTORY: Progressive MS, Headaches CONTRAST: Performed utilizing 8 mL intravenous Gadavist gadolinium contrast. TECHNIQUE: Multiplanar multiecho imaging on a 3.0 Adilene magnet is performed through the cervical spin e. FINDINGS: Some signal change may be within the spinal cord posterior to the C3 level. Note is made of left para central disc bulge with anterior thecal sac contact and comes in close approximation of the spinal co rd. Cord deformity is not identified. Some mild C3-4 foraminal narrowing may be present bilaterally. Broad-based disc bulging has moderate anterior thecal sac compression C5-6 level. This is cord contac t. No cord deformity is evident. Neural foramen are patent. A small right paracentral disc bulge is seen 6 7 has mild anterior thecal sac compression. No cord co ntact or spinal canal stenosis is present. IMPRESSIONS: 1. Some mild signal change appears to be present in the axial plane within the spinal cord posterior to the C3 level. This is an interval change. Multiple sclerosis could be considered. 2. Previous abnormal signal posterior to the C5-6 disc level is not identified on the current exam. 3. Disc bulging at C5-6 appears diminished from comparison.
== END | disposition home or self-care (01) ==
LOC: RADMRIMAIN 11:40
PROVIDERS: ATTEND Psychiatry & Neurology Neurology
DX: G35 Multiple sclerosis (principal); M50.222 Other cervical disc displacement at C5-C6 level; R90.89 Other abnormal findings on diagnostic imaging of central nervous system
CPT/HCPCS: 70553; 72156; A9585

== ENCOUNTER → 2021-12-01 | Outpatient (CLI) | payer MEDICARE ==
--- NOTE | 2021-12-01 11:44 | US ---
EXAMINATION TYPE: US kidneys/renal and bladder DATE OF EXAM: 12/01/2021 COMPARISON: NONE CLINICAL HISTORY: N39.0 chronic UTI, Z12.31 Screening Mammo. EXAM MEASUREMENTS: Right Kidney: 9.3 x 3.6 x 3.4 cm Left Kidney: 8.8 x 3.7 x 4.0 cm Difficult and limited study due to rib shadowing and overlying bowel gas Exam done with patient sitting in wheelchair Right Kidney: dilated renal pelvis Left Kidney: 1.1cm cystic area mid inferior pole Bladder: not distended, tabares catheter IMPRESSION: 1. Left renal cyst. 2. Minimal prominence right renal pelvis. This may be due to an extrarenal pelvis.
--- NOTE | 2021-12-01 12:12 | MM ---
Reason for exam: screening (asymptomatic). Last mammogram was performed 3 years and 8 months ago. History: Patient is postmenopausal and had first child at age 38. Family history of breast cancer in grandmother. Benign US biopsy breast VAD LT of the left breast, March 21, 2017. Physical Findings: A clinical breast exam by your physician is recommended on an annual basis and results should be correlated with mammographic findings. MG 3D Screening Mammo W/Cad Bilateral CC and MLO view(s) were taken. Prior study comparison: March 30, 2018, bilateral MG 3d diag mammo w/cad [place]. October 09, 2017, left breast MG 3d diag mammo w/cad [place]. March 02, 2017, bilateral MG 3d screening mammo w/cad. There are scattered fibroglandular densities. Previous mammotome biopsy in the left breast. No significant changes when compared with prior studies. ASSESSMENT: Benign, BI-RAD 2 RECOMMENDATION: Routine screening mammogram of both breasts in 1 year.
== END | disposition home or self-care (01) ==
LOC: RADUSWWP 10:46
PROVIDERS: ATTEND Internal Medicine
DX: Z12.31 Encounter for screening mammogram for malignant neoplasm of breast (principal); N28.1 Cyst of kidney, acquired; Z78.0 Asymptomatic menopausal state; Z80.3 Family history of malignant neoplasm of breast
CPT/HCPCS: 76770; 77063; 77067

== ENCOUNTER → 2022-01-05 | Day surgery (SDC) | payer MEDICARE ==
[2022-01-03 15:46] VITALS: BMI 32.5
== END ==
LOC: CATHCVL 07:26
PROVIDERS: ATTEND Internal Medicine Infectious Disease
DX: Z45.2 Encounter for adjustment and management of vascular access device (principal)
CPT/HCPCS: 36410; 76937; C1751

== ENCOUNTER → 2022-06-08 | Outpatient (CLI) | payer MEDICARE ==
--- NOTE | 2022-06-08 13:29 | US ---
EXAMINATION TYPE: US kidneys/renal and bladder DATE OF EXAM: 06/08/2022 COMPARISON: US renal 12/01/2021. CLINICAL HISTORY: N13.39 HYDRONEPHROSIS. [place] F/U EXAM MEASUREMENTS: Right Kidney: 9.2 x 4.0 x 3.9 cm Left Kidney: 9.1 x 4.3 x 3.7 cm Difficult exam, pt scanned in wheelchair Right Kidney: Prominence of right renal pelvis as visualized on prior . No arron hydronephrosis. No shadowing calculi. No solid mass. Left Kidney: No evidence of hydro, cyst lower pole unable to be visualized on today's exam . No calc otilio. No solid mass. Bladder: Cath in place. Under distended, limiting evaluation. IMPRESSION: 1. No hydronephrosis. 2. Minimal prominence of the right renal pelvis redemonstrated likely representing an extrarenal pel vis.
--- NOTE | 2022-06-08 13:29 | US ---
EXAMINATION TYPE: US kidneys/renal and bladder DATE OF EXAM: 06/08/2022 COMPARISON: US renal 12/01/2021. CLINICAL HISTORY: N13.39 HYDRONEPHROSIS. [place] F/U EXAM MEASUREMENTS: Right Kidney: 9.2 x 4.0 x 3.9 cm Left Kidney: 9.1 x 4.3 x 3.7 cm Difficult exam, pt scanned in wheelchair Right Kidney: Prominence of right renal pelvis as visualized on prior . No arron hydronephrosis. No shadowing calculi. No solid mass. Left Kidney: No evidence of hydro, cyst lower pole unable to be visualized on today's exam . No calc otilio. No solid mass. Bladder: Cath in place. Under distended, limiting evaluation. IMPRESSION: 1. No hydronephrosis. 2. Minimal prominence of the right renal pelvis redemonstrated likely representing an extrarenal pel vis.
== END | disposition home or self-care (01) ==
LOC: RADUSWWP 12:24
PROVIDERS: ATTEND Urology
DX: N13.39 Other hydronephrosis (principal)
CPT/HCPCS: 76770

== ENCOUNTER → 2023-03-17 | Outpatient (CLI) | payer MEDICARE | END | disposition home or self-care (01) | LOC: LABWHC1 08:15 | PROVIDERS: ATTEND Psychiatry & Neurology Neurology | DX: Z53.9 Procedure and treatment not carried out, unspecified reason (principal) ==

== ENCOUNTER → 2023-03-17 | Outpatient (CLI) | payer MEDICARE ==
--- NOTE | 2023-03-18 16:32 | MR ---
EXAMINATION TYPE: MR brain wo con DATE OF EXAM: 03/17/2023 8:17 AM COMPARISON: MR brain C-spine 09/09/2021, MR brain 01/31/2020, 09/28/2018. CLINICAL INDICATION:Female, 57 years old with history of G35 MULTIPLE SCLEROSIS R25.2 CRAMP AND SPASM ; PHH, Cramps and spasms, MS. TECHNIQUE: Multi planar, multi sequence imaging was performed through the brain without administratio n of intravenous contrast. FINDINGS: The ramey-white junctions, ventricular system, and cisterns appear unremarkable. Multiple scattered, predominantly pericallosal distribution and deep white matter T2/FLAIR hyperintense lesions with Daws on finger consistent with known multiple sclerosis. Approximately 25 lesions in left cerebral hemisph ere and 15 in the right cerebral hemisphere. Largest lesion is identified within the left posterior p eriventricular white matter measuring up to 1.6 cm. Overall no significant change from prior exams. E valuation is limited due to lack of intravenous contrast to assess for active demyelination. Please r efer to dedicated MRI cervical spine attending findings. Midline structures show no abnormality. Diff usion-weighted imaging shows no evidence of restricted diffusion. The susceptibility weighted images do not reveal any evidence for micro-hemorrhage. Age-appropriate cerebral volume loss. The bone marrow signal is within normal limits. Paranasal sinuses and mastoid air cells: No significa nt paranasal sinus disease. Visualized orbits: Orbital contents are intact. IMPRESSION: 1. No evidence of acute/subacute infarct. 2. Stable moderate scattered pericallosal and deep white matter T2/FLAIR hyperintense lesions compati ble with known multiple sclerosis. No definitive new lesions or significant change in size of prior e xam. Limited exam due to lack of intravenous contrast to assess for active demyelination.
--- NOTE | 2023-03-18 20:19 | MR ---
EXAMINATION TYPE: MR cspine/tspine wo con DATE OF EXAM: 03/17/2023 8:17 AM CLINICAL INDICATION:Female, 57 years old with history of G35 MULTIPLE SCLEROSIS R25.2 CRAMP AND SPASM ; Cramps and spasms, MS. COMPARISON: MRI brain 09/09/2021 TECHNIQUE: Multi planar, multi sequence imaging was performed utilizing: T1-weighted, T2-weighted, a nd turbo inversion recovery imaging of the cervical and thoracic spine. MR contrast: IV Contrast: None. FINDINGS: CERVICAL: Alignment: The cervical vertebral bodies have preserved heights. There is increased kyphosis of the t horacic spine. Bones: Mild degeneration changes with disc osteophyte complexes, osteophyte formation facet and uncov ertebral joint arthropathy. Cord: Mild increased cord signal at C5-C6 which is similar to prior on 09/09/2021. The spinal cord is unremarkable with regards to their signal intensity and morphology. Discs: Multilevel disc desiccation is present. C2-C3: No significant disc pathology. The spinal canal is patent. No neural foraminal stenosis. C3-C4: A disc osteophyte complex is present with mild spinal canal stenosis. Bilateral facet and unc overtebral joint arthropathy are present with moderate right and mild to moderate left neural foramin al stenosis. C4-C5: A disc osteophyte complex is present which minimally narrows the ventral subarachnoid space. Bilateral facet and uncovertebral joint arthropathy are present with mild bilateral neural foraminal stenosis.BMB@ C5-C6: A disc osteophyte complex is present with mild to moderate spinal canal stenosis and displaces the spinal cord posteriorly slightly. Bilateral facet and uncovertebral joint arthropathy are prese nt with mild bilateral neural foraminal stenosis. C6-C7: A disc osteophyte complex is present with mild spinal canal stenosis. Bilateral facet and unc overtebral joint arthropathy are present with moderate to severe bilateral neural foraminal stenosis. C7-T1: No significant disc pathology. The spinal canal is patent. No neural foraminal stenosis. THORACIC: Limited evaluation secondary to motion. No evidence significant spinal canal or neural fora celina stenosis. Spinal cord is within normal limits Other: Prominence of the right renal collecting system. IMPRESSION: 1. No definitive evidence of disc herniation or significant spinal canal stenosis. 2. Multilevel disc degeneration with associated osteoarthritic changes worse at C3-C4 and C5-C6 with at least mild spinal canal stenosis. This osteophyte complex at C5-C6 displaces the spinal cord post eriorly slightly there is mild cord signal compatible with myelomalacia which is not significantly ch anged from 09/09/2021. 3. Prominent right renal collecting system correlate for hydronephrosis. 4, No evidence for significant spinal canal or neural foraminal stenosis of the thoracic spine.
== END | disposition home or self-care (01) ==
LOC: RADMRIMAIN 06:16
PROVIDERS: ATTEND Psychiatry & Neurology Neurology
DX: M50.31 Other cervical disc degeneration, high cervical region (principal); M48.02 Spinal stenosis, cervical region; M25.78 Osteophyte, vertebrae; G35 Multiple sclerosis; R25.2 Cramp and spasm; R26.9 Unspecified abnormalities of gait and mobility; R90.82 White matter disease, unspecified
CPT/HCPCS: 70551; 72141; 72146

== ENCOUNTER → 2023-05-31 | Outpatient (CLI) | payer MEDICARE ==
--- NOTE | 2023-05-31 14:44 | US ---
EXAMINATION TYPE: US kidneys/renal and bladder DATE OF EXAM: 05/31/2023 COMPARISON: NONE CLINICAL INDICATION: Female, 58 years old with history of N13.39 OTHER HYDRONEPHROSIS; only symptom i s bladder spasms EXAM MEASUREMENTS: Right Kidney: 8.6 x 3.9 x 3.7 cm Left Kidney: 9.1 x 3.1 x 4.2 cm Right Kidney: No hydronephrosis or masses seen Left Kidney: No hydronephrosis or masses seen There is no evidence for hydronephrosis at this point in time. No nephrolithiasis is seen. No oneil s are identified. The urinary bladder is anechoic. Bilateral ureteral jets are seen. IMPRESSION: No significant abnormality seen.
== END | disposition home or self-care (01) ==
LOC: RADUSWWP 12:26
PROVIDERS: ATTEND Urology
DX: N13.39 Other hydronephrosis (principal); N30.20 Other chronic cystitis without hematuria
CPT/HCPCS: 76770

== ENCOUNTER 2024-01-20 13:41 | Emergency (ER) | payer MEDICARE ==
--- NOTE | 2024-01-20 14:08 | ED ---
Female Urogenital HPI - General Source: patient, family, RN notes reviewed Mode of arrival: wheelchair Limitations: no limitations <Nan Mcelroy - Last Filed: 01/20/24 16:52> <Farnaz Garza - Last Filed: 01/20/24 19:15> - General Chief complaint: Urogenital Stated complaint: Catheter issues Time Seen by Provider: 01/20/24 14:06 - History of Present Illness Initial comments: 58-year-old female presenting to the ER with a chief complaint of urinary catheter malfunction. Patient has a past medical history significant of multiple sclerosis and is wheelchair-bound. She has an indwelling urinary catheter. She states for the past 2 days she has been having an increase in suprapubic abdominal pressure and has been noting "leaking" around her urethra. She states urine is still collecting in the bag but she is concerned there may be a blockage or catheter has become dislodged. She does report she has multip le bladder stones and believes 1 pasted this morning. She denies any fevers, chills, night sweats, nausea, vomiting, chest pain, shortness of breath, peripheral edema. (Nan Mcelroy) - Related Data Home Medications Medication Instructions Recorded Confirmed Gabapentin [Neurontin] 600 mg PO BID 03/16/17 01/03/22 tiZANidine HCL [Zanaflex] 8 mg PO HS 03/16/17 01/03/22 Solifenacin Succinate [Vesicare] 10 mg PO HS 10/23/20 01/03/22 Cholecalciferol [Vitamin D3 (25 25 mcg PO DAILY 04/18/21 01/03/22 Mcg = 1000 Iu)] Furosemide [Lasix] 20 mg PO DAILY 04/18/21 01/03/22 Ocrevus 1 dose IV Q182D 04/18/21 01/03/22 tiZANidine HCL 4 mg PO DAILY 04/18/21 01/03/22 Nitrofurantoin Monohyd/M-Cryst 100 mg PO Q48H 01/03/22 01/03/22 [Macrobid] Previous Rx's Medication Instructions Recorded Cephalexin [Keflex] 500 mg PO Q12HR 7 Days #14 cap 01/20/24 Allergies Allergy/AdvReac Type Severity Reaction Status Date / Time No Known Allergies Allergy Verified 01/20/24 13:46 Review of Systems ROS Other: All systems not noted in ROS Statement are negative. <Nan Mcelroy - Last Filed: 01/20/24 16:52> ROS Other: All systems not noted in ROS Statement are negative. <Farnaz Garza - Last Filed: 01/20/24 19:15> ROS Statement: Those systems with pertinent positive or pertinent negative responses have been documented in the HPI. Past Medical History Additional Past Medical History / Comment(s): Multiple Sclerosis. Wheelchair bound, non weight bearing. Spastic colon. Tabares catheter, chronic UTI's. "B reathing diminished, SOB when talks too much". History of Any Multi-Drug Resistant Organisms: None Reported Past Surgical History: No Surgical Hx Reported Additional Past Surgical History / Comment(s): Colonoscopy. Past Anesthesia/Blood Transfusion Reactions: No Reported Reaction Past Psychological History: No Psychological Hx Reported Smoking Status: Never smoker Past Alcohol Use History: None Reported Past Drug Use History: None Reported - Past Family History Mother Family Medical History: Cancer Additional Family Medical History / Comment(s): Brain tumor. Father Family Medical History: CVA/TIA Additional Family Medical History / Comment(s): from stroke. <Nan Mcelroy - Last Filed: 01/20/24 16:52> General Exam Limitations: physical limitation (wheelchair bound ) General appearance: alert, in no apparent distress Respiratory exam: Present: normal lung sounds bilaterally. Absent: respiratory distress, wheezes, rales, rhonchi, stridor Cardiovascular Exam: Present: regular rate, normal rhythm, normal heart sounds. Absent: systolic murmur, diastolic murmur, rubs, gallop, clicks GI/Abdominal exam: Present: soft, tenderness (suprapubic), normal bowel sounds Extremities exam: Present: normal inspection, normal capillary refill. Absent: tenderness, pedal edema, joint swelling, calf tenderness Skin exam: Present: warm, dry, intact, normal color. Absent: rash <Nan Mcelroy - Last Filed: 01/20/24 16:52> Course Vital Signs 01/20/24 01/20/24 01/20/24 13:42 18:24 18:44 Temperature 98.5 F Pulse Rate 99 79 Respiratory 20 16 18 Rate Blood Pressure 143/83 140/81 O2 Sat by Pulse 97 98 Oximetry Medical Decision Making <Nan Mcelroy - Last Filed: 01/20/24 16:52> <Farnaz Garza - Last Filed: 01/20/24 19:15> - Medical Decision Making Was pt. sent in by a medical professional or institution (LISA Stephens, CHIEF SUPPLY CHAIN OFFICER, urgent care, hospital, or group home...) When possible be specific @ -No Did you speak to anyone other than the patient for history (EMS, parent, family, police, friend...)? What history was obtained from this source @ -No Did you review nursing and triage notes (agree or disagree)? Why? @ -I reviewed and agree with nursing and triage notes Were old charts reviewed (outside hosp., previous admission, EMS record, old EKG, old radiological studies, urgent care reports/EKG's, group home records)? Report findings @ -No old charts were reviewed Differential Diagnosis (chest pain, altered mental status, abdominal pain women, abdominal pain men, vaginal bleeding, weakness, fever, dyspnea, syncope, headache, dizziness, GI bleed, back pain, seizure, CVA, palpatations, mental health, musculoskeletal)? @ -UTI, urinary retention, Tabares catheter malfunction this list is not meant to be all-inclusive EKG interpreted by me (3pts min.). @ -None X-rays interpreted by me (1pt min.). @ -None done CT interpreted by me (1pt min.). @ -None done U/S interpreted by me (1pt. min.). @ -None done What testing was considered but not performed or refused? (CT, X-rays, U/S, labs)? Why? @ -None What meds were considered but not given or refused? Why? @ -None Did you discuss the management of the patient with other professionals (professionals i.e. LISA Stephens, CHIEF SUPPLY CHAIN OFFICER, lab, RT, psych nurse, social worker assistant, metal room dental technician, teacher, chief fundraising officer, case advocate)? Give summary @ -No Was smoking cessation discussed for >3mins.? @ -No Was critical care preformed (if so, how long)? @ -No Were there social determinants of health that impacted care today? How? (Homelessness, low income, unemployed, alcoholism, drug addiction, transportation, low edu. Level, literacy, decrease access to med. care, custodial, rehab)? @ -No Was there de-escalation of care discussed even if they declined (Discuss DNR or withdrawal of care, Hospice)? DNR status @ -No What co-morbidities impacted this encounter? (DM, HTN, Smoking, COPD, CAD, Cancer, CVA, ARF, Chemo, Hep., AIDS, mental health diagnosis, sleep apnea, morbid obesity)? @ -Multiple sclerosis, wheelchair-bound Was patient admitted / discharged? Hospital course, mention meds given and route, prescriptions, significant lab abnormalities, going to OR and other pertinent info. @ -58 year old female presenting to the ER with a chief complaint of tabares catheter issue. History and physical exam completed. Vitals stable. Patient in no signs of acute distress and non-toxic appearing. Mild suprapubic abdominal pressure to palpation. Urinalysis pending. Bladder scan performed significant for 557cc. Urine catheter replaced with and 18 [place] 30 cc balloon. Patient signed out to Farnaz Garza PA-C pending UA and disposition. (Nan Mcelroy) Was pt. sent in by a medical professional or institution (, PA, CHIEF SUPPLY CHAIN OFFICER, urgent care, hospital, or group home...) When possible be specific @ -No Did you speak to anyone other than the patient for history (EMS, parent, family, police, friend...)? What history was obtained from this source @ -No Did you review nursing and triage notes (agree or disagree)? Why? @ -I reviewed and agree with nursing and triage notes Were old charts reviewed (outside hosp., previous admission, EMS record, old EKG, old radiological studies, urgent care reports/EKG's, group home records)? Report findings @ -No old charts were reviewed Differential Diagnosis (chest pain, altered mental status, abdominal pain women, abdominal pain men, vaginal bleeding, weakness, fever, dyspnea, syncope, headache, dizziness, GI bleed, back pain, seizure, CVA, palpatations, mental health, musculoskeletal)? @ -UTI, Tabares catheter issue, bladder stones, differential Abdominal Pain Women: Appendicitis, Cholecystitis, diverticulosis, ischemic bowel, pancreatitis, hepatitis, UTI, gastroenteritis, AAA, incarcerated hernia, bowel obstruction, constipation, inflammatory bowel, hepatitis, peptic ulcer disease, splenic infarction, perforated viscus, vulvitis, ovarian torsion, PID, kidney stone, placenta abruption, this is not meant to be an all-inclusive list l EKG interpreted by me (3pts min.). @ -None X-rays interpreted by me (1pt min.). @ -None done CT interpreted by me (1pt min.). @ -None done U/S interpreted by me (1pt. min.). @ -None done What testing was considered but not performed or refused? (CT, X-rays, U/S, labs)? Why? @ -Labs and imaging of abdomen not performed due to symptoms were relieved after catheter was replaced What meds were considered but not given or refused? Why? @ -None Did you discuss the management of the patient with other professionals (professionals i.e. , PA, CHIEF SUPPLY CHAIN OFFICER, lab, RT, psych nurse, social worker assistant, metal room dental technician, teacher, chief fundraising officer, case advocate)? Give summary @ -No Was smoking cessation discussed for >3mins.? @ -No Was critical care preformed (if so, how long)? @ -No Were there social determinants of health that impacted care today? How? (Homelessness, low income, unemployed, alcoholism, drug addiction, transportation, low edu. Level, literacy, decrease access to med. care, custodial, rehab)? @ -No Was there de-escalation of care discussed even if they declined (Discuss DNR or withdrawal of care, Hospice)? DNR status @ -No What co-morbidities impacted this encounter? (DM, HTN, Smoking, COPD, CAD, Cancer, CVA, ARF, Chemo, Hep., AIDS, mental health diagnosis, sleep apnea, morbid obesity)? @ -None Was patient admitted / discharged? Hospital course, mention meds given and route, prescriptions, significant lab abnormalities, going to OR and other pertinent info. @ -Patient was discharged. Patient was seen and evaluated for Tabares catheter issue. Patient has an indwelling catheter and reports she has noticed urine leaking and has been experiencing some suprapubic discomfort. Vitals are unrema rkable. Physical exam remarkable for suprapubic tenderness. Bladder scan revealed 557 cc of urine. Urine catheter replaced with 18 [place] 30 cc balloon which was successfully draining urine. Patient reports symptoms resolved. UA revealed 2+ protein, large amount of blood, and 54 white blood cells. Prescribed Keflex for UTI. Advised to follow-up with PCP in 1 to 3 days. Strict return/alarm symptoms discussed with patient in detail and patient shows understanding and agrees to plan. Patient discharged in stable condition. Case discussed with Dr. Khan Undiagnosed new problem with uncertain prognosis? @ -No Drug Therapy requiring intensive monitoring for toxicity (Heparin, Nitro, Insulin, Cardizem)? @ -No Were any procedures done? @ -No Diagnosis/symptom? @ -Tabares catheter problem Acute, or Chronic, or Acute on Chronic? @ -Acute Uncomplicated (without systemic symptoms) or Complicated (systemic symptoms)? @ -Uncomplicated Side effects of treatment? @ -No Exacerbation, Progression, or Severe Exacerbation? @ -No Poses a threat to life or bodily function? How? (Chest pain, [place], CA, pneumonia, PE, COPD, DKA, ARF, appy, cholecystitis, CVA, Diverticulitis, Homicidal, Suicidal, threat to staff... and all critical care pts) @ -Low likelihood (Farnaz Garza) - Lab Data Lab Results 01/20/24 Range/Units 17:15 Urine Color Light Red Urine Appearance Cloudy H (Clear) Urine pH 7.5 (5.0-8.0) Ur Specific [place] 1.006 (1.001-1.035) Urine Protein 2+ H (Negative) Urine Glucose (UA) Negative (Negative) Urine Ketones Negative (Negative) Urine Blood Large H (Negative) Urine Nitrite Negative (Negative) Urine Bilirubin Negative (Negative) Urine Urobilinogen <2.0 (<2.0) mg/dL Ur Leukocyte Esterase Large H (Negative) Urine RBC 34 H (0-5) /hpf Urine WBC 54 H (0-5) /hpf Ur Squamous Epith Cells <1 (0-4) /hpf Amorphous Sediment Rare H (None) /hpf Urine Bacteria Occasional H (None) /hpf Urine Mucus Rare H (None) /hpf Disposition <Nan Mcelroy - Last Filed: 01/20/24 16:52> Is patient prescribed a controlled substance at d/c from ED?: No Time of Disposition: 18:01 <Farnaz Garza - Last Filed: 01/20/24 19:15> Clinical Impression: Tabares catheter problem Disposition: HOME SELF-CARE Condition: Stable Instructions (If sedation given, give patient instructions): Tabares Catheter Placement and Care (ED) Additional Instructions: Please follow-up with PCP for reevaluation. Please take full course of Keflex. Please return to the Emergency Department if symptoms worsen or any other concerns. Prescriptions: Cephalexin [Keflex] 500 mg PO Q12HR 7 Days #14 cap Referrals: Myranda Pascual MD [Primary Care Provider] - 1-2 days
[2024-01-20 14:12] VITALS: TEMP 98.5
[2024-01-20] MEDS: LIDOCAINE 2% URO-JET JELLY 5 ML KIT URETHRAL ONE (16:21)
[2024-01-20 17:33] LABS: Amorphous Sediment,Urine Rare /hpf; Appearance,Urine Cloudy (Clear); Bacteria,Urine Occasional /hpf; Bilirubin,Urine Negative (Negative); Blood,Urine Large (Negative); Color,Urine Light Red; Glucose,Urine (UA) Negative (Negative); Ketones,Urine Negative (Negative); Leukocyte Esterase,Urine Large (Negative); Mucus,Urine Rare /hpf; Nitrite,Urine Negative (Negative); PH, Urine 7.5 (5.0-8.0); Protein,Urine 2+ (Negative); RBC,Urine 34 /hpf (0-5); Specific Gravity,Urine 1.006 (1.001-1.035); Squamous Epithelial Cell,Urine <1 /hpf (0-4); Urobilinogen,Urine <2.0 mg/dL (<2.0); WBC,Urine 54 /hpf (0-5)
[2024-01-20] MEDS: CEPHALEXIN 500 MG CAP PO STA (18:41)
[2024-01-20 19:00] VITALS: BP 140/81; PULSE 79; RESP 18
== END 2024-01-20 18:45 | disposition home or self-care (01) ==
LOC: EC 13:41
DX: T83.098A Other mechanical complication of other urinary catheter, initial encounter (principal)
CPT/HCPCS: 51702; 81001; 87077; 87086; 87186; 99284

== ENCOUNTER → 2024-01-24 | Outpatient (CLI) | payer MEDICARE ==
--- NOTE | 2024-01-25 13:33 | MM ---
Reason for Exam: Screening (asymptomatic). Last mammogram was performed 2 year(s) and 2 month(s) ago. Patient History: Menarche at age 12. First Full-Term at age 38. Late child-bearing (after 30). Postmenopausal. 03/21/2017, Benign Core Biopsy on the left side. Maternal grandmother had breast cancer. Risk Values: Li 5 year model risk: 2.2%. NCI Lifetime model risk: 13.9%. Prior Study Comparison: 10/09/2017 Left Diagnostic Mammogram, [facility]. 03/30/2018 Bilateral Diagnostic Mammogram, [facility]. 12/01/2021 Bilateral Screening Mammogram, [facility]. Tissue Density: The breasts are almost entirely fatty. Findings: Analyzed By CAD. Left breast biopsy clip. Right breast: There is no suspicious group of microcalcifications or new suspicious mass. Left breast: There is no suspicious group of microcalcifications or new suspicious mass. Overall Assessment: Benign, BI-RAD 2 Management: Screening Mammogram of both breasts in [address] [facility] will attempt to contact patient to return for supplemental views and ultrasound if indicated. Patient should continue monthly self-breast exams. A clinical breast exam by your physician is recommended on an annual basis. This exam should not preclude additional follow-up of suspicious palpable abnormalities. Note on Li scores and lifetime risk: 1. A Li score greater than 3% is considered moderate risk. If this is the case, consider specialist referral to assess eligibility for a risk reducing agent. 2. If overall lifetime risk for the development of breast cancer is 20% or higher, the patient may qualify for future screening with alternating mammogram and breast MRI. Electronically signed and approved by: Clinton Bermudez DO
== END | disposition home or self-care (01) ==
LOC: RADMAMWWP 15:01
PROVIDERS: ATTEND Internal Medicine
DX: Z12.31 Encounter for screening mammogram for malignant neoplasm of breast (principal); Z80.3 Family history of malignant neoplasm of breast; Z78.0 Asymptomatic menopausal state
CPT/HCPCS: 77063; 77067

== ENCOUNTER → 2024-01-24 | Outpatient (CLI) | payer MEDICARE ==
--- NOTE | 2024-01-26 00:46 | MR ---
EXAMINATION TYPE: MR brain/cspine wo DATE OF EXAM: 01/24/2024 COMPARISON: Prior MRI brain and cervical spine March 17, 2023 HISTORY: MS, has infusions every 6months and needs MRI done annually TECHNIQUE: Multiplanar, multisequence imaging of the brain and brainstem cervical spine are all perfo rmed without IV contrast. FINDINGS: ALVARO: Diffusion weighted images demonstrate no evidence of a recent infarct or other diffusion abnormality. There is mild ventricular and sulcal prominence redemonstrated. Cavum veli interpositi redemonstrated . Persistent approximate 10-15 T2 hyperintense periventricular lesions. Lesions grossly stable in siz e and number from most recent prior study. Midline structures redemonstrate normal morphology. The craniocervical junction appears within claire l limits. Normal vascular flow voids are present. The visualized sinuses are clear and the globes are intact. IMPRESSION: Stable moderate pericallosal and periventricular white matter lesions from most recent MR I. Finding may be on basis of known demyelinating disease. No significant interval change. C-SPINE: FINDINGS: Sagittal images of the cervical spine show the craniocervical junction to remain within nor mal limits. Focal increased T2 signal anterior C5-C6 level is redemonstrated seen best STIR sagittal image 9. Vertebral alignment is stable and satisfactory. The vertebral body height are normal. Mil d to moderate disc space narrowing at C5-C6 level is redemonstrated. The bone marrow signal intensity is within normal limits. Axial images show C2-C3 level to remain within normal limits. Axial images at C3-C4 levels show lobulated posterior disc protrusion with most prominent left parace ntral component effacing the anterior thecal sac and uncovertebral facet degenerative changes causing mild left and moderate right-sided neural foraminal narrowing. No significant change from prior. Axial images at C4-C5 levels show uncovertebral facet degenerative changes bilaterally causing mild b ilateral neural foraminal narrowing. There is broad-based right paracentral disc protrusion minimally effaces the anterior thecal sac. No significant change from prior. Axial images at C5-C6 level show broad-based right paracentral/foraminal disc protrusion effacing ant erolateral thecal sac. There is advanced bilateral neural foraminal narrowing seen. Effacement of the ventral surface of spinal cord is redemonstrated. No significant change from prior. Axial images at C6-C7 redemonstrate right paracentral disc protrusion minimally effacing anterior the nadja sac, mild bilateral neural foraminal narrowing is seen. No significant change from prior. Axial images at C7-T1 level appear within normal limits. IMPRESSION: Multilevel degenerative changes redemonstrated most prominent at C3-C4 and C5-C6 levels a s detailed above. Increased T2 cord signal anterior right C5-C6 level remains present. No new areas o f abnormal increased T2 cord signal identified.
== END | disposition home or self-care (01) ==
LOC: RADMRIMAIN 15:53
PROVIDERS: ATTEND Psychiatry & Neurology Neurology
DX: G93.89 Other specified disorders of brain (principal); M47.812 Spondylosis without myelopathy or radiculopathy, cervical region; G35 Multiple sclerosis; R25.2 Cramp and spasm; R26.9 Unspecified abnormalities of gait and mobility
CPT/HCPCS: 70551; 72141

== ENCOUNTER 2024-07-16 18:08 | Emergency (ER) | payer MEDICARE ==
[2024-07-16 18:16] VITALS: RESP 18
--- NOTE | 2024-07-16 18:43 | ED ---
Extremity Problem HPI - General Chief complaint: Extremity Problem,Nontraumatic Stated complaint: LEFT LEG SWELLING Time Seen by Provider: 07/16/24 18:28 Source: patient, RN notes reviewed Mode of arrival: wheelchair Limitations: physical limitation - History of Present Illness Initial comments: 59-year-old female with history of MS presenting for left lower leg swelling/pain x 2 weeks. States she takes Lasix daily as she is wheelchair- bound from the MS however reports more swelling and tenderness in the left lower leg recently. Denies trauma or injury. She did undergo suprapubic catheter placement 6 weeks ago. Denies blood thinners. She is a non-smoker. Denies history of DVTs. She was sent by her PCP today to rule out DVT. Denies chest pain or shortness of breath. - Related Data Home Medications Medication Instructions Recorded Confirmed Gabapentin [Neurontin] 600 mg PO BID 03/16/17 01/03/22 tiZANidine HCL [Zanaflex] 8 mg PO HS 03/16/17 01/03/22 Solifenacin Succinate [Vesicare] 10 mg PO HS 10/23/20 01/03/22 Cholecalciferol [Vitamin D3 (25 25 mcg PO DAILY 04/18/21 01/03/22 Mcg = 1000 Iu)] Furosemide [Lasix] 20 mg PO DAILY 04/18/21 01/03/22 Ocrevus 1 dose IV Q182D 04/18/21 01/03/22 tiZANidine HCL 4 mg PO DAILY 04/18/21 01/03/22 Nitrofurantoin Monohyd/M-Cryst 100 mg PO Q48H 01/03/22 01/03/22 [Macrobid] Previous Rx's Medication Instructions Recorded Cephalexin [Keflex] 500 mg PO Q12HR 7 Days #14 cap 01/20/24 Nitrofurantoin Monohyd/M-Cryst 100 mg PO Q12HR #14 cap 01/23/24 [Macrobid] Allergies Allergy/AdvReac Type Severity Reaction Status Date / Time No Known Allergies Allergy Verified 07/16/24 18:11 Review of Systems ROS Statement: Those systems with pertinent positive or pertinent negative responses have been documented in the HPI. ROS Other: All systems not noted in ROS Statement are negative. Past Medical History Past Medical History: Neurologic Disorder Additional Past Medical History / Comment(s): Multiple Sclerosis. Wheelchair bound, non weight bearing. Spastic colon. Myers catheter, chronic UTI's. "Breathing diminished, SOB when talks too much". History of Any Multi-Drug Resistant Organisms: None Reported Past Surgical History: No Surgical Hx Reported Additional Past Surgical History / Comment(s): Colonoscopy. Past Anesthesia/Blood Transfusion Reactions: No Reported Reaction Past Psychological History: No Psychological Hx Reported Smoking Status: Never smoker Past Alcohol Use History: None Reported Past Drug Use History: None Reported - Past Family History Mother Family Medical History: Cancer Additional Family Medical History / Comment(s): Brain tumor. Father Family Medical History: CVA/TIA Additional Family Medical History / Comment(s): from stroke. General Exam Limitations: physical limitation General appearance: alert, in no apparent distress Head exam: Present: atraumatic, normocephalic, normal inspection Left Knee exam: Present: normal inspection, full ROM. Absent: tenderness, swelling Lower Leg exam: Present: normal inspection, full ROM. Absent: tenderness, swelling, erythema, palpable cord Ankle exam: Present: normal inspection, full ROM. Absent: tenderness, swelling Foot/Toe exam: Present: normal inspection, full ROM. Absent: tenderness, swelling Neurovascular tendon exam: Present: no vascular compromise. Absent: pulse deficit, abnormal cap refill, sensory deficit Neurological exam: Present: alert, oriented X3 Psychiatric exam: Present: normal affect, normal mood Skin exam: Present: warm, dry, intact, normal color. Absent: rash Course Vital Signs 07/16/24 18:11 Temperature 97.3 F L Pulse Rate 80 Respiratory 18 Rate Blood Pressure 147/74 O2 Sat by Pulse 96 Oximetry Medical Decision Making - Medical Decision Making Was pt. sent in by a medical professional or institution (, PA, ORDER ENTRY, urgent care, hospital, or long term...) When possible be specific @ -Went by PCP to rule out DVT Did you speak to anyone other than the patient for history (EMS, parent, family, police, friend...)? What history was obtained from this source @ -No Did you review nursing and triage notes (agree or disagree)? Why? @ -I reviewed and agree with nursing and triage notes Were old charts reviewed (outside hosp., previous admission, EMS record, old EKG, old radiological studies, urgent care reports/EKG's, long term records)? Report findings @ -No old charts were reviewed Differential Diagnosis (chest pain, altered mental status, abdominal pain women, abdominal pain men, vaginal bleeding, weakness, fever, dyspnea, syncope, headache, dizziness, GI bleed, back pain, seizure, CVA, palpatations, mental health, musculoskeletal)? @ -Differential Musculoskeletal Muscular strain, contusion, ligament sprain, fracture, arthritis, septic arthr itis, bursitis, cellulitis, muscle spasm, nerve compression, DVT, arterial occlusion, herpes zoster, electrolyte abnormality, tumor.... This is not meant to be in all inclusive list EKG interpreted by me (3pts min.). @ -None X-rays interpreted by me (1pt min.). @ -None done CT interpreted by me (1pt min.). @ -None done U/S interpreted by me (1pt. min.). @ -Ultrasound left lower extremity reveals no evidence for DVT What testing was considered but not performed or refused? (CT, X-rays, U/S, labs)? Why? @ -None What meds were considered but not given or refused? Why? @ -None Did you discuss the management of the patient with other professionals (professionals i.e. , PA, ORDER ENTRY, lab, RT, psych nurse, social worker aide, cost engineer, teacher, chief mechanical officer, director of casework department)? Give summary @ -No Was smoking cessation discussed for >3mins.? @ -No Was critical care preformed (if so, how long)? @ -No Were there social determinants of health that impacted care today? How? (Homelessness, low income, unemployed, alcoholism, drug addiction, transportation, low edu. Level, literacy, decrease access to med. care, assisted, rehab)? @ -No Was there de-escalation of care discussed even if they declined (Discuss DNR or withdrawal of care, Hospice)? DNR status @ -No What co-morbidities impacted this encounter? (DM, HTN, Smoking, COPD, CAD, Cancer, CVA, ARF, Chemo, Hep., AIDS, mental health diagnosis, sleep apnea, morbid obesity)? @ -None Was patient admitted / discharged? Hospital course, mention meds given and route, prescriptions, significant lab abnormalities, going to OR and other pertinent info. @ -Discharge. This is a 59-year-old female with history of MS presenting with left lower extremity swelling x 2 weeks. Sent by PCP to rule out DVT. Denies blood thinners. She does admit surgery [address] suprapubic catheter. Neurovascularly intact. No sign of bacterial infection. Ultrasound left lower extremity reveals no evidence for DVT. Results discussed with patient. Appropriate return precautions and follow-up care discussed with patient. She is agreeable to plan. Case was discussed with my ED attending Dr. Ordonez. Undiagnosed new problem with uncertain prognosis? @ -No Drug Therapy requiring intensive monitoring for toxicity (Heparin, Nitro, Insulin, Cardizem)? @ -No Were any procedures done? @ -No Diagnosis/symptom? @ -Left lower leg swelling Acute, or Chronic, or Acute on Chronic? @ -Acute Uncomplicated (without systemic symptoms) or Complicated (systemic symptoms)? @ -Uncomplicated Side effects of treatment? @ -No Exacerbation, Progression, or Severe Exacerbation? @ -No Poses a threat to life or bodily function? How? (Chest pain, [place], [place], pneumonia, PE, COPD, DKA, ARF, appy, cholecystitis, CVA, Diverticulitis, Homicidal, Suicidal, threat to staff... and all critical care pts) @ -No Disposition Clinical Impression: Left leg swelling Disposition: HOME SELF-CARE Condition: Stable Instructions (If sedation given, give patient instructions): Leg Edema (ED) Additional Instructions: Follow-up with PCP as discussed. Please return to the Emergency Department if symptoms worsen or any other concerns. Is patient prescribed a controlled substance at d/c from ED?: No Referrals: Myranda Pascual MD [Primary Care Provider] - 1-2 days Time of Disposition: 19:58
--- NOTE | 2024-07-16 19:32 | US ---
EXAMINATION TYPE: US venous doppler duplex LE LT DATE OF EXAM: 07/16/2024 7:21 PM COMPARISON: US 2016 CLINICAL INDICATION: Female, 59 years old with history of left lower leg swelling/pain; Patient state s left leg swelling/ pain in calf. No hx dvt, not on thinners. Pt has MS, is paraplegic, and wheelcha ir bound., TECHNIQUE: The lower extremity deep venous system is examined utilizing real time linear array sonog evan with graded compression, color doppler sonography, and spectral doppler. SIDE PERFORMED: Left FINDINGS: VESSELS IMAGED: Common Femoral Vein Femoral Vein Popliteal Vein Proximal Calf Veins Tape Machine Tailer reports limited study due to patient's inability to move their extremity. Left Leg: Negative for DVT as best visualized today with limitations, Color Doppler imaging shows pa tency of the vessels. Spectral waveforms are within normal limits. Unable to visualize femoral vein i n transverse for compression views, however color doppler flow seen. IMPRESSION: No ultrasound evidence for deep venous thrombosis. [facility], , 07/16/2024 7:29 PM
[2024-07-16 20:46] VITALS: BP 140/76; PULSE 76; TEMP 97.8
== END 2024-07-16 20:46 | disposition home or self-care (01) ==
LOC: EC 18:08
DX: M79.89 Other specified soft tissue disorders (principal)
CPT/HCPCS: 99283